=== PATIENT | male | born 1945 | race Caucasian/White ===

== ENCOUNTER 2017-08-29 09:38 | Emergency (ER) | payer MEDICARE ==
[~2017-08-29] VITALS: Ht 175.3 cm; Wt 74.8 kg
[~2017-08-29 09:38] MED LIST: FLOMAX0.4 MG PO; GABAPENTIN300 MG PO; HUMULIN R100 UNIT/2 SQ; LANTUS100 UNITS/ SQ; LASIX40 MG PO; OMEPRAZOLE40 MG PO; SPIRONOLACTONE25 MG PO; TRAZODONE HCL50 MG PO; Z.0.DIGOXIN250 MCG; Z.0.GABAPENTIN600 MG; Z.0.OMEPRAZOLE20 M1; Z.0.TAMSULOSIN HCL0.; Z.0.TRAZODONE HCL100; Z.2.METFORMIN HCL500; [UNRECOGNIZED DRUG - OTHER]
[2017-08-29] MEDS ORDERED: IBUPROFEN 400 MG TAB PO STA (11:34)
[2017-08-29 12:02] LABS: BASOPHILS % 0.2 % (0.0-1.0); EOSINOPHILS % 0.1 % (0.0-6.0); HEMATOCRIT 35.7 % (38.2-49.6); HEMOGLOBIN 11.1 g/dL (14.0-18.0); LYMPHOCYTES % 8.3 % (18.0-39.1); MEAN CORPUSCULAR HEMOGLOBIN 26.9 pg (28-32); MEAN CORPUSCULAR HGB CONC 31.1 g/dL (31-35); MEAN CORPUSCULAR VOLUME 86.4 fL (81-99); MONOCYTES # (AUTO) 0.9 (0.2-0.8); MONOCYTES % 7.8 % (4.4-11.3); NEUTROPHILS # (AUTO) 10.1 (2.1-6.9); NEUTROPHILS % 83.2 % (38.7-80.0); PLATELET COUNT 222 x10e3/uL (140-360); RED BLOOD COUNT 4.13 x10e6/uL (4.3-5.7); RED CELL DISTRIBUTION WIDTH 18.3 % (11.7-14.4)
[2017-08-29 12:18] LABS: ALBUMIN 3.6 g/dL (3.5-5.0); ALBUMIN/GLOBULIN RATIO 0.9 (0.8-2.0); ANION GAP 13.9 mmol/L (8-16); CALCIUM 9.1 mg/dL (8.4-10.2); CREATININE, SERUM 1.87 mg/dL (0.72-1.25); POTASSIUM 3.9 mmol/L (3.5-5.1)
[2017-08-29 12:26] LABS: CREATINE KINASE MB 0.9 ng/mL (0.00-5.00); TROPONIN I 0.066 ng/mL (0-0.300)
[2017-08-29 12:29] LABS: B-TYPE NATRIURETIC PEPTIDE2 925.6 pg/mL (0-100)
--- NOTE | 2017-08-29 12:30 | Diagnostic Imaging Report ---
PROCEDURE:CHEST 2 VIEWS TECHNIQUE:Portable AP chest INDICATION:Shortness of breath COMPARISON:[facility], , CHEST 2 VIEWS, 12/21/2016, 14:15. FINDINGS: Lungs are clear and symmetrically inflated. No pleural effusions. Normal heart size and mediastinal contour. 2-lead AICD/pacemaker over the left hemithorax. Skeleton is intact. Unchanged seventh and eighth rib osseous bridging. CONCLUSION: No acute abnormality or change from December 2016. Dictated by: Jordin Ramirez M.D. on 08/29/2017 at 12:38 Electronically approved by: Jordin Ramirez M.D. on 08/29/2017 at 12:38
[2017-08-29] MEDS ORDERED: ALBUTEROL SULF 0.083% NEB SOLN 3 ML NEB NEB STA (13:05)
[2017-08-29] MEDS ORDERED: IBUPROFEN 400 MG TAB PO ONE (14:45)
[2017-08-29] MEDS ORDERED: IBUPROFEN 600 MG TAB ONE (14:50)
[2017-08-29] MEDS ORDERED: IBUPROFEN 600 MG TAB PO NR (15:00)
== END 2017-08-29 15:37 | disposition home or self-care (01) ==
LOC: ER 09:38
DX: R50.9 Fever, unspecified (principal); R05 Cough; J09.X2 Influenza due to identified novel influenza A virus with other respiratory manifestations; I10 Essential (primary) hypertension; E11.9 Type 2 diabetes mellitus without complications; I25.10 Atherosclerotic heart disease of native coronary artery without angina pectoris; I50.9 Heart failure, unspecified; J44.9 Chronic obstructive pulmonary disease, unspecified; Z95.810 Presence of automatic (implantable) cardiac defibrillator
CPT/HCPCS: 36415; 71020; 80053; 82550; 82553; 83605; 83880; 84484; 85025; 87040; 87400; 93005; 99284

== ENCOUNTER 2018-07-17 12:45 | Observation (INO) | payer MEDICARE ==
[~2018-07-17] VITALS: Ht 175.3 cm; Wt 69.9 kg
--- OUTSIDE RECORDS SUMMARY | 2018-07-17 12:49 | XMS REPORT | Continuity of Care Document ---
Author Author Priya [facility] Interface Address Unknown Phone Unavailable Problems Problem Status Onset Date Classification Date Reported Comments Source Discharge Diagnosis: Acute alcohol intoxication 04/22/2016 04/25/2016 [facility] Discharge Diagnosis: Avulsion of skin of forearm 04/22/2016 04/25/2016 [facility] Discharge Diagnosis: Laceration of scalp 04/22/2016 04/25/2016 [facility] Discharge Diagnosis: Facial abrasion 04/22/2016 04/25/2016 [facility] INTOXICATION-FALL Active 04/21/2016 [facility] CHEST PAIN, CHF EXACERBATION Active 05/25/2015 [facility] ABNORMAL LABS Active 05/25/2015 [facility] SHORT OF BREATH Active 11/12/2011 [facility] LEG PAIN Active 08/31/2011 [facility] KNEE PAIN, CELLULITIS Active 08/31/2011 [facility] Acid reflux Active Problem 04/25/2016 [facility] AF - Atrial fibrillation Active Problem 04/25/2016 [facility] Arthritis Active Problem 04/25/2016 [facility] Cardiac pacemaker Active Problem 04/25/2016 [facility] CHF - Congestive heart failure Active Problem 04/25/2016 [facility] Diabetes Resolved Problem 04/25/2016 [facility] DM - Diabetes mellitus Active Problem 04/25/2016 [facility] Enlarged prostate Active Problem 04/25/2016 [facility] FH: Hypercholesterolemia Active Problem 04/25/2016 [facility] Gout Resolved Problem 04/25/2016 [facility] HTN (<span [id number]</span>) Resolved Problem 04/25/2016 [facility] HTN - Hypertension Active Problem 04/25/2016 [facility] Peripheral neuropathy Active Problem 04/25/2016 [facility] Acid reflux Active Problem 11/17/2011 [facility] AF - Atrial fibrillation Active Problem 11/17/2011 [facility] Arthritis Active Problem 11/17/2011 [facility] Cardiac pacemaker Active Problem 11/17/2011 [facility] CHF - Congestive heart failure Active Problem 11/17/2011 [facility] DM - Diabetes mellitus Active Problem 11/17/2011 [facility] Enlarged prostate Active Problem 11/17/2011 [facility] FH: Hypercholesterolemia Active Problem 11/17/2011 [facility] HTN - Hypertension Active Problem 11/17/2011 [facility] Peripheral neuropathy Active Problem 11/17/2011 [facility] SHORTNESS OF BREATH Active [facility] CELLULITIS NOS Active [facility] Medications Medication Details Route Status Patient Instructions Ordering Provider Order Date Source clopidogrel 75 mg, 1 tab, Route: PO, Drug form: TAB, Daily, Dosing Weight 72.727, kg, Start date: 05/27/15 9:00:00, Duration: 30 day, Stop date: 06/25/15 9:00:00Notes: (Same As: Plavix) No Longer Active 05/27/2015 [facility] Spironolactone 25 mg, 1 tab, Route: PO, Drug form: TAB, Daily, Dosing Weight 72.727, kg, Start date: 05/27/15 9:00:00, Duration: 30 day, Stop date: 06/25/15 9:00:00Notes: (Same As: Aldactone) No Longer Active 05/27/2015 [facility] Omeprazole 20 mg, Route: PO, Drug form: DRC, Daily, Dosing Weight 72.727, kg, Start date: 05/27/15 9:00:00, Duration: 30 day, Stop date: 06/25/15 9:00:00 No Longer Active 05/27/2015 [facility] Allopurinol 100 mg, 1 tab, Route: PO, Drug form: TAB, Daily, Dosing Weight 72.727, kg, Start date: 05/27/15 9:00:00, Duration: 30 day, Stop date: 06/25/15 9:00:00Notes: (Same as: Zyloprim) No Longer Active 05/27/2015 [facility] Lantus Route: SUB-Q, Bedtime, Dosing Weight 72.727, kg, Start date: 05/26/15 21:00:00, Duration: 30 day, Stop date: 06/24/15 21:00:00 Inactive 05/27/2015 [facility] Levemir FlexPen 40 unit, 0.4 mL, Route: SUB-Q, Drug form: INJ, Bedtime, Start date: 05/26/15 21:00:00, Duration: 30 day, Stop date: 06/24/15 21:00:00Notes: Same as Levemir Do not hold insulin without contacting prescriber "single patient use only" Inactive 05/27/2015 [facility] Trazodone Hydrochloride 100 MG Oral Tablet 100 mg, 1 tab, Route: PO, Drug form: TAB, Bedtime, Dosing Weight 72.727, kg, Start date: 05/26/15 21:00:00, Duration: 30 day, Stop date: 06/24/15 21:00:00 Inactive 05/27/2015 [facility] gabapentin 600 MG Oral Tablet 600 mg, 1 tab, Route: PO, Drug form: TAB, BID, Dosing Weight 72.727, kg, Start date: 05/26/15 17:00:00, Duration: 30 day, Stop date: 06/25/15 9:00:00 Inactive 05/26/2015 [facility] Furosemide 40 MG Oral Tablet 40 mg, 1 tab, Route: PO, Drug form: TAB, BID, Dosing Weight 72.727, kg, Start date: 05/26/15 17:00:00, Duration: 30 day, Stop date: 06/25/15 9:00:00Notes: (Same as: Lasix) May cause GI upset. Give with food or milk. Inactive 05/26/2015 [facility] Protonix 40 mg, 1 tab, Route: PO, Drug form: ECTAB, Before Dinner, Start date: 05/26/15 16:30:00, Duration: 30 day, Stop date: 06/24/15 16:30:00Notes: Tablet should not be chewed or crushed. (Same as: Protonix) Inactive 05/26/2015 [facility] {21 (Methylprednisolone 4 MG Oral Tablet [Medrol]) } Pack [Medrol Dosepak] See Instructions, PO, Take by mouth as directed on label., X 6 day, # 1 Pack, 0 Refill(s)Special Instructions: Take by mouth as directed on label. Active 05/26/2015 [facility] Aspirin 81 MG Enteric Coated Tablet 81 mg=1 tab, PO, Daily, # 100 tab, 0 Refill(s) Active 05/26/2015 [facility] Solu-Medrol 40 mg, 1 mL, Route: IVP, Drug form: INJ, ONCE, Dosing Weight 72.727, kg, Priority: NOW, Start date: 05/26/15 14:11:00, Stop date: 05/26/15 14:11:00Notes: (Same as:Solu-MEDROL, A-Methapred) Inactive 05/26/2015 [facility] Aspirin 325 MG Oral Tablet 325 mg, 1 tab, Route: PO, Drug form: TAB, Daily, Dosing Weight 72.727, kg, Start date: 05/26/15 14:00:00, Duration: 30 day, Stop date: 06/24/15 14:00:00Notes: Take with food. Inactive 05/26/2015 [facility] Captopril 12.5 mg, 1 tab, Route: PO, Drug form: TAB, TID, Dosing Weight 72.727, kg, Start date: 05/26/15 13:00:00, Duration: 30 day, Stop date: 06/25/15 9:00:00Notes: Give on empty stomach. 1 hour before meal. (Same As: Capoten) Inactive 05/26/2015 [facility] gabapentin 600 MG Oral Tablet 600 mg, 2 cap, Route: PO, Drug form: CAP, BID, Dosing Weight 72.727, kg, Start date: 05/26/15 9:00:00, Duration: 30 day, Stop date: 06/24/15 17:00:00Notes: (Same as: Neurontin) Inactive 05/26/2015 [facility] gabapentin 600 MG Oral Tablet 600 mg, 2 cap, Route: PO, Drug form: CAP, Bedtime, Dosing Weight 72.727, kg, Start date: 05/26/15 1:40:00, Duration: 30 day, Stop date: 06/24/15 21:00:00Notes: (Same as: Neurontin) Inactive 05/26/2015 [facility] Trazodone Hydrochloride 100 MG Oral Tablet 100 mg, 1 tab, Route: PO, Drug form: TAB, Bedtime, Dosing Weight 72.727, kg, Start date: 05/26/15 1:40:00, Duration: 30 day, Stop date: 06/24/15 21:00:00Notes: (Same As: Desyrel) Inactive 05/26/2015 [facility] Insulin, Aspart, Human 4 unit, 0.04 mL, Route: SUB-Q, Drug form: SOLN, TID-Before Meals, Dosing Weight 72.727, kg, PRN Blood Glucose Results, Start date: 05/25/15 22:41:00, Duration: 30 day, Stop date: 06/24/15 22:40:00Notes: Roll in palms of hands gently; Do not shake vigorously. (Same as: NovoLOG) "single patient use only" Stable for 28 days at room temperature. Expires in days from Date No Longer Active 05/26/2015 [facility] Glucagon 1 mg, Route: IM, Drug form: PDR/INJ, PRN, Dosing Weight 72.727, kg, PRN Blood Glucose Results, Start date: 05/25/15 22:41:00, Duration: 30 day, Stop date: 06/24/15 22:40:00 No Longer Active 05/26/2015 [facility] Dextrose 50% Syringe 12.5 gm, 25 mL, Route: IVP, Drug Form: INJ, Dosing Weight 72.727, kg, PRN, PRN Blood Glucose Results, Start date: 05/25/15 22:41:00, Duration: 30 day, Stop date: 06/24/15 22:40:00 No Longer Active 05/26/2015 [facility] Lantus 40 units, SUB-Q, Bedtime, 0 Refill(s) Active 05/26/2015 [facility] spironolactone 25 mg oral tablet 25 mg=1 tab, PO, Daily, # 90 tab, 1 Refill(s) Active 05/26/2015 [facility] allopurinol 100 mg oral tablet 100 mg=1 tab, PO, Daily, # 90 tab, 1 Refill(s) Active 05/26/2015 [facility] Furosemide 40 MG Oral Tablet 40 mg=1 tab, PO, BID, # 30 tab, 0 Refill(s) Active 05/26/2015 [facility] clopidogrel 75 mg oral tablet 75 mg=1 tab, PO, Daily, # 30 tab, 0 Refill(s) Active 05/26/2015 [facility] Saline Flush 0.9% 10 ml, Route: IVP, Drug Form: INJ, Dosing Weight 72.727, kg, Q12H, Start date: 05/25/15 21:00:00, Duration: 30 day, Stop date: 06/24/15 9:00:00Notes: (Same as: BD Posiflush) No Longer Active 05/26/2015 [facility] nitroglycerin 0.4 mg sublingual tablet 0.4 mg, 1 tab, Route: SL, Drug form: TAB, Q5Min, PRN Chest Pain, Start date: 05/25/15 20:48:00, Duration: 30 day, Stop date: 06/24/15 20:47:00Notes: (Same as:Nitroquick, Nitrostat) "Do Not Crush" Sublingual tablet No Longer Active 05/26/2015 [facility] atropine 0.5 mg, 5 mL, Route: IVP, Drug form: INJ, PRN, PRN Bradycardia, Start date: 05/25/15 20:48:00, Duration: 30 day, Stop date: 06/24/15 20:47:00 No Longer Active 05/26/2015 [facility] Saline Flush 0.9% 10 ml, Route: IVP, Drug Form: INJ, Dosing Weight 72.727, kg, PRN, PRN Line Flush, Start date: 05/25/15 18:56:00, Duration: 30 day, Stop date: 06/24/15 18:55:00Notes: (Same as: BD Posiflush) No Longer Active 05/25/2015 [facility] Nitroglycerin 0.4 mg, 1 tab, Route: SL, Drug form: TAB, Q5Min, Dosing Weight 72.727, kg, PRN Chest Pain, Start date: 05/25/15 18:56:00, Duration: 3 doses or times, Stop date: Limited # of timesNotes: (Same as:Nitroqu ick, Nitrostat) "Do Not Crush" Sublingual tablet Inactive 05/25/2015 [facility] Lasix 20 mg, 2 mL, Route: IVP, Drug form: INJ, ONCE, Dosing Weight 72.727, kg, Priority: STAT, Start date: 05/25/15 17:16:00, Stop date: 05/25/15 17:16:00Notes: (Same as: Lasix) Inactive 05/25/2015 [facility] Aspirin 325 mg, 1 tab, Route: PO, Drug form: TAB, ONCE, Dosing Weight 72.727, kg, Priority: STAT, Start date: 05/25/15 15:40:00, Stop date: 05/25/15 15:40:00Notes: Take with food. Inactive 05/25/2015 [facility] pneumococcal 23-valent vaccine 0.5 ml, Route: IM, Daily, Start date: 11/16/11 9:00:00, Duration: 1 doses or times, Stop date: 11/16/11 9:00:00 IM No Longer Active [facility] 11/16/2011 [facility] Ceftin 500 mg oral tablet 500 mg, 1 tab, PO, BID, 20 tab, Substitution Allowed PO Active [facility] 11/15/2011 [facility] Lasix 40 mg oral tablet 40 mg, 1 tab, PO, Daily, 30 tab, Substitution Allowed, TAB PO Active [facility] 11/15/2011 [facility] Lomotil oral tablet 1 tab, Route: PO, Drug Form: TAB, Q6H, PRN Loose Stools, Start date: 11/14/11 16:26:00, Duration: 30 day, Stop date: 12/14/11 16:25:00 PO No Longer Active [facility] 11/14/2011 [facility] captopril 12.5 mg, 1 tab, Route: PO, Drug form: TAB, Q12H, Start date: 11/14/11 9:00:00, Duration: 30 day, Stop date: 12/13/11 21:00:00 PO No Longer Active [facility] 11/14/2011 [facility] Klor-Con 10 20 mEq, 1 tab, Route: PO, Drug form: ERTAB, Daily, Start date: 11/14/11 9:00:00, Duration: 30 day, Stop date: 12/13/11 9:00:00 PO No Longer Active [facility] 11/14/2011 [facility] tamsulosin 0.4 mg, 1 cap, Route: PO, Drug form: CAP, Daily, Start date: 11/14/11 9:00:00, Duration: 30 day, Stop date: 12/13/11 9:00:00 PO No Longer Active [facility] 11/14/2011 [facility] lisinopril 5 mg, 1 tab, Route: PO, Drug form: TAB, Daily, Start date: 11/14/11 9:00:00, Duration: 30 day, Stop date: 12/13/11 9:00:00 PO No Longer Active [facility] 11/14/2011 [facility] captopril Route: PO, Daily, Start date: 11/14/11 9:00:00, Duration: 30 day, Stop date: 12/13/11 9:00:00 PO No Longer Active [facility] 11/14/2011 [facility] Lasix 40 mg, 4 mL, Route: IVP, Drug form: INJ, Daily, Start date: 11/14/11 9:00:00, Duration: 30 day, Stop date: 12/13/11 9:00:00 IVP No Longer Active [facility] 11/14/2011 [facility] Nexium 40 mg, Route: PO, Daily, Start date: 11/14/11 9:00:00, Duration: 30 day, Stop date: 12/13/11 9:00:00 PO No Longer Active [facility] 11/14/2011 [facility] digoxin 125 mcg (0.125 mg) oral tablet 0.125 mg, 1 tab, Route: PO, Drug form: TAB, Daily, Start date: 11/14/11 6:00:00, Duration: 30 day, Stop date: 12/13/11 6:00:00 PO No Longer Active [facility] 11/14/2011 [facility] Cipro 400 mg, 200 mL, Route: IVPB, Drug form: INJ, Q12H, Start date: 11/13/11 21:00:00, Duration: 30 day, Stop date: 12/13/11 9:00:00 IVPB No Longer Active [facility] 11/14/2011 [facility] trazodone 100 mg oral tablet 100 mg, 2 tab, Route: PO, Drug form: TAB, Bedtime, Start date: 11/13/11 21:00:00, Duration: 30 day, Stop date: 12/12/11 21:00:00 PO No Longer Active [facility] 11/14/2011 [facility] Coreg 3.125 mg, 1 tab, Route: PO, Drug form: TAB, Q12H, Start date: 11/13/11 21:00:00, Duration: 30 day, Stop date: 12/13/11 9:00:00 PO No Longer Active [facility] 11/14/2011 [facility] cefepime 1 gm, Route: IVPB, Q12H, Start date: 11/13/11 20:00:00, Duration: 30 day, Stop date: 12/13/11 8:00:00 IVPB No Longer Active [facility] 11/14/2011 [facility] metFORmin 500 mg oral tablet 500 mg, 1 tab, Route: PO, Drug form: TAB, BID, Start date: 11/13/11 17:00:00, Duration: 30 day, Stop date: 12/13/11 9:00:00 PO No Longer Active [facility] 11/13/2011 [facility] gabapentin 300 mg oral capsule 600 mg, 2 cap, Route: PO, Drug form: CAP, BID, Start date: 11/13/11 17:00:00, Duration: 30 day, Stop date: 12/13/11 9:00:00 PO No Longer Active [facility] 11/13/2011 [facility] nitroglycerin 0.4 mg sublingual tablet 0.4 mg, 1 tab, Route: SL, Drug form: TAB, Q5Min, PRN Chest Pain, Start date: 11/13/11 15:15:00, Duration: 30 day, Stop date: 12/13/11 16:14:00 SL No Longer Active [facility] 11/13/2011 [facility] atropine 0.5 mg, 5 mL, Route: IVP, Drug form: INJ, PRN, PRN Bradycardia, Start date: 11/13/11 15:15:00, Duration: 30 day, Stop date: 12/13/11 16:14:00 IVP No Longer Active [facility] 11/13/2011 [facility] Protonix 40 mg, 1 tab, Route: PO, Drug form: ECTAB, Before Dinner, Start date: 11/13/11 13:30:00, Duration: 30 day, Stop date: 12/12/11 16:30:00 PO No Longer Active [facility] 11/13/2011 [facility] aspirin 81 mg tablet, chewable 81 mg, 1 tab, Route: PO, Drug form: CHEWTAB, Every Other Day, Start date: 11/13/11 13:30:00, Duration: 30 day, Stop date: 12/13/11 9:00:00 PO No Longer Active [facility] 11/13/2011 [facility] Lovenox 40 mg, 0.4 mL, Route: SUB-Q, Drug form: INJ, [id number], Start date: 11/13/11 13:00:00, Duration: 30 day, Stop date: 12/12/11 13:00:00 SUB-Q No Longer Active [facility] 11/13/2011 [facility] insulin aspart 3 unit, 0.03 mL, Route: SUB-Q, Drug form: SOLN, TID-Before Meals, PRN Blood Glucose Results, Start date: 11/13/11 12:55:00, Duration: 30 day, Stop date: 12/13/11 12:54:00 SUB-Q No Longer Active [facility] 11/13/2011 [facility] Dextrose 50% Syringe 25 gm, 50 mL, Route: IVP, Drug Form: INJ, PRN, PRN Blood Glucose Results, Start date: 11/13/11 12:55:00, Duration: 30 day, Stop date: 12/13/11 13:54:00 IVP No Longer Active [facility] 11/13/2011 [facility] glucagon 1 mg, Route: IM, Drug form: PDR/INJ, PRN, PRN Blood Glucose Results, Start date: 11/13/11 12:55:00, Duration: 30 day, Stop date: 12/13/11 13:54:00 IM No Longer Active [facility] 11/13/2011 [facility] nitroglycerin 2% ointment 1 inch, Route: TOP, Drug Form: OINT, Q6H, Start date: 11/13/11 12:00:00, Duration: 30 day, Stop date: 12/13/11 6:00:00 TOP No Longer Active [facility] 11/13/2011 [facility] [place] 10/325 oral tablet 1 tab, Route: PO, Drug Form: TAB, ONCE, PRN Pain, Start date: 11/13/11 11:35:00, Stop date: 12/13/11 11:34:00 PO No Longer Active [facility] 11/13/2011 [facility] furosemide 40 mg, Route: IVP, ONCE, Priority: STAT, Start date: 11/13/11 9:22:00, Stop date: 11/13/11 9:22:00 IVP No Longer Active [facility] 11/13/2011 [facility] ciprofloxacin 400 mg, 200 mL, Route: IVPB, Drug form: INJ, ONCE, Priority: STAT, Start date: 11/13/11 8:10:00, Stop date: 11/13/11 8:10:00 IVPB No Longer Active [facility] 11/13/2011 [facility] cefepime 2 gm, Route: IVPB, ONCE, Priority: STAT, Start date: 11/13/11 8:09:00, Stop date: 11/13/11 8:09:00 IVPB No Longer Active [facility] 11/13/2011 [facility] clindamycin 300 mg oral capsule 300 mg, 1 cap, PO, Q6H, 56 cap, Substitution Allowed, CAP PO Active [facility] 09/02/2011 [facility] Levemir FlexPen 17 unit, 0.17 mL, Route: SUB-Q, Drug form: INJ, BID, Start date: 09/01/11 17:00:00, Duration: 30 day, Stop date: 10/01/11 9:00:00 SUB-Q No Longer Active [facility] 09/01/2011 [facility] Protonix 40 mg, 1 tab, Route: PO, Drug form: ECTAB, Before Dinner, Start date: 09/01/11 16:30:00, Duration: 30 day, Stop date: 09/30/11 16:30:00 PO No Longer Active [facility] 09/01/2011 [facility] captopril 12.5 mg, 1 tab, Route: PO, Drug form: TAB, Daily, Start date: 09/01/11 10:13:00, Duration: 30 day, Stop date: 10/01/11 9:00:00 PO No Longer Active [facility] 09/01/2011 [facility] vancomycin 1 gm, 250 mL, Route: IVPB, Drug form: INJ, [id number], Start date: 09/01/11 10:00:00, Duration: 30 day, Stop date: 09/30/11 22:00:00 IVPB No Longer Active [facility] 09/01/2011 [facility] influenza virus vaccine, inactivated 0.5 ml, Route: IM, Drug Form: INJ, Start date: 09/01/11 9:00:00, Stop date: 09/01/11 9:00:00 IM No Longer Active [facility] 09/01/2011 [facility] Lanoxin 0.125 mg, 1 tab, Route: PO, Drug form: TAB, Daily, Start date: 09/01/11 9:00:00, Duration: 30 day, Stop date: 09/30/11 9:00:00 PO No Longer Active [facility] 09/01/2011 [facility] Flomax 0.4 mg, 1 cap, Route: PO, Drug form: CAP, Daily, Start date: 09/01/11 9:00:00, Duration: 30 day, Stop date: 09/30/11 9:00:00 PO No Longer Active [facility] 09/01/2011 [facility] aspirin 81 mg tablet, chewable 81 mg, 1 tab, Route: CHEW, Drug form: CHEWTAB, Every Other Day, Start date: 09/01/11 9:00:00, Duration: 30 day, Stop date: 09/29/11 9:00:00 CHEW No Longer Active [facility] 09/01/2011 [facility] Nexium 40 mg, Route: PO, Daily, Start date: 09/01/11 9:00:00, Duration: 30 day, Stop date: 09/30/11 9:00:00 PO No Longer Active [facility] 09/01/2011 [facility] Glucophage 500 mg, 1 tab, Route: PO, Drug form: TAB, BID- Meals, Start date: 09/01/11 8:00:00, Duration: 30 day, Stop date: 09/30/11 17:00:00 PO No Longer Active [facility] 09/01/2011 [facility] clindamycin 600 mg, 4 mL, Route: IVPB, [id number], Priority: Routine, Start date: 09/01/11 0:00:00, Duration: 30 day, Stop date: 09/30/11 18:00:00 IVPB No Longer Active [facility] 09/01/2011 [facility] Neurontin 600 mg, 2 cap, Route: PO, Drug form: CAP, BID, Start date: 08/31/11 22:30:00, Duration: 30 day, Stop date: 09/30/11 17:00:00 PO No Longer Active [facility] 09/01/2011 [facility] trazodone 100 mg oral tablet 100 mg, 1 tab, Route: PO, Drug form: TAB, Bedtime, Start date: 08/31/11 22:30:00, Duration: 30 day, Stop date: 09/30/11 21:00:00 PO No Longer Active [facility] 09/01/2011 [facility] ondansetron 4 mg, 2 mL, Route: IVP, Drug form: INJ, Q6H, PRN Nausea & Vomiting, Priority: Routine, Start date: 08/31/11 20:02:00, Duration: 30 day, Stop date: 09/30/11 20:01:00 IVP No Longer Active [facility] 09/01/2011 [facility] morphine Sulfate 4 mg, 2 mL, Route: IVP, Drug form: INJ, Q6H, PRN Pain, Priority: Routine, Start date: 08/31/11 20:02:00, Duration: 30 day, Stop date: 09/30/11 20:01:00 IVP No Longer Active [facility] 09/01/2011 [facility] Dilaudid Route: IV, ONCE, Start date: 08/31/11 18:36:00, Stop date: 08/31/11 18:36:00 IV No Longer Active [facility] 09/01/2011 [facility] morphine Sulfate 4 mg, Route: IVP, ONCE, Start date: 08/31/11 18:23:00, Stop date: 08/31/11 18:23:00 IVP No Longer Active [facility] 09/01/2011 [facility] Lovenox 40 mg, 0.4 mL, Route: SUB-Q, Drug form: INJ, [id number], Start date: 08/31/11 18:00:00, Duration: 30 day, Stop date: 09/29/11 18:00:00 SUB-Q No Longer Active [facility] 09/01/2011 [facility] vancomycin 1 gm, 250 mL, Route: IVPB, Drug form: INJ, Q24H, Start date: 08/31/11 17:00:00, Stop date: 09/29/11 17:00:00 IVPB No Longer Active [facility] 08/31/2011 [facility] metFORmin 500 mg oral tablet 500 mg, 1 tab, PO, BID, 30 tab, Substitution Allowed PO Active 08/31/2011 [facility] captopril unknown, PO, Daily, Substitution Allowed PO Active 08/31/2011 [facility] aspirin 81 mg tablet, chewable 81 mg, 1 tab, PO, Every Other Day, Substitution Allowed PO Active 08/31/2011 [facility] Tylenol 650 mg, 2 tab, Route: PO, Drug form: TAB, Q4H, PRN Fever, Start date: 08/31/11 16:21:00, Duration: 30 day, Stop date: 09/30/11 16:20:00 PO No Longer Active [facility] 08/31/2011 [facility] glucagon 1 mg, Route: IM, Drug form: PDR/INJ, PRN, PRN Blood Glucose Results, Start date: 08/31/11 16:16:00, Duration: 30 day, Stop date: 09/30/11 16:15:00 IM No Longer Active [facility] 08/31/2011 [facility] insulin aspart 3 unit, 0.03 mL, Route: SUB-Q, Drug form: SOLN, Bedtime, PRN Blood Glucose Results, Start date: 08/31/11 16:16:00, Duration: 30 day, Stop date: 09/30/11 16:15:00 SUB-Q No Longer Active [facility] 08/31/2011 [facility] Dextrose 50% Syringe 12.5 gm, 25 mL, Route: IVP, Drug Form: INJ, PRN, PRN Blood Glucose Results, Start date: 08/31/11 16:16:00, Duration: 30 day, Stop date: 09/30/11 16:15:00 IVP No Longer Active [facility] 08/31/2011 [facility] morphine Sulfate 4 mg, 2 mL, Route: IVP, Drug form: INJ, ONCE, Start date: 08/31/11 16:15:00, Stop date: 08/31/11 16:15:00 IVP No Longer Active [facility] 08/31/2011 [facility] clindamycin 600 mg, 4 mL, Route: IVPB, Drug form: INJ, ONCE, Priority: STAT, Start date: 08/31/11 12:07:00, Stop date: 08/31/11 12:07:00 IVPB No Longer Active [facility] 08/31/2011 [facility] ondansetron 4 mg, 2 mL, Route: IVP, Drug form: INJ, ONCE, Priority: STAT, Start date: 08/31/11 12:07:00, Stop date: 08/31/11 12:07:00 IVP No Longer Active [facility] 08/31/2011 [facility] morphine Sulfate 4 mg, 2 mL, Route: IVP, Drug form: INJ, ONCE, Priority: STAT, Start date: 08/31/11 12:07:00, Stop date: 08/31/11 12:07:00 IVP No Longer Active [facility] 08/31/2011 [facility] Allergies, Adverse Reactions, Alerts Substance Category Reaction Severity Reaction type Status Date Reported Comments Source Immunizations Immunization Date Given Site Status Last Updated Comments Source influenza virus vaccine, inactivated 09/01/2011 Not Given [facility] Results Order Name Results Value Reference Range Date Interpretation Comments Source Spine cervical wo contrast CT Spine cervical wo contrast CT Patient Name: ELENO ROBERT : 1945; Age: 70 years y/o Male MR: [id number] Study: Spine cervical wo contrast CT 04/22/2016 1:14 AM CDT Clinical Indication: Neck pain, Trauma; Comparison: None Technique: Multi-detector CT imaging of the cervical spine is performed. Coronal and sagittal reconstructions were obtained. FINDINGS: ALIGNMENT AND GENERAL ASSESSMENT: No cervical spine fracture or subluxation. Bilateral vertebral, bilateral carotid artery calcification and calcification along the great vessels. DISK SPACES AND SOFT TISSUES: C2-C3: No focal herniated nucleus pulposus, neural foraminal narrowing or spinal canal stenosis. C3-C4: Bilateral facet hypertrophy causes severe left C3-C4 neural foraminal narrowing. No right C3-C4 neural foraminal narrowing. No spinal canal stenosis. C4-C5: Bilateral facet hypertrophy. No focal herniated nucleus pulposus, neural foraminal narrowing or spinal canal stenosis. C5-C6: Bilateral facet hypertrophy. No focal herniated nucleus pulposus, neural foraminal narrowing or spinal canal stenosis. C6-C7: No focal herniated nucleus pulposus, neural foraminal narrowing or spinal canal stenosis. C7-T1: No focal herniated nucleus pulposus, neural foraminal narrowing or spinal canal stenosis. VISUALIZED LUNG APICES: unremarkable CT myelogram or MRI of the cervical spine may be performed, if there is further concern. IMPRESSION: 1. No cervical spine fracture or subluxation. 2. Multilevel facet hypertrophy. 3. Severe left C3-C4 neural foraminal narrowing. SL: JACEK 04/22/2016 - - Read by: Luis Lowry MD Dictated Date/time: 04/22/16 01:34 Electronically Signed by: Luis Lowry MD 04/22/16 01:41 FINAL REPORT [facility] Brain wo contrast CT Brain wo contrast CT Patient Name: ELENO ROBERT : 1945; Age: 70 years y/o Male MR: [id number] Study: Brain wo contrast CT 04/21/2016 11:48 PM CDT Clinical Indication: Altered mental status; Comparison: None TECHNIQUE: CT images were obtained from the foramen magnum to the vertex without the use of intravenous contrast on a multidetector CT. Coronal and sagittal reconstructions were obtained. FINDINGS: BRAIN PARENCHYMA: Bilateral vertebral and bilateral carotid artery calcification. Patchy low density in the right basal ganglia and right parietal white matter most consistent with small vessel changes. No evidence for subarachnoid, intraparenchymal or intraventricular hemorrhage. No significant extra-axial fluid collection, mass effect or shift. No evidence for an acute infarction. VENTRICLES: Ventricles and sulci are within normal limits for the patient's age. ORBITS, MASTOIDS AND PARANASAL SINUSES: There is right orbital preseptal soft tissue swelling. SKULL: There are no osseous abnormalities. If there is further concern for intracranial pathology or acute stroke, MRI of the brain may be performed for complete assessment. IMPRESSION: 1. Intracranial vascular calcification as above. 2. Small vessel changes. 3. Right orbital preseptal soft tissue swelling. 4. Otherwise unremarkable head CT without contrast. SL: CSODERSKAITY-DEIRDRE 04/21/2016 - - Read by: Luis Lowry MD Dictated Date/time: 04/22/16 00:16 Electronically Signed by: Luis Lowry MD 04/22/16 00:20 FINAL REPORT [facility] CARDIAC ENZYMES CK MB 0.8 ng/mL 0.5 - 3.6 05/26/2015 [facility] CARDIAC ENZYM[facility] CK MB Index 1.0 0.0 - 2.5 05/26/2015 [facility] CARDI[facility] ENZYM[facility] Troponin-I null 0.00 - 0.40 05/26/2015 [facility] CARDIAC ENZYM[facility] Total CK 77 unit/L 12 - 05/26/2015 [facility] Troponin-I null 0.00 - 0.40 05/26/2015 [facility] CARDIAC ENZYMES Total CK 79 unit/L - 05/26/2015 [facility] CARDIAC ENZYM[facility] CK MB Index 1.4 0.0 - 2.5 05/26/2015 [facility] CARDIAC ENZYM[facility] CK MB 1.1 ng/mL 0.5 - 3.6 05/26/2015 [facility] CARDIAC ENZYM[facility] Troponin-I null 0.00 - 0.40 05/25/2015 [facility] CARDIAC ENZYMES CK MB 1.0 ng/mL 0.5 - 3.6 05/25/2015 [facility] CARDIAC ENZYMES BNP 782 pg/mL <=100 pg/mL 05/25/2015 [facility] CHEM PANEL eGFR 35 mL/min/1.73m2 05/25/2015 Result Comment: The eGFR is calculated using the CKD-EPI formula. In most young, healthy individuals the eGFR will be >90 mL/min/1.73m2. The eGFR declines with age. An eGFR of 60-89 may be normal in some populations, particularly the elderly, for whom the CKD-EPI formula has not been extensively validated. Use of the eGFR is not recommended in the following populations: Individuals with unstable creatinine concentrations, including patients and those with serious co-morbid conditions. Patients with extremes in muscle mass or diet. The data above are obtained from the National Kidney Disease Education Program (NKDEP) which additionally recommends that when the eGFR is used in patients with extremes of body mass index for purposes of drug dosing, the eGFR should be multiplied by the estimated BMI. [facility] CHEM PANEL BUN 30 mg/dL 7 - 22 05/25/2015 [facility] CHEM PANEL Total Protein 8.1 g/dL 6.4 - 8.4 05/25/2015 [facility] CHEM PANEL Calcium Lvl 9.2 mg/dL 8.5 - 10.5 05/25/2015 [facility] CHEM PANEL CO2 28 meq/L 24 - 32 05/25/2015 [facility] CHEM PANEL Creatinine Lvl 1.9 mg/dL 0.5 - 1.4 05/25/2015 [facility] CHEM PANEL Glucose Lvl 99 mg/dL 70 - 99 05/25/2015 [facility] CHEM PANEL Bili Total 0.8 mg/dL 0.2 - 1.3 05/25/2015 [facility] CHEM PANEL AST 11 unit/L 0 - 37 05/25/2015 [facility] CHEM PANEL Alk Phos 95 unit/L 39 - 136 05/25/2015 [facility] CHEM PANEL Albumin Lvl 4.0 g/dL 3.5 - 5.0 05/25/2015 [facility] CHEM PANEL ALT 19 unit/L 0 - 65 05/25/2015 [facility] CHEM PANEL Sodium Lvl 135 meq/L 135 - 145 05/25/2015 [facility] CHEM PANEL Chloride Lvl 101 meq/L 95 - 109 05/25/2015 [facility] CHEM PANEL Potassium Lvl 3.8 meq/L 3.5 - 5.1 05/25/2015 [facility] CHEM PANEL A/G Ratio 1.0 0.7 - 1.6 05/25/2015 [facility] CHEM PANEL Globulin 4.1 g/dL 2.0 - 4.0 05/25/2015 [facility] CHEM PANEL AGAP 9.8 meq/L 10.0 - 20.0 05/25/2015 [facility] CHEM PANEL B/C Ratio 16 6 - 25 05/25/2015 [facility] HEMATOLOGY INR 0.90 0.85 - 1.17 05/25/2015 [facility] HEMATOLOGY PTT 27.4 s 22.9 - 35.8 05/25/2015 [facility] HEMATOLOGY PT 12.4 s 12.0 - 14.7 05/25/2015 [facility] HEMATOLOGY MCH 26.0 pg 27.0 - 31.0 05/25/2015 [facility] HEMATOLOGY RDW 15.9 % 11.5 - 14.5 05/25/2015 [facility] MCHC 31.4 g/dL 32.0 - 36.0 05/25/2015 [facility] HEMATOLOGY WBC 8.4 K/CMM 3.7 - 10.4 05/25/2015 [facility] HEMATOLOGY RBC 4.14 M/CMM 4.70 - 6.10 05/25/2015 [facility] HEMATOLOGY MCV 82.9 fL 80.0 - 94.0 05/25/2015 [facility] HEMATOLOGY Hgb 10.8 g/dL 14.0 - 18.0 05/25/2015 [facility] HEMATOLOGY Hct 34.3 % 42.0 - 54.0 05/25/2015 [facility] HEMATOLOGY Platelet 213 K/CMM 133 - 450 05/25/2015 [facility] HEMATOLOGY MPV 10.3 fL 7.4 - 10.4 05/25/2015 [facility] HEMATOLOGY Lymphocytes # 1.6 K/CMM 1.0 - 5.5 05/25/2015 [facility] HEMATOLOGY Segs-Bands # 5.9 K/CMM 1.5 - 8.1 05/25/2015 [facility] HEMATOLOGY Basophils # 0.1 K/CMM 0.0 - 0.2 05/25/2015 [facility] HEMATOLOGY Basophils 1.0 % 0.0 - 1.0 05/25/2015 [facility] HEMATOLOGY Monocytes # 0.6 K/CMM 0.0 - 0.8 05/25/2015 [facility] Eosinophils # 0.1 K/CMM 0.0 - 0.5 05/25/2015 [facility] HEMATOLOGY Segs 70.1 % 45.0 - 75.0 05/25/2015 [facility] HEMATOLOGY Monocytes 7.6 % 2.0 - 12.0 05/25/2015 [facility] HEMATOLOGY Eosinophils 1.8 % 0.0 - 4.0 05/25/2015 [facility] Lymphocytes 19.5 % 20.0 - 40.0 05/25/2015 [facility] Chest/Abdomen/Pelvis wo IV contrast CT Chest/Abdomen/Pelvis wo IV contrast CT EXAM: CT CHEST WITHOUT CONTRAST. EXAM: CT ABDOMEN PELVIS WITHOUT CONTRAST. DATE: May 25, 2015 05:33:55 PM INDICATION: Generalized abdominal pain. COMPARISON: None. TECHNIQUE: Multiple CT images of the chest, abdomen and pelvis were obtained with reconstructions in the coronal and sagittal planes. No Intravenous contrast was administered FINDINGS: Evaluation is limited due to lack on intravenous contrast. Limited views of the neck soft tissues are within normal limits.. 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 Heart is mildly enlarged.. There is no aortic aneurysm. Artery calcifications are seen. No pericardial effusion is seen. . 1.1 cm right paratracheal lymph node is seen (series 2, image 25). Of centimeters mediastinal lymph nodes are also identified. The trachea and main bronchi are patent. . Biapical paraseptal emphysema is seen. Bilateral upper lobe centrilobular emphysema is also noted. Lingula is linear atelectasis versus scarring is seen. No lung mass or consolidation is identified. No pleural effusion or pneumothorax is seen. Evaluation of the abdomen is limited due to breathing motion artifact. Small hypodensities in the liver probably represent cysts. There is a 1.9 cm left adrenal hypodense nodule measuring fat density. The gall bladder, spleen, right adrenal gland, kidneys and pancreas are grossly within normal limits. Prostate is mildly enlarged. Urinary bladder wall thickening is seen. The small and large bowel are normal in caliber. The appendix is normal.. No free air or free fluid is identified. Moderate calcifications of the abdominal aorta are seen. Bilateral renal hilar vascular calcifications are identified. Small fat containing bilateral inguinal hernias are seen without inflammation. No osseous destructive lesion is identified.. Right posterior 7-10 healed rib fractures are seen. Bilateral gynecomastia is seen, right greater than left. IMPRESSION: 1.No acute abnormality in the chest, abdomen and pelvis. 2. Mild cardiomegaly. 3. Mildly prominent mediastinal lymph nodes are nonspecific. 4. Emphysema. 5. Probable left adrenal adenoma. 6. Mild prostatomegaly. 7. Urinary bladder wall hypertrophy. 8. Chronic right healed rib fractures. SL: 14 05/25/2015 - - Read by: Marcelle Khan MD Dictated Date/time: 05/25/15 18:15 Electronically Signed by: Marcelle Khan MD 05/25/15 18:23 FINAL REPORT [facility] 2 views DX Chest 2 views DX PA and LATERAL CHEST (2 views) HISTORY: Chest pain There are no prior studies available for comparison. Prior studies of 11/13/2011 and 02/26/2011 are not available for comparison or review. The reports from those studies were reviewed. FINDINGS: 1. There is a fracture of the posterior-lateral aspect of the right seventh rib of indeterminate age. This was not described on the prior studies. Please correlate with clinical information and clinical examination. 2. There is hazy opacity in the right lateral mid lung in the region of this fracture. Is not clear whether this represents a pulmonary contusion, postinflammatory change, or small infiltrate. 3. Small (6 mm) nodular density projected of the left midlung between the left fifth and sixth ribs anteriorly. This could represent a nipple shadow. 4. Repeat study with nipple markers or chest CT would be helpful for further evaluation of the above findings. 5. The lungs are otherwise clear per there are no other focal abnormalities or pleural effusions. There is no pneumothorax. 6. The heart is normal in size. There is no evidence of failure. 7. Moderate atherosclerotic calcifications about the thoracic aorta. 8. Left subclavian multiple lead transvenous pacemaker/AICD. Coding: Chest 2 views CPT Code: 01151 SL: 13 Rowdy Gardner M.D. 05/25/2015 - - Read by: Rowdy Gardner MD Dictated Date/time: 05/25/15 16:07 Electronically Signed by: Rowdy Gardner MD 05/25/15 16:13 FINAL REPORT [facility] BEDSIDE GLUCOSE TESTING Comment1 Notify RN/ 11/15/2011 NA [facility] BEDSIDE GLUCOSE TESTING Gluc POC Lifscn 201 mg/dL 65 - 110 11/15/2011 [place] 1Interpretive Data: Upper Reportable Limit: 200 mg/dL. [facility] BEDSIDE GLUCOSE TESTING Comment1 Notify BARBARA 11/15/2011 NA [facility] BEDSIDE GLUCOSE TESTING Gluc POC Lifscn 175 mg/dL 65 - 110 11/15/2011 [place] 2Interpretive Data: Upper Reportable Limit: 200 mg/dL. [facility] BEDSIDE GLUCOSE TESTING Gluc POC Lifscn 220 mg/dL 65 - 110 11/15/2011 [place] 3Interpretive Data: Upper Reportable Limit: 200 mg/dL. [facility] BEDSIDE GLUCOSE TESTING Comment1 Notify BARBARA 11/15/2011 NA [facility] CHEMISTRY Creatinine Lvl 1.3 mg/dL 0.5 - 1.4 11/14/2011 Normal [facility] CHEMISTRY Calcium Lvl 8.8 mg/dL 8.5 - 10.5 11/14/2011 Normal [facility] CHEMISTRY Sodium Lvl 145 meq/L 135 - 145 11/14/2011 Normal [facility] CHEMISTRY Potassium Lvl 3.9 meq/L 3.5 - 5.1 11/14/2011 Normal [facility] CHEMISTRY Chloride Lvl 105 meq/L 95 - 109 11/14/2011 Normal [facility] CHEMISTRY CO2 31 meq/L 24 - 32 11/14/2011 Normal [facility] CHEMISTRY Glucose Lvl 143 mg/dL 11/14/2011 NA 4Interpretive Data: Reference Ranges : 0 - 7 days : 41 - 90 mg/dL7 days - 150 yrs : 70 - 99 mg/dL (fasting), based on the clinical recommendations of the [place] [employer]. [facility] CHEMISTRY BUN 13 mg/dL 7 - 22 11/14/2011 Normal [facility] CHEMISTRY AGAP 12.9 meq/L 10.0 - 20.0 11/14/2011 Normal [facility] HEMATOLOGY WBC 8.1 K/CMM 3.7 - 10.4 11/14/2011 Normal [facility] HEMATOLOGY RBC 3.33 M/CMM 4.70 - 6.10 11/14/2011 LOW [facility] HEMATOLOGY MCV 88.1 fL 80.0 - 94.0 11/14/2011 Normal [facility] HEMATOLOGY Hct 29.3 % 42.0 - 54.0 11/14/2011 LOW [facility] HEMATOLOGY Hgb 9.4 g/dL 14.0 - 18.0 11/14/2011 LOW [facility] HEMATOLOGY MCH 28.2 pg 27.0 - 31.0 11/14/2011 Normal [facility] HEMATOLOGY MCHC 32.0 g/dL 32.0 - 36.0 11/14/2011 Normal [facility] HEMATOLOGY MPV 10.1 fL 7.4 - 10.4 11/14/2011 Normal [facility] HEMATOLOGY Platelet 242 K/CMM 133 - 450 11/14/2011 Normal [facility] HEMATOLOGY RDW 15.4 % 11.5 - 14.5 11/14/2011 HI [facility] HEMATOLOGY Basophils # 0.1 K/CMM 0.0 - 0.2 11/14/2011 Normal [facility] HEMATOLOGY Eosinophils # 0.2 K/CMM 0.0 - 0.5 11/14/2011 Normal [facility] HEMATOLOGY Monocytes # 0.8 K/CMM 0.0 - 0.8 11/14/2011 Normal [facility] HEMATOLOGY Lymphocytes # 1.9 K/CMM 1.0 - 5.5 11/14/2011 Normal [facility] HEMATOLOGY Segs-Bands # 5.1 K/CMM 1.5 - 8.1 11/14/2011 Normal [facility] HEMATOLOGY Eosinophils 2.8 % 0.0 - 4.0 11/14/2011 Normal [facility] HEMATOLOGY Basophils 0.6 % 0.0 - 1.0 11/14/2011 Normal [facility] HEMATOLOGY Segs 63.6 % 45.0 - 75.0 11/14/2011 Normal [facility] HEMATOLOGY Lymphocytes 23.3 % 20.0 - 40.0 11/14/2011 Normal [facility] HEMATOLOGY Monocytes 9.7 % 2.0 - 12.0 11/14/2011 Normal [facility] URINALYSIS UA Nitrite Negative (11/13/2011 08:35:00) Negative 11/13/2011 Normal [facility] URINALYSIS UA Leuk Est Negative (11/13/2011 08:35:00) Negative 11/13/2011 Normal [facility] URINALYSIS UA Urobilinogen 0.2 EU/dL 0.1 - 1.0 11/13/2011 Normal [facility] URINALYSIS UA Bili Negative *NA* (11/13/2011 08:35:00) Negative 11/13/2011 NA [facility] URINALYSIS UA Blood Trace *ABN* (11/13/2011 08:35:00) Negative 11/13/2011 ABN [facility] URINALYSIS UA Ketones Negative *NA* (11/13/2011 08:35:00) Negative 11/13/2011 NA [facility] URINALYSIS UA Protein 100 mg/dL *ABN* (11/13/2011 08:35:00) Negative 11/13/2011 ABN [facility] URINALYSIS UA pH 7.0 5.0 - 8.0 11/13/2011 Normal [facility] URINALYSIS UA Glucose 500 mg/dL *ABN* (11/13/2011 08:35:00) Negative 11/13/2011 ABN [facility] URINALYSIS UA Turbidity Clear (11/13/2011 08:35:00) Clear 11/13/2011 Normal [facility] URINALYSIS UA Spec Grav 1.025 <=1.030 11/13/2011 Normal [facility] URINALYSIS UA Color Yellow *NA* (11/13/2011 08:35:00) Yellow 11/13/2011 NA [facility] URINALYSIS UA RBC None Seen (11/13/2011 08:35:00) 0 - 2 11/13/2011 Normal [facility] URINALYSIS UA Bacteria None Seen (11/13/2011 08:35:00) None Seen 11/13/2011 Normal [facility] URINALYSIS Micro? Performed (11/13/2011 08:35:00) 11/13/2011 Normal [facility] URINALYSIS UA Sq Epi None Seen (11/13/2011 08:35:00) Few 11/13/2011 Normal [facility] URINALYSIS UA WBC None Seen (11/13/2011 08:35:00) None Seen 11/13/2011 Normal [facility] Microbiology Culture: Blood 11/13/2011 [facility] Microbiology Culture: Blood 11/13/2011 [facility] CHEMISTRY AGAP 14.0 meq/L 10.0 - 20.0 11/13/2011 Normal [facility] CHEMISTRY B/C Ratio 12 6 - 25 11/13/2011 Normal [facility] CHEMISTRY Globulin 3.7 g/dL 2.0 - 4.0 11/13/2011 Normal [facility] CHEMISTRY A/G Ratio 0.9 0.7 - 1.6 11/13/2011 Normal [facility] CHEMISTRY AST 7 U/L 0 - 37 11/13/2011 Normal [facility] CHEMISTRY Bili Total 0.3 mg/dL 0.2 - 1.3 11/13/2011 Normal [facility] CHEMISTRY Alk Phos 89 U/L 39 - 136 11/13/2011 Normal [facility] CHEMISTRY Albumin Lvl 3.3 g/dL 3.5 - 5.0 11/13/2011 LOW [facility] CHEMISTRY ALT 21 U/L 0 - 65 11/13/2011 Normal [facility] CHEMISTRY Total Protein 7.0 g/dL 6.4 - 8.4 11/13/2011 Normal [facility] CHEMISTRY Calcium Lvl 8.8 mg/dL 8.5 - 10.5 11/13/2011 Normal [facility] CHEMISTRY Potassium Lvl 4.0 meq/L 3.5 - 5.1 11/13/2011 Normal [facility] CHEMISTRY Chloride Lvl 107 meq/L 95 - 109 11/13/2011 Normal [facility] CHEMISTRY BUN 14 mg/dL 7 - 22 11/13/2011 Normal [facility] CHEMISTRY CO2 28 meq/L 24 - 32 11/13/2011 Normal [facility] CHEMISTRY Glucose Lvl 192 mg/dL 11/13/2011 NA 5Interpretive Data: Reference Ranges : 0 - 7 days : 41 - 90 mg/dL7 days - 150 yrs : 70 - 99 mg/dL (fasting), based on the clinical recommendations of the [place] [employer]. [facility] CHEMISTRY Creatinine Lvl 1.2 mg/dL 0.5 - 1.4 11/13/2011 Normal [facility] CHEMISTRY Sodium Lvl 145 meq/L 135 - 145 11/13/2011 Normal [facility] CHEMISTRY CK MB 1.2 ng/mL 0.5 - 3.6 11/13/2011 Normal [facility] CHEMISTRY Total CK 69 U/L 12 - 191 11/13/2011 Normal [facility] CHEMISTRY Troponin-I null 0.00 - 0.40 11/13/2011 Normal [facility] CHEMISTRY BNP 1419 pg/mL <=100 11/13/2011 [place] 6Interpretive Data: Elevated results are in line with increasing severity of congestive heart failure. Minor elevations between 100 and 300 may be seen with Myocardial Ischemia, Sodium retaining drugs, and compensated/treated heart failure. [facility] CHEMISTRY Digoxin Lvl 0.8 ng/mL 0.8 - 2.0 11/13/2011 Normal [facility] CHEMISTRY CK MB Index 1.7 0.0 - 2.5 11/13/2011 Normal [facility] HEMATOLOGY MPV 9.9 fL 7.4 - 10.4 11/13/2011 Normal [facility] HEMATOLOGY Platelet 284 K/CMM 133 - 450 11/13/2011 Normal [facility] HEMATOLOGY RDW 15.5 % 11.5 - 14.5 11/13/2011 [facility] HEMATOLOGY MCHC 32.8 g/dL 32.0 - 36.0 11/13/2011 Normal [facility] HEMATOLOGY MCH 28.8 pg 27.0 - 31.0 11/13/2011 Normal [facility] HEMATOLOGY Hgb 10.7 g/dL 14.0 - 18.0 11/13/2011 [facility] HEMATOLOGY RBC 3.72 M/CMM 4.70 - 6.10 11/13/2011 [facility] HEMATOLOGY WBC 13.5 K/CMM 3.7 - 10.4 11/13/2011 [facility] HEMATOLOGY MCV 87.8 fL 80.0 - 94.0 11/13/2011 Normal [facility] HEMATOLOGY Hct 32.7 % 42.0 - 54.0 11/13/2011 [facility] HEMATOLOGY Basophils # 0.1 K/CMM 0.0 - 0.2 11/13/2011 Normal [facility] HEMATOLOGY Eosinophils # 0.2 K/CMM 0.0 - 0.5 11/13/2011 Normal [facility] HEMATOLOGY Monocytes # 0.7 K/CMM 0.0 - 0.8 11/13/2011 Normal [facility] HEMATOLOGY Lymphocytes # 1.5 K/CMM 1.0 - 5.5 11/13/2011 [facility] HEMATOLOGY Segs-Bands # 11.0 K/CMM 1.5 - 8.1 11/13/2011 [facility] HEMATOLOGY Basophils 0.4 % 0.0 - 1.0 11/13/2011 Normal [facility] HEMATOLOGY Monocytes 5.6 % 2.0 - 12.0 11/13/2011 [facility] HEMATOLOGY Lymphocytes 11.1 % 20.0 - 40.0 11/13/2011 [facility] HEMATOLOGY Eosinophils 1.4 % 0.0 - 4.0 11/13/2011 Normal [facility] HEMATOLOGY Segs 81.5 % 45.0 - 75.0 11/13/2011 [facility] BEDSIDE GLUCOSE TESTING Gluc POC Lifscn 193 mg/dL 65 - 110 09/03/2011 [place] 4Interpretive Data: Upper Reportable Limit: 200 mg/dL. [facility] BEDSIDE GLUCOSE TESTING Comment1 Assess patient 09/03/2011 [facility] BEDSIDE GLUCOSE TESTING Comment2 Notify RN/MD 09/03/2011 [facility] BEDSIDE GLUCOSE TESTING Gluc POC Lifscn 166 mg/dL 65 - 110 09/03/2011 [place] 5Interpretive Data: Upper Reportable Limit: 200 mg/dL. [facility] BEDSIDE GLUCOSE TESTING Comment1 Notify NA/ 09/03/2011 NA [facility] BEDSIDE GLUCOSE TESTING Gluc POC Lifscn 166 mg/dL 65 - 110 09/03/2011 [place] 6Interpretive Data: Upper Reportable Limit: 200 mg/dL. [facility] BEDSIDE GLUCOSE TESTING Comment1 Notify AN/ 09/02/2011 NA [facility] CHEMISTRY Calcium Lvl 8.8 mg/dL 8.5 - 10.5 09/02/2011 Normal [facility] CHEMISTRY Chloride Lvl 105 meq/L 95 - 109 09/02/2011 Normal [facility] CHEMISTRY Creatinine Lvl 1.3 mg/dL 0.5 - 1.4 09/02/2011 Normal [facility] CHEMISTRY CO2 25 meq/L 24 - 32 09/02/2011 Normal [facility] CHEMISTRY Potassium Lvl 3.6 meq/L 3.5 - 5.1 09/02/2011 Normal [facility] CHEMISTRY Sodium Lvl 141 meq/L 135 - 145 09/02/2011 Normal [facility] CHEMISTRY BUN 15 mg/dL 7 - 22 09/02/2011 Normal [facility] CHEMISTRY Glucose Lvl 163 mg/dL 09/02/2011 NA 7Interpretive Data: Reference Ranges : 0 - 7 days : 41 - 90 mg/dL7 days - 150 yrs : 70 - 99 mg/dL (fasting), based on the clinical recommendations of the [place] [employer]. [facility] CHEMISTRY AGAP 14.6 meq/L 10.0 - 20.0 09/02/2011 Normal [facility] HEMATOLOGY Basophils # 0.1 K/CMM 0.0 - 0.2 09/02/2011 Normal [facility] HEMATOLOGY Eosinophils # 0.1 K/CMM 0.0 - 0.5 09/02/2011 Normal [facility] HEMATOLOGY Monocytes # 0.9 K/CMM 0.0 - 0.8 09/02/2011 HI [facility] HEMATOLOGY Lymphocytes # 2.0 K/CMM 1.0 - 5.5 09/02/2011 Normal [facility] HEMATOLOGY Segs-Bands # 8.7 K/CMM 1.5 - 8.1 09/02/2011 HI [facility] HEMATOLOGY Basophils 0.8 % 0.0 - 1.0 09/02/2011 Normal [facility] HEMATOLOGY Segs 73.1 % 45.0 - 75.0 09/02/2011 Normal [facility] HEMATOLOGY Lymphocytes 17.0 % 20.0 - 40.0 09/02/2011 LOW [facility] HEMATOLOGY Eosinophils 1.2 % 0.0 - 4.0 09/02/2011 Normal [facility] HEMATOLOGY Monocytes 7.9 % 2.0 - 12.0 09/02/2011 Normal [facility] HEMATOLOGY Platelet 178 K/CMM 133 - 450 09/02/2011 Normal [facility] HEMATOLOGY MCV 91.9 fL 80.0 - 94.0 09/02/2011 Normal [facility] HEMATOLOGY MCH 31.8 pg 27.0 - 31.0 09/02/2011 [place] [facility] HEMATOLOGY MCHC 34.6 g/dL 32.0 - 36.0 09/02/2011 Normal [facility] HEMATOLOGY Hct 32.1 % 42.0 - 54.0 09/02/2011 LOW [facility] HEMATOLOGY MPV 10.2 fL 7.4 - 10.4 09/02/2011 Normal [facility] HEMATOLOGY RDW 13.4 % 11.5 - 14.5 09/02/2011 Normal [facility] HEMATOLOGY Hgb 11.1 g/dL 14.0 - 18.0 09/02/2011 LOW [facility] HEMATOLOGY RBC 3.49 M/CMM 4.70 - 6.10 09/02/2011 LOW [facility] HEMATOLOGY WBC 11.9 K/CMM 3.7 - 10.4 09/02/2011 [facility] CHEMISTRY Uric Acid 6.3 mg/dL 3.8 - 8.0 09/01/2011 Normal [facility] HEMATOLOGY Sed Rate 63 mm/h 0 - 15 09/01/2011 [facility] IMMUNOLOGY CRP, High Sensitivity 107.0 mg/L 09/01/2011 NA 10Interpretive Data: Low Risk: <1.0 mg/LAverage Risk: 1.0 - 3.0 mg/LHigh Risk: >3.0 mg/LInflammation: >10.0 mg/L [facility] CHEMISTRY Sodium Lvl 138 meq/L 135 - 145 09/01/2011 Normal [facility] CHEMISTRY Potassium Lvl 4.1 meq/L 3.5 - 5.1 09/01/2011 Normal [facility] CHEMISTRY CO2 24 meq/L 24 - 32 09/01/2011 Normal [facility] CHEMISTRY Chloride Lvl 102 meq/L 95 - 109 09/01/2011 Normal [facility] CHEMISTRY Calcium Lvl 9.2 mg/dL 8.5 - 10.5 09/01/2011 Normal [facility] CHEMISTRY Glucose Lvl 194 mg/dL 09/01/2011 NA 8Interpretive Data: Reference Ranges : 0 - 7 days : 41 - 90 mg/dL7 days - 150 yrs : 70 - 99 mg/dL (fasting), based on the clinical recommendations of the [employer]. [facility] CHEMISTRY Creatinine Lvl 1.2 mg/dL 0.5 - 1.4 09/01/2011 Normal [facility] CHEMISTRY BUN 11 mg/dL 7 - 22 09/01/2011 Normal [facility] CHEMISTRY AGAP 16.1 meq/L 10.0 - 20.0 09/01/2011 Normal [facility] HEMATOLOGY MPV 10.4 fL 7.4 - 10.4 09/01/2011 Normal [facility] HEMATOLOGY Hct 36.2 % 42.0 - 54.0 09/01/2011 LOW [facility] HEMATOLOGY RBC 3.90 M/CMM 4.70 - 6.10 09/01/2011 LOW [facility] HEMATOLOGY Hgb 12.4 g/dL 14.0 - 18.0 09/01/2011 LOW [facility] HEMATOLOGY WBC 11.2 K/CMM 3.7 - 10.4 09/01/2011 HI [facility] HEMATOLOGY Platelet 187 K/CMM 133 - 450 09/01/2011 Normal [facility] HEMATOLOGY MCHC 34.3 g/dL 32.0 - 36.0 09/01/2011 Normal [facility] HEMATOLOGY RDW 13.6 % 11.5 - 14.5 09/01/2011 Normal [facility] HEMATOLOGY MCH 31.9 pg 27.0 - 31.0 09/01/2011 [facility] HEMATOLOGY MCV 92.8 fL 80.0 - 94.0 09/01/2011 Normal [facility] HEMATOLOGY Monocytes # 0.9 K/CMM 0.0 - 0.8 09/01/2011 [facility] HEMATOLOGY Lymphocytes # 2.1 K/CMM 1.0 - 5.5 09/01/2011 Normal [facility] HEMATOLOGY Segs-Bands # 8.0 K/CMM 1.5 - 8.1 09/01/2011 Normal [facility] HEMATOLOGY Eosinophils 1.1 % 0.0 - 4.0 09/01/2011 Normal [facility] HEMATOLOGY Basophils # 0.0 K/CMM 0.0 - 0.2 09/01/2011 Normal [facility] HEMATOLOGY Eosinophils # 0.1 K/CMM 0.0 - 0.5 09/01/2011 Normal [facility] HEMATOLOGY Monocytes 8.4 % 2.0 - 12.0 09/01/2011 Normal [facility] HEMATOLOGY Lymphocytes 18.6 % 20.0 - 40.0 09/01/2011 LOW [facility] HEMATOLOGY Basophils 0.3 % 0.0 - 1.0 09/01/2011 Normal [facility] HEMATOLOGY Segs 71.6 % 45.0 - 75.0 09/01/2011 Normal [facility] Microbiology Culture: Blood 08/31/2011 [facility] Microbiology Culture: Blood 08/31/2011 [facility] BODY FLUIDS Crystal BF Negative (08/31/2011 14:34:00) Negative 08/31/2011 Normal [facility] BODY FLUIDS Crystal BF Type Synovial (08/31/2011 14:34:00) 08/31/2011 Normal [facility] BODY FLUIDS Supernat BF Colorless (08/31/2011 14:34:00) Colorless 08/31/2011 Normal [facility] BODY FLUIDS Color BF Yellow (08/31/2011 14:34:00) Colorless 08/31/2011 Normal [facility] BODY FLUIDS Clarity BF Moderate Cloudy *ABN* (08/31/2011 14:34:00) Clear 08/31/2011 ABN [facility] FLUIDS RBC BF 800 /mm3 08/31/2011 NA 1Interpretive Data: No established reference ranges. [facility] [place] [address] /mm3 08/31/2011 NA 2Interpretive Data: No established reference ranges. [facility] BODY FLUIDS Segs BF 93 % 08/31/2011 NA 3Interpretive Data: No established reference ranges. [facility] BODY FLUIDS Lymph BF 2 % 08/31/2011 NA [facility] FLUIDS Macrophage BF 5 % 08/31/2011 NA [facility] FLUIDS CellCnt BF Type Synovial (08/31/2011 14:34:00) 08/31/2011 Normal [facility] Microbiology Culture: Aspirate/Body Fluid/Tissue 08/31/2011 [facility] CHEMISTRY AGAP 14.5 meq/L 10.0 - 20.0 08/31/2011 Normal [facility] CHEMISTRY B/C Ratio 11 6 - 25 08/31/2011 Normal [facility] CHEMISTRY A/G Ratio 0.8 0.7 - 1.6 08/31/2011 Normal [facility] CHEMISTRY Globulin 4.0 g/dL 2.0 - 4.0 08/31/2011 Normal [facility] CHEMISTRY Bili Total 0.4 mg/dL 0.2 - 1.3 08/31/2011 Normal [facility] CHEMISTRY AST 9 U/L 0 - 37 08/31/2011 Normal [facility] CHEMISTRY ALT 16 U/L 0 - 65 08/31/2011 Normal [facility] CHEMISTRY Total Protein 7.3 g/dL 6.4 - 8.4 08/31/2011 Normal [facility] CHEMISTRY Albumin Lvl 3.3 g/dL 3.5 - 5.0 08/31/2011 LOW [facility] CHEMISTRY Calcium Lvl 9.3 mg/dL 8.5 - 10.5 08/31/2011 Normal [facility] CHEMISTRY CO2 24 meq/L 24 - 32 08/31/2011 Normal [facility] CHEMISTRY Potassium Lvl 4.5 meq/L 3.5 - 5.1 08/31/2011 Normal [facility] CHEMISTRY Chloride Lvl 105 meq/L 95 - 109 08/31/2011 Normal [facility] CHEMISTRY Alk Phos 79 U/L 39 - 136 08/31/2011 Normal [facility] CHEMISTRY Sodium Lvl 139 meq/L 135 - 145 08/31/2011 Normal [facility] CHEMISTRY BUN 15 mg/dL 7 - 22 08/31/2011 Normal [facility] CHEMISTRY Creatinine Lvl 1.4 mg/dL 0.5 - 1.4 08/31/2011 Normal [facility] CHEMISTRY Glucose Lvl 261 mg/dL 08/31/2011 NA 9Interpretive Data: Reference Ranges : 0 - 7 days : 41 - 90 mg/dL7 days - 150 yrs : 70 - 99 mg/dL (fasting), based on the clinical recommendations of the [employer]. [facility] HEMATOLOGY Sed Rate 48 mm/h 0 - 15 08/31/2011 [facility] HEMATOLOGY WBC 13.4 K/CMM 3.7 - 10.4 08/31/2011 [facility] HEMATOLOGY Hgb 12.4 g/dL 14.0 - 18.0 08/31/2011 LOW [facility] HEMATOLOGY RBC 3.87 M/CMM 4.70 - 6.10 08/31/2011 LOW [facility] HEMATOLOGY Hct 35.7 % 42.0 - 54.0 08/31/2011 LOW [facility] HEMATOLOGY Platelet 191 K/CMM 133 - 450 08/31/2011 Normal [facility] HEMATOLOGY RDW 13.8 % 11.5 - 14.5 08/31/2011 Normal [facility] HEMATOLOGY MPV 10.3 fL 7.4 - 10.4 08/31/2011 Normal [facility] HEMATOLOGY MCV 92.1 fL 80.0 - 94.0 08/31/2011 Normal [facility] HEMATOLOGY MCHC 34.7 g/dL 32.0 - 36.0 08/31/2011 Normal [facility] HEMATOLOGY MCH 32.0 pg 27.0 - 31.0 08/31/2011 HI [facility] HEMATOLOGY Monocytes # 0.7 K/CMM 0.0 - 0.8 08/31/2011 Normal [facility] HEMATOLOGY Eosinophils # 0.1 K/CMM 0.0 - 0.5 08/31/2011 Normal [facility] HEMATOLOGY Lymphocytes # 1.2 K/CMM 1.0 - 5.5 08/31/2011 Normal [facility] HEMATOLOGY Polychrom Slight (08/31/2011 12:45:00) None Seen 08/31/2011 Normal [facility] HEMATOLOGY Large Plt Slight *ABN* (08/31/2011 12:45:00) None Seen 08/31/2011 ABN [facility] HEMATOLOGY Basophils # 0.0 K/CMM 0.0 - 0.2 08/31/2011 Normal [facility] HEMATOLOGY Hypochrom Slight (08/31/2011 12:45:00) None Seen 08/31/2011 Normal [facility] HEMATOLOGY Eosinophils 0.6 % 0.0 - 4.0 08/31/2011 Normal [facility] HEMATOLOGY Basophils 0.2 % 0.0 - 1.0 08/31/2011 Normal [facility] HEMATOLOGY Segs-Bands # 11.3 K/CMM 1.5 - 8.1 08/31/2011 HI [facility] HEMATOLOGY Lymphocytes 9.3 % 20.0 - 40.0 08/31/2011 LOW [facility] HEMATOLOGY Monocytes 5.0 % 2.0 - 12.0 08/31/2011 Normal [facility] HEMATOLOGY Segs 84.9 % 45.0 - 75.0 08/31/2011 [facility] Vital Signs Vital Sign Value Date Comments Source Heart Rate 80 04/22/2016 [facility] Respitory Rate 19 04/22/2016 [facility] Systolic (mm Hg) 135 04/22/2016 [facility] Diastolic (mm Hg) 74 04/22/2016 [facility] Temperature Oral (F) 98 F 04/22/2016 [facility] Respitory Rate 18 04/22/2016 [facility] Heart Rate 82 04/22/2016 [facility] Systolic (mm Hg) 133 04/22/2016 [facility] Diastolic (mm Hg) 75 04/22/2016 [facility] Respitory Rate 18 04/22/2016 [facility] Heart Rate 86 04/22/2016 [facility] Systolic (mm Hg) 130 04/22/2016 [facility] Diastolic (mm Hg) 70 04/22/2016 [facility] Temperature Oral (F) 98 F 04/22/2016 [facility] Temperature Oral (F) 97.7 F 04/22/2016 [facility] Height 180.34 cm 04/22/2016 [facility] Weight 79.545 04/22/2016 [facility] BMI Calculated 24.46 04/22/2016 [facility] Temperature Oral (F) 98.1 F 05/26/2015 [facility] Systolic (mm Hg) 118 05/26/2015 [facility] Diastolic (mm Hg) 65 05/26/2015 [facility] Respitory Rate 20 05/26/2015 [facility] Heart Rate 80 05/26/2015 [facility] Respitory Rate 18 05/26/2015 [facility] Heart Rate 76 05/26/2015 [facility] Systolic (mm Hg) 134 05/26/2015 [facility] Diastolic (mm Hg) 73 05/26/2015 [facility] Temperature Oral (F) 97.8 F 05/26/2015 [facility] Temperature Oral (F) 98.2 F 05/26/2015 [facility] Respitory Rate 18 05/26/2015 [facility] Heart Rate 70 05/26/2015 [facility] Systolic (mm Hg) 124 05/26/2015 [facility] Diastolic (mm Hg) 76 05/26/2015 [facility] Weight 72.727 05/25/2015 [facility] Height 172.72 cm 05/25/2015 [facility] BMI Calculated 24.38 05/25/2015 [facility] Temperature Oral (F) 97.7 F 11/15/2011 [facility] Heart Rate 80 11/15/2011 [facility] Respitory Rate 18 11/15/2011 [facility] Diastolic (mm Hg) 83 11/15/2011 [facility] Systolic (mm Hg) 128 11/15/2011 [facility] Systolic (mm Hg) 128 11/15/2011 [facility] Diastolic (mm Hg) 70 11/15/2011 [facility] Heart Rate 71 11/15/2011 [facility] Respitory Rate 18 11/15/2011 [facility] Temperature Oral (F) 98.1 F 11/15/2011 [facility] Respitory Rate 18 11/15/2011 [facility] Heart Rate 73 11/15/2011 [facility] Temperature Oral (F) 97.8 F 11/15/2011 [facility] Systolic (mm Hg) 119 11/15/2011 [facility] Diastolic (mm Hg) 71 11/15/2011 [facility] Height 175.26 cm 11/13/2011 [facility] Weight 72.727 11/13/2011 [facility] Temperature Oral (F) 98.1 F 09/03/2011 [facility] Respitory Rate 16 09/03/2011 [facility] Heart Rate 70 09/03/2011 [facility] Systolic (mm Hg) 108 09/03/2011 [facility] Diastolic (mm Hg) 61 09/03/2011 [facility] Heart Rate 79 09/03/2011 [facility] Temperature Oral (F) 98.0 F 09/03/2011 [facility] Respitory Rate 17 09/03/2011 [facility] Diastolic (mm Hg) 60 09/03/2011 [facility] Systolic (mm Hg) 159 09/03/2011 [facility] Diastolic (mm Hg) 81 09/03/2011 [facility] Systolic (mm Hg) 147 09/03/2011 [facility] Respitory Rate 16 09/03/2011 [facility] Heart Rate 75 09/03/2011 [facility] Temperature Oral (F) 98.2 F 09/03/2011 [facility] Weight 70.710 09/01/2011 [facility] Height 175.26 cm 09/01/2011 [facility] Weight 72.727 08/31/2011 [facility] Height 175.26 cm 08/31/2011 [facility] Encounters Location Location Details Encounter Type Encounter Number Reason For Visit Attending Provider ADM Date DC Date Status Source [facility] Inpatient [id number] [facility] 09/01/2011 09/03/2011 Active [facility] Inpatient [id number] SHORT OF BREATH CECI BRANDI 11/13/2011 11/15/2011 Active [facility] OBS Observation Patient [id number] Donn Dharmesh 05/25/2015 05/26/2015 [facility] Emergency [id number] Lliian Damon 04/22/2016 04/22/2016 [facility] Procedures Procedure Code Date Perfomer Comments Source Amputation<sup>1</sup> [id number] toe [facility] Cardiac pacemaker procedure<sup>2</sup> [id number] 5 years ago [facility] Stent placement [id number] [facility]
--- OUTSIDE RECORDS SUMMARY | 2018-07-17 12:49 | XMS REPORT | Summary of Care ---
Author Author [facility] Organization [facility] Address Unknown Phone Unavailable Encounter [employer]([place]) [id number] Date(s): 05/25/15 - 05/26/15 [facility] [address] [place] [address]- Discharge Disposition: Home Attending Physician: Donn Barroso DO Admitting Physician: Donn Barroso DO Vital Signs 1 2 3 Most recent to oldest [Reference Range]: 172.72 cm (05/25/15 3:32 PM) Height 1 2 3 Most recent to oldest [Reference Range]: 98.1 DegF (05/26/15 12:08 PM) 97.8 DegF (05/26/15 8:00 AM) 98.2 DegF (05/26/15 4:00 AM) Temperature Oral [96.4-99.1 DegF] 1 2 3 Most recent to oldest [Reference Range]: 118/65 mmHg (05/26/15 12:08 PM) 134/73 mmHg (05/26/15 8:00 AM) 124/76 mmHg (05/26/15 4:00 AM) Blood Pressure [90-140/60-90 mmHg] 1 2 3 Most recent to oldest [Reference Range]: 20 BRMIN (05/26/15 12:08 PM) 18 BRMIN (05/26/15 8:00 AM) 18 BRMIN (05/26/15 4:00 AM) Respiratory Rate [14-20 BRMIN] 1 2 3 Most recent to oldest [Reference Range]: 80 bpm (05/26/15 12:08 PM) 76 bpm (05/26/15 8:00 AM) 70 bpm (05/26/15 4:00 AM) Peripheral Pulse Rate [60-100 bpm] 1 2 3 Most recent to oldest [Reference Range]: 72.727 kg (05/25/15 3:32 PM) Weight 1 2 3 Most recent to oldest [Reference Range]: 24.38 m2 (05/25/15 3:32 PM) Body Mass Index Problem List Condition Effective Dates Status Health Status Informant Acid Active reflux(Confirmed) Acid Resolved reflux(Confirmed) AF - Atrial Active fibrillation(Confirm ed) Arthritis(Confirmed) Active Cardiac Active pacemaker(Confirmed) CHF - Congestive Active heart failure(Confirmed) Diabetes(Confirmed) Resolved DM - Diabetes Active mellitus(Confirmed) Enlarged Active prostate(Confirmed) FH: Active Hypercholesterolemia (Confirmed) Gout(Confirmed) Resolved HTN Resolved (hypertension)(Confi rmed) HTN - Active Hypertension(Confirm ed) Peripheral Active neuropathy(Confirmed ) Allergies, Adverse Reactions, Alerts Substance Reaction Severity Status NKDA Active Medications allopurinol 100 mg, 1 tab, Route: PO, Drug form: TAB, Daily, Dosing Weight 72.727, kg, Start date: 05/27/15 9:00:00, Duration: 30 day, Stop date: 06/25/15 9:00:00 Notes: (Same as: Zyloprim) Start Date: 05/27/15 Stop Date: 05/26/15 Status: Canceled allopurinol 100 mg oral tablet 100 mg=1 tab, PO, Daily, # 90 tab, 1 Refill(s) Start Date: 05/25/15 Status: Ordered aspirin 325 mg, 1 tab, Route: PO, Drug form: TAB, ONCE, Dosing Weight 72.727, kg, Priori ty: STAT, Start date: 05/25/15 15:40:00, Stop date: 05/25/15 15:40:00 Notes: Take with food. Start Date: 05/25/15 Stop Date: 05/25/15 Status: Completed aspirin 325 mg tablet 325 mg, 1 tab, Route: PO, Drug form: TAB, Daily, Dosing Weight 72.727, kg, Start date: 05/26/15 14:00:00, Duration: 30 day, Stop date: 06/24/15 14:00:00 Notes: Take with food. Start Date: 05/26/15 Stop Date: 05/26/15 Status: Discontinued aspirin 81 mg tablet, enteric coated 81 mg=1 tab, PO, Daily, # 100 tab, 0 Refill(s) Start Date: 05/26/15 Status: Ordered atropine 0.5 mg, 5 mL, Route: IVP, Drug form: INJ, PRN, PRN Bradycardia, Start date: 05/11 01/22 20:48:00, Duration: 30 day, Stop date: 06/24/15 20:47:00 Start Date: 05/25/15 Stop Date: 05/26/15 Status: Discontinued captopril 12.5 mg, 1 tab, Route: PO, Drug form: TAB, TID, Dosing Weight 72.727, kg, Start date: 05/26/15 13:00:00, Duration: 30 day, Stop date: 06/25/15 9:00:00 Notes: Give on empty stomach. 1 hour before meal. (Same As: Capoten) Start Date: 05/26/15 Stop Date: 05/26/15 Status: Discontinued clopidogrel 75 mg, 1 tab, Route: PO, Drug form: TAB, Daily, Dosing Weight 72.727, kg, Start date: 05/27/15 9:00:00, Duration: 30 day, Stop date: 06/25/15 9:00:00 Notes: (Same As: Plavix) Start Date: 05/27/15 Stop Date: 05/26/15 Status: Canceled clopidogrel 75 mg oral tablet 75 mg=1 tab, PO, Daily, # 30 tab, 0 Refill(s) Start Date: 05/25/15 Status: Ordered Dextrose 50% Syringe 12.5 gm, 25 mL, Route: IVP, Drug Form: INJ, Dosing Weight 72.727, kg, PRN, PRN B lood Glucose Results, Start date: 05/25/15 22:41:00, Duration: 30 day, Stop date : 06/24/15 22:40:00 Start Date: 05/25/15 Stop Date: 05/26/15 Status: Discontinued Dextrose 50% Syringe 25 gm, 50 mL, Route: IVP, Drug Form: INJ, Dosing Weight 72.727, kg, PRN, PRN Blo od Glucose Results, Start date: 05/25/15 22:41:00, Duration: 30 day, Stop date: 06/24/15 22:40:00 Start Date: 05/25/15 Stop Date: 05/26/15 Status: Discontinued furosemide 40 mg oral tablet 40 mg, 1 tab, Route: PO, Drug form: TAB, BID, Dosing Weight 72.727, kg, Start da te: 05/26/15 17:00:00, Duration: 30 day, Stop date: 06/25/15 9:00:00 Notes: (Same as: Lasix) May cause GI upset. Give with food or milk. Start Date: 05/26/15 Stop Date: 05/26/15 Status: Canceled furosemide 40 mg oral tablet 40 mg=1 tab, PO, BID, # 30 tab, 0 Refill(s) Start Date: 05/25/15 Status: Ordered gabapentin 600 mg oral tablet 600 mg, 1 tab, Route: PO, Drug form: TAB, BID, Dosing Weight 72.727, kg, Start d ate: 05/26/15 17:00:00, Duration: 30 day, Stop date: 06/25/15 9:00:00 Start Date: 05/26/15 Stop Date: 05/26/15 Status: Deleted gabapentin 600 mg oral tablet 600 mg, 2 cap, Route: PO, Drug form: CAP, Bedtime, Dosing Weight 72.727, kg, Sta rt date: 05/26/15 1:40:00, Duration: 30 day, Stop date: 06/24/15 21:00:00 Notes: (Same as: Neurontin) Start Date: 05/26/15 Stop Date: 05/26/15 Status: Discontinued gabapentin 600 mg oral tablet 600 mg, 2 cap, Route: PO, Drug form: CAP, BID, Dosing Weight 72.727, kg, Start d ate: 05/26/15 9:00:00, Duration: 30 day, Stop date: 06/24/15 17:00:00 Notes: (Same as: Neurontin) Start Date: 05/26/15 Stop Date: 05/26/15 Status: Discontinued glucagon 1 mg, Route: IM, Drug form: PDR/INJ, PRN, Dosing Weight 72.727, kg, PRN Blood Gl ucose Results, Start date: 05/25/15 22:41:00, Duration: 30 day, Stop date: 06/24 22:40:00 Start Date: 05/25/15 Stop Date: 05/26/15 Status: Discontinued insulin aspart 4 unit, 0.04 mL, Route: SUB-Q, Drug form: SOLN, TID-Before Meals, Dosing Weight 72.727, kg, PRN Blood Glucose Results, Start date: 05/25/15 22:41:00, Duration: 30 day, Stop date: 06/24/15 22:40:00 Notes: Roll in palms of hands gently; Do not shake vigorously. (Same as: NovoLO G)"single patient use only" Stable for 28 days at room temperature.Expires in _ ____ days from Date Start Date: 05/25/15 Stop Date: 05/26/15 Status: Discontinued insulin aspart 5 unit, 0.05 mL, Route: SUB-Q, Drug form: SOLN, TID-Before Meals, Dosing Weight 72.727, kg, PRN Blood Glucose Results, Start date: 05/25/15 22:41:00, Duration: 30 day, Stop date: 06/24/15 22:40:00 Notes: Roll in palms of hands gently; Do not shake vigorously. (Same as: NovoLO G)"single patient use only" Stable for 28 days at room temperature.Expires in _ ____ days from Date Start Date: 05/25/15 Stop Date: 05/26/15 Status: Discontinued insulin aspart 1 unit, 0.01 mL, Route: SUB-Q, Drug form: SOLN, TID-Before Meals, Dosing Weight 72.727, kg, PRN Blood Glucose Results, Start date: 05/25/15 22:41:00, Duration: 30 day, Stop date: 06/24/15 22:40:00 Notes: Roll in palms of hands gently; Do not shake vigorously. (Same as: NovoLO G)"single patient use only" Stable for 28 days at room temperature.Expires in _ ____ days from Date Start Date: 05/25/15 Stop Date: 05/26/15 Status: Discontinued insulin aspart 2 unit, 0.02 mL, Route: SUB-Q, Drug form: SOLN, TID-Before Meals, Dosing Weight 72.727, kg, PRN Blood Glucose Results, Start date: 05/25/15 22:41:00, Duration: 30 day, Stop date: 06/24/15 22:40:00 Notes: Roll in palms of hands gently; Do not shake vigorously. (Same as: NovoLO G)"single patient use only" Stable for 28 days at room temperature.Expires in _ ____ days from Date Start Date: 05/25/15 Stop Date: 05/26/15 Status: Discontinued insulin aspart 3 unit, 0.03 mL, Route: SUB-Q, Drug form: SOLN, TID-Before Meals, Dosing Weight 72.727, kg, PRN Blood Glucose Results, Start date: 05/25/15 22:41:00, Duration: 30 day, Stop date: 06/24/15 22:40:00 Notes: Roll in palms of hands gently; Do not shake vigorously. (Same as: NovoLO G)"single patient use only" Stable for 28 days at room temperature.Expires in _ ____ days from Date Start Date: 05/25/15 Stop Date: 05/26/15 Status: Discontinued insulin aspart 1 unit, 0.01 mL, Route: SUB-Q, Drug form: SOLN, Bedtime, Dosing Weight 72.727, k g, PRN Blood Glucose Results, Start date: 05/25/15 22:41:00, Duration: 30 day, S top date: 06/24/15 22:40:00 Notes: Roll in palms of hands gently; Do not shake vigorously. (Same as: NovoLO G)"single patient use only" Stable for 28 days at room temperature.Expires in _ ____ days from Date Start Date: 05/25/15 Stop Date: 05/26/15 Status: Discontinued insulin aspart 2 unit, 0.02 mL, Route: SUB-Q, Drug form: SOLN, Bedtime, Dosing Weight 72.727, k g, PRN Blood Glucose Results, Start date: 05/25/15 22:41:00, Duration: 30 day, S top date: 06/24/15 22:40:00 Notes: Roll in palms of hands gently; Do not shake vigorously. (Same as: NovoLO G)"single patient use only" Stable for 28 days at room temperature.Expires in _ ____ days from Date Start Date: 05/25/15 Stop Date: 05/26/15 Status: Discontinued insulin aspart 3 unit, 0.03 mL, Route: SUB-Q, Drug form: SOLN, Bedtime, Dosing Weight 72.727, k g, PRN Blood Glucose Results, Start date: 05/25/15 22:41:00, Duration: 30 day, S top date: 06/24/15 22:40:00 Notes: Roll in palms of hands gently; Do not shake vigorously. (Same as: NovoLO G)"single patient use only" Stable for 28 days at room temperature.Expires in _ ____ days from Date Start Date: 05/25/15 Stop Date: 05/26/15 Status: Discontinued insulin aspart 4 unit, 0.04 mL, Route: SUB-Q, Drug form: SOLN, Bedtime, Dosing Weight 72.727, k g, PRN Blood Glucose Results, Start date: 05/25/15 22:41:00, Duration: 30 day, S top date: 06/24/15 22:40:00 Notes: Roll in palms of hands gently; Do not shake vigorously. (Same as: NovoLO G)"single patient use only" Stable for 28 days at room temperature.Expires in _ ____ days from Date Start Date: 05/25/15 Stop Date: 05/26/15 Status: Discontinued Lantus 40 units, SUB-Q, Bedtime, 0 Refill(s) Start Date: 05/25/15 Status: Ordered Lantus Route: SUB-Q, Bedtime, Dosing Weight 72.727, kg, Start date: 05/26/15 21:00:00, Duration: 30 day, Stop date: 06/24/15 21:00:00 Start Date: 05/26/15 Stop Date: 05/26/15 Status: Deleted Lasix 20 mg, 2 mL, Route: IVP, Drug form: INJ, ONCE, Dosing Weight 72.727, kg, Priorit y: STAT, Start date: 05/25/15 17:16:00, Stop date: 05/25/15 17:16:00 Notes: (Same as: Lasix) Start Date: 05/25/15 Stop Date: 05/25/15 Status: Completed Levemir FlexPen 40 unit, 0.4 mL, Route: SUB-Q, Drug form: INJ, Bedtime, Start date: 05/26/15 21: 00:00, Duration: 30 day, Stop date: 06/24/15 21:00:00 Notes: Same as LevemirDo not hold insulin without contacting prescriber "single patient use only" Start Date: 05/26/15 Stop Date: 05/26/15 Status: Canceled Medrol Dosepak 4 mg oral tablet See Instructions, PO, Take by mouth as directed on label., X 6 day, # 1 Pack, 0 Refill(s) Special Instructions: Take by mouth as directed on label. Start Date: 05/26/15 Stop Date: 06/01/15 Status: Ordered nitroglycerin 0.4 mg sublingual tablet 0.4 mg, 1 tab, Route: SL, Drug form: TAB, Q5Min, PRN Chest Pain, Start date: 20:48:00, Duration: 30 day, Stop date: 06/24/15 20:47:00 Notes: (Same as:NitroquickColeentat)"Do Not Crush" Sublingual tablet Start Date: 05/25/15 Stop Date: 05/26/15 Status: Discontinued nitroglycerin SL Tab 0.4 mg, 1 tab, Route: SL, Drug form: TAB, Q5Min, Dosing Weight 72.727, kg, PRN C hest Pain, Start date: 05/25/15 18:56:00, Duration: 3 doses or times, Stop date: Limited # of times Notes: (Same as:Nitroquick, Nitrostat)"Do Not Crush" Sublingual tablet Start Date: 05/25/15 Stop Date: 05/25/15 Status: Deleted omeprazole 20 mg, Route: PO, Drug form: DRC, Daily, Dosing Weight 72.727, kg, Start date: 0 05/27/15 9:00:00, Duration: 30 day, Stop date: 06/25/15 9:00:00 Start Date: 05/27/15 Stop Date: 05/26/15 Status: Deleted Protonix 40 mg, 1 tab, Route: PO, Drug form: ECTAB, Before Dinner, Start date: 05/26/15 1 6:30:00, Duration: 30 day, Stop date: 06/24/15 16:30:00 Notes: Tablet should not be chewed or crushed.(Same as: Protonix) Start Date: 05/26/15 Stop Date: 05/26/15 Status: Discontinued Saline Flush 0.9% 10 ml, Route: IVP, Drug Form: INJ, Dosing Weight 72.727, kg, Q12H, Start date: 0 05/25/15 21:00:00, Duration: 30 day, Stop date: 06/24/15 9:00:00 Notes: (Same as: BD Posiflush) Start Date: 05/25/15 Stop Date: 05/26/15 Status: Discontinued Saline Flush 0.9% 10 ml, Route: IVP, Drug Form: INJ, Dosing Weight 72.727, kg, PRN, PRN Line Flush , Start date: 05/25/15 18:56:00, Duration: 30 day, Stop date: 06/24/15 18:55:00 Notes: (Same as: BD Posiflush) Start Date: 05/25/15 Stop Date: 05/26/15 Status: Discontinued Solu-MEDROL 40 mg, 1 mL, Route: IVP, Drug form: INJ, ONCE, Dosing Weight 72.727, kg, Priorit y: NOW, Start date: 05/26/15 14:11:00, Stop date: 05/26/15 14:11:00 Notes: (Same as:Solu-MEDROL, A-Methapred) Start Date: 05/26/15 Stop Date: 05/26/15 Status: Completed spironolactone 25 mg, 1 tab, Route: PO, Drug form: TAB, Daily, Dosing Weight 72.727, kg, Start date: 05/27/15 9:00:00, Duration: 30 day, Stop date: 06/25/15 9:00:00 Notes: (Same As: Aldactone) Start Date: 05/27/15 Stop Date: 05/26/15 Status: Canceled spironolactone 25 mg oral tablet 25 mg=1 tab, PO, Daily, # 90 tab, 1 Refill(s) Start Date: 05/25/15 Stop Date: 08/23/15 Status: Ordered trazodone 100 mg oral tablet 100 mg, 1 tab, Route: PO, Drug form: TAB, Bedtime, Dosing Weight 72.727, kg, Sta rt date: 05/26/15 21:00:00, Duration: 30 day, Stop date: 06/24/15 21:00:00 Start Date: 05/26/15 Stop Date: 05/26/15 Status: Deleted trazodone 100 mg oral tablet 100 mg, 1 tab, Route: PO, Drug form: TAB, Bedtime, Dosing Weight 72.727, kg, Sta rt date: 05/26/15 1:40:00, Duration: 30 day, Stop date: 06/24/15 21:00:00 Notes: (Same As: Desyrel) Start Date: 05/26/15 Stop Date: 05/26/15 Status: Discontinued Results ELECTROLYTES 1 2 3 Most recent to oldest [Reference Range]: 135 mEq/L (05/25/15 3:51 PM) Sodium Lvl [135-145 mEq/L] 3.8 mEq/L (05/25/15 3:51 PM) Potassium Lvl [3.5-5.1 mEq/L] 101 mEq/L (05/25/15 3:51 PM) Chloride Lvl [95-109 mEq/L] 28 mEq/L (05/25/15 3:51 PM) CO2 [24-32 mEq/L] 9.8 mEq/L *LOW* (05/25/15 3:51 PM) AGAP [10.0-20.0 mEq/L] CHEM PANEL 1 2 3 Most recent to oldest [Reference Range]: 1.9 mg/dL *HI* (05/25/15 3:51 PM) Creatinine Lvl [0.5-1.4 mg/dL] 35 mL/min/1.73m2 1 *NA* (05/25/15 3:51 PM) eGFR 30 mg/dL *HI* (05/25/15 3:51 PM) BUN [7-22 mg/dL] 16 (05/25/15 3:51 PM) B/C Ratio [6-25] 99 mg/dL (05/25/15 3:51 PM) Glucose Lvl [70-99 mg/dL] 8.1 g/dL (05/25/15 3:51 PM) Total Protein [6.4-8.4 g/dL] 4.0 g/dL (05/25/15 3:51 PM) Albumin Lvl [3.5-5.0 g/dL] 4.1 g/dL *HI* (05/25/15 3:51 PM) Globulin [2.0-4.0 g/dL] 1.0 (05/25/15 3:51 PM) A/G Ratio [0.7-1.6] 9.2 mg/dL (05/25/15 3:51 PM) Calcium Lvl [8.5-10.5 mg/dL] 19 unit/L (05/25/15 3:51 PM) ALT [0-65 unit/L] 11 unit/L (05/25/15 3:51 PM) AST [0-37 unit/L] 95 unit/L (05/25/15 3:51 PM) Alk Phos [39-136 unit/L] 0.8 mg/dL (05/25/15 3:51 PM) Bili Total [0.2-1.3 mg/dL] 1Result Comment: The eGFR is calculated using the [...] from the National Kid[employer] Disease Education Program ( NKDEP) which additionally recommends that when the eGFR is used in patients with extremes of body mass index for purposes of drug dosing, the eGFR should be mul tiplied by the estimated BMI. CARDIAC ENZYMES 1 2 3 Most recent to oldest [Reference Range]: 77 unit/L (05/26/15 5:33 AM) 79 unit/L (05/25/15 10:53 PM) Total CK [12-191 unit/L] 0.8 ng/mL (05/26/15 5:33 AM) 1.1 ng/mL (05/25/15 10:53 PM) 1.0 ng/mL (05/25/15 3:51 PM) CK MB [0.5-3.6 ng/mL] 1.0 (05/26/15 5:33 AM) 1.4 (05/25/15 10:53 PM) CK MB Index [0.0-2.5] <0.02 ng/mL (05/26/15 5:33 AM) <0.02 ng/mL (05/25/15 10:53 PM) <0.02 ng/mL (05/25/15 3:51 PM) Troponin-I [0.00-0.40 ng/mL] 782 pg/mL *HI* (05/25/15 3:51 PM) BNP [<=100 pg/mL] HEMATOLOGY 1 2 3 Most recent to oldest [Reference Range]: 8.4 K/CMM (05/25/15 3:51 PM) WBC [3.7-10.4 K/CMM] 4.14 M/CMM *LOW* (05/25/15 3:51 PM) RBC [4.70-6.10 M/CMM] 10.8 g/dL *LOW* (05/25/15 3:51 PM) Hgb [14.0-18.0 g/dL] 34.3 % *LOW* (05/25/15 3:51 PM) Hct [42.0-54.0 %] 82.9 fL (05/25/15 3:51 PM) MCV [80.0-94.0 fL] 26.0 pg *LOW* (05/25/15 3:51 PM) MCH [27.0-31.0 pg] 31.4 g/dL *LOW* (05/25/15 3:51 PM) MCHC [32.0-36.0 g/dL] 15.9 % *HI* (05/25/15 3:51 PM) RDW [11.5-14.5 %] 213 K/CMM (05/25/15 3:51 PM) Platelet [133-450 K/CMM] 10.3 fL (05/25/15 3:51 PM) MPV [7.4-10.4 fL] 70.1 % (05/25/15 3:51 PM) Segs [45.0-75.0 %] 19.5 % *LOW* (05/25/15 3:51 PM) Lymphocytes [20.0-40.0 %] 7.6 % (05/25/15 3:51 PM) Monocytes [2.0-12.0 %] 1.8 % (05/25/15 3:51 PM) Eosinophils [0.0-4.0 %] 1.0 % (05/25/15 3:51 PM) Basophils [0.0-1.0 %] 5.9 K/CMM (05/25/15 3:51 PM) Segs-Bands # [1.5-8.1 K/CMM] 1.6 K/CMM (05/25/15 3:51 PM) Lymphocytes # [1.0-5.5 K/CMM] 0.6 K/CMM (05/25/15 3:51 PM) Monocytes # [0.0-0.8 K/CMM] 0.1 K/CMM (05/25/15 3:51 PM) Eosinophils # [0.0-0.5 K/CMM] 0.1 K/CMM (05/25/15 3:51 PM) Basophils # [0.0-0.2 K/CMM] 12.4 seconds (05/25/15 3:51 PM) PT [12.0-14.7 seconds] 0.90 (05/25/15 3:51 PM) INR [0.85-1.17] 27.4 seconds (05/25/15 3:51 PM) PTT [22.9-35.8 seconds] Immunizations No data available for this section Procedures Procedure Date Related Diagnosis Body Site Amputation1 Cardiac pacemaker procedure2 Stent placement 1toe 25 years ago Social History Social History Type Response Alcohol Past1 Smoking Status Current some day smoker; Exposure to Tobacco Smoke None; Cigarette Smoking Last 365 Days No; Reg Smoking Cessation Counseling No 1Off for 2 weeks Assessment and Plan No data available for this section
--- OUTSIDE RECORDS SUMMARY | 2018-07-17 12:49 | XMS REPORT | Summary of Care ---
Author Author [facility] Organization [facility] Address Unknown Phone Unavailable Encounter MAYRA Guardado([place]) [id number] Date(s): 04/21/16 - 04/22/16 [facility] [address] [place] [address]- Discharge Diagnosis: Acute alcohol intoxication Discharge Diagnosis: Avulsion of skin of forearm Discharge Diagnosis: Laceration of scalp Discharge Diagnosis: Facial abrasion Discharge Disposition: Home or Self Care Attending Physician: Lilian Damon MD Vital Signs 1 2 3 Most recent to oldest [Reference Range]: 180.34 cm (04/21/16 11:41 PM) Height 98 DegF (04/22/16 5:40 AM) 98 DegF (04/22/16 3:54 AM) 97.7 DegF (04/21/16 11:41 PM) Temperature Oral [96.4-99.1 DegF] 135/74 mmHg (04/22/16 5:40 AM) 133/75 mmHg (04/22/16 4:50 AM) 130/70 mmHg (04/22/16 3:54 AM) Blood Pressure [90-140/60-90 mmHg] 19 BRMIN (04/22/16 5:40 AM) 18 BRMIN (04/22/16 4:50 AM) 18 BRMIN (04/22/16 3:54 AM) Respiratory Rate [14-20 BRMIN] 80 bpm (04/22/16 5:40 AM) 82 bpm (04/22/16 4:50 AM) 86 bpm (04/22/16 3:54 AM) Peripheral Pulse Rate [60-100 bpm] 79.545 kg (04/21/16 11:41 PM) Weight 24.46 m2 (04/21/16 11:41 PM) Body Mass Index Problem List Condition [...] Substance Reaction Severity Status NKDA Active Medications No data available for this section Results No data available for this section Immunizations No data available for this section [...]
--- OUTSIDE RECORDS SUMMARY | 2018-07-17 12:49 | XMS REPORT | CCD ---
Author Author Auto Generated Organization [facility] Address Unknown Phone Unavailable Care Team Providers Care Poiser Name Role Phone Geovanny Paz CP Allergies, Adverse Reactions, Alerts Substance Reaction Status NKDA Active Problem List Condition Effective Dates Status Acid reflux Active AF - Atrial fibrillation Active Arthritis Active Cardiac pacemaker Active DM - Diabetes mellitus Active FH: Hypercholesterolemia Active HTN - Hypertension Active Peripheral neuropathy Active Medications Medication Instructions Start Date End Date Status Levemir FlexPen 17 unit, 0.17 mL, Route: SUB-Q, 09/01/2011 09/03/2011 Discontinued Drug form: INJ, BID, Start date: 09/01/11 17:00:00, Duration: 30 day, Stop date: 10/01/11 9:00:00 Protonix 40 mg, 1 tab, Route: PO, Drug form: 09/01/2011 09/03/2011 Discontinued ECTAB, Before Dinner, Start date: 09/01/11 16:30:00, Duration: 30 day, Stop date: 09/30/11 16:30:00 metFORmin 500 mg 500 mg, 1 tab, PO, BID, 30 tab, 08/31/2011 Ordered oral tablet Substitution Allowed morphine Sulfate 4 mg, Route: IVP, ONCE, Start date: 08/31/2011 08/31/2011 Discontinued 08/31/11 18:23:00, Stop date: 08/31/11 18:23:00 ondansetron 4 mg, 2 mL, Route: IVP, Drug form: 08/31/2011 09/03/2011 Discontinued INJ, Q6H, PRN Nausea & Vomiting, Priority: Routine, Start date: 08/31/11 20:02:00, Duration: 30 day, Stop date: 09/30/11 20:01:00 morphine Sulfate 4 mg, 2 mL, Route: IVP, Drug form: 08/31/2011 09/03/2011 Discontinued INJ, Q6H, PRN Pain, Priority: Routine, Start date: 08/31/11 20:02:00, Duration: 30 day, Stop date: 09/30/11 20:01:00 clindamycin 600 mg, 4 mL, Route: IVPB, [id number], 09/01/2011 09/03/2011 Discontinued Priority: Routine, Start date: 09/01/11 0:00:00, Duration: 30 day, Stop date: 09/30/11 18:00:00 glucagon 1 mg, Route: IM, Drug form: 08/31/2011 09/03/2011 Discontinued PDR/INJ, PRN, PRN Blood Glucose Results, Start date: 08/31/11 16:16:00, Duration: 30 day, Stop date: 09/30/11 16:15:00 insulin aspart 3 unit, 0.03 mL, Route: SUB-Q, Drug 08/31/2011 09/03/2011 Discontinued form: SOLN, Bedtime, PRN Blood Glucose Results, Start date: 08/31/11 16:16:00, Duration: 30 day, Stop date: 09/30/11 16:15:00 insulin aspart 4 unit, 0.04 mL, Route: SUB-Q, Drug 08/31/2011 09/03/2011 Discontinued form: SOLN, Bedtime, PRN Blood Glucose Results, Start date: 08/31/11 16:16:00, Duration: 30 day, Stop date: 09/30/11 16:15:00 insulin aspart 2 unit, 0.02 mL, Route: SUB-Q, Drug 08/31/2011 09/03/2011 Discontinued form: SOLN, Bedtime, PRN Blood Glucose Results, Start date: 08/31/11 16:16:00, Duration: 30 day, Stop date: 09/30/11 16:15:00 insulin aspart 1 unit, 0.01 mL, Route: SUB-Q, Drug 08/31/2011 09/03/2011 Discontinued form: SOLN, Bedtime, PRN Blood Glucose Results, Start date: 08/31/11 16:16:00, Duration: 30 day, Stop date: 09/30/11 16:15:00 insulin aspart 12 unit, 0.12 mL, Route: SUB-Q, 08/31/2011 09/03/2011 Discontinued Drug form: SOLN, TID-Before Meals, PRN Blood Glucose Results, Start date: 08/31/11 16:16:00, Duration: 30 day, Stop date: 09/30/11 16:15:00 insulin aspart 15 unit, 0.15 mL, Route: SUB-Q, 08/31/2011 09/03/2011 Discontinued Drug form: SOLN, TID-Before Meals, PRN Blood Glucose Results, Start date: 08/31/11 16:16:00, Duration: 30 day, Stop date: 09/30/11 16:15:00 insulin aspart 9 unit, 0.09 mL, Route: SUB-Q, Drug 08/31/2011 09/03/2011 Discontinued form: SOLN, TID-Before Meals, PRN Blood Glucose Results, Start date: 08/31/11 16:16:00, Duration: 30 day, Stop date: 09/30/11 16:15:00 insulin aspart 6 unit, 0.06 mL, Route: SUB-Q, Drug 08/31/2011 09/03/2011 Discontinued form: SOLN, TID-Before Meals, PRN Blood Glucose Results, Start date: 08/31/11 16:16:00, Duration: 30 day, Stop date: 09/30/11 16:15:00 insulin aspart 3 unit, 0.03 mL, Route: SUB-Q, Drug 08/31/2011 09/03/2011 Discontinued form: SOLN, TID-Before Meals, PRN Blood Glucose Results, Start date: 08/31/11 16:16:00, Duration: 30 day, Stop date: 09/30/11 16:15:00 Dextrose 50% Syringe 12.5 gm, 25 mL, Route: IVP, Drug 08/31/2011 09/03/2011 Discontinued Form: INJ, PRN, PRN Blood Glucose Results, Start date: 08/31/11 16:16:00, Duration: 30 day, Stop date: 09/30/11 16:15:00 Dextrose 50% Syringe 25 gm, 50 mL, Route: IVP, Drug 08/31/2011 09/03/2011 Discontinued Form: INJ, PRN, PRN Blood Glucose Results, Start date: 08/31/11 16:16:00, Duration: 30 day, Stop date: 09/30/11 16:15:00 Dilaudid Route: IV, ONCE, Start date: 08/31/2011 08/31/2011 Completed 08/31/11 18:36:00, Stop date: 08/31/11 18:36:00 influenza virus 0.5 ml, Route: IM, Drug Form: INJ, 09/01/2011 09/01/2011 Completed vaccine, inactivated Start date: 09/01/11 9:00:00, Stop date: 09/01/11 9:00:00 Lanoxin 0.125 mg, 1 tab, Route: PO, Drug 09/01/2011 09/03/2011 Discontinued form: TAB, Daily, Start date: 09/01/11 9:00:00, Duration: 30 day, Stop date: 09/30/11 9:00:00 Neurontin 600 mg, 2 cap, Route: PO, Drug 08/31/2011 09/03/2011 Discontinued form: CAP, BID, Start date: 08/31/11 22:30:00, Duration: 30 day, Stop date: 09/30/11 17:00:00 trazodone 100 mg 100 mg, 1 tab, Route: PO, Drug 08/31/2011 09/03/2011 Discontinued oral tablet form: TAB, Bedtime, Start date: 08/31/11 22:30:00, Duration: 30 day, Stop date: 09/30/11 21:00:00 Flomax 0.4 mg, 1 cap, Route: PO, Drug 09/01/2011 09/03/2011 Discontinued form: CAP, Daily, Start date: 09/01/11 9:00:00, Duration: 30 day, Stop date: 09/30/11 9:00:00 aspirin 81 mg 81 mg, 1 tab, Route: CHEW, Drug 09/01/2011 09/03/2011 Discontinued tablet, chewable form: CHEWTAB, Every Other Day, Start date: 09/01/11 9:00:00, Duration: 30 day, Stop date: 09/29/11 9:00:00 morphine Sulfate 4 mg, 2 mL, Route: IVP, Drug form: 08/31/2011 08/31/2011 Completed INJ, ONCE, Start date: 08/31/11 16:15:00, Stop date: 08/31/11 16:15:00 vancomycin 1 gm, 250 mL, Route: IVPB, Drug 09/01/2011 09/03/2011 Discontinued form: INJ, [id number], Start date: 09/01/11 10:00:00, Duration: 30 day, Stop date: 09/30/11 22:00:00 Glucophage 500 mg, 1 tab, Route: PO, Drug 09/01/2011 09/03/2011 Discontinued form: TAB, BID-Meals, Start date: 09/01/11 8:00:00, Duration: 30 day, Stop date: 09/30/11 17:00:00 clindamycin 300 mg 300 mg, 1 cap, PO, Q6H, 56 cap, 09/02/2011 09/16/2011 Ordered oral capsule Substitution Allowed, CAP clindamycin 600 mg, 4 mL, Route: IVPB, Drug 08/31/2011 08/31/2011 Completed form: INJ, ONCE, Priority: STAT, Start date: 08/31/11 12:07:00, Stop date: 08/31/11 12:07:00 ondansetron 4 mg, 2 mL, Route: IVP, Drug form: 08/31/2011 08/31/2011 Completed INJ, ONCE, Priority: STAT, Start date: 08/31/11 12:07:00, Stop date: 08/31/11 12:07:00 morphine Sulfate 4 mg, 2 mL, Route: IVP, Drug form: 08/31/2011 08/31/2011 Completed INJ, ONCE, Priority: STAT, Start date: 08/31/11 12:07:00, Stop date: 08/31/11 12:07:00 captopril unknown, PO, Daily, Substitution 08/31/2011 Ordered Allowed aspirin 81 mg 81 mg, 1 tab, PO, Every Other Day, 08/31/2011 Ordered tablet, chewable Substitution Allowed Tylenol 650 mg, 2 tab, Route: PO, Drug 08/31/2011 09/03/2011 Discontinued form: TAB, Q4H, PRN Fever, Start date: 08/31/11 16:21:00, Duration: 30 day, Stop date: 09/30/11 16:20:00 vancomycin 1 gm, 250 mL, Route: IVPB, Drug 08/31/2011 09/01/2011 Discontinued form: INJ, Q24H, Start date: 08/31/11 17:00:00, Stop date: 09/29/11 17:00:00 Lovenox 40 mg, 0.4 mL, Route: SUB-Q, Drug 08/31/2011 09/03/2011 Discontinued form: INJ, [id number], Start date: 08/31/11 18:00:00, Duration: 30 day, Stop date: 09/29/11 18:00:00 Nexium 40 mg, Route: PO, Daily, Start 09/01/2011 08/31/2011 Deleted date: 09/01/11 9:00:00, Duration: 30 day, Stop date: 09/30/11 9:00:00 influenza virus 0.5 ml, Route: IM, Drug Form: INJ, 09/01/2011 09/01/2011 Completed vaccine, inactivated Daily, Start date: 09/01/11 9:00:00, Duration: 1 doses or times, Stop date: 09/01/11 9:00:00 captopril 12.5 mg, 1 tab, Route: PO, Drug 09/01/2011 09/03/2011 Discontinued form: TAB, Daily, Start date: 09/01/11 10:13:00, Duration: 30 day, Stop date: 10/01/11 9:00:00 Immunizations Vaccine Date Status influenza virus vaccine, inactivated 09/01/2011 Not Done Vital Signs Most recent to oldest [Reference Range]: 1 2 3 Height 175.26 cm (08/31/2011 20:08:00) 175.26 cm (08/31/2011 11:53:00) Current Weight 70.710 kg (08/31/2011 20:30:00) Temperature Oral [96.4-99.1 DegF] 98.1 DegF (09/03/2011 12:00:00) 98.0 DegF (09/03/2011 08:00:00) 98.2 DegF (09/03/2011 04:00:00) Systolic Blood Pressure [90-140 mmHg] 108 mmHg (09/03/2011 12:00:00) 159 mmHg *HI* (09/03/2011 08:00:00) 147 mmHg *HI* (09/03/2011 04:00:00) Diastolic Blood Pressure [60-90 mmHg] 61 mmHg (09/03/2011 12:00:00) 60 mmHg (09/03/2011 08:00:00) 81 mmHg (09/03/2011 04:00:00) Respiratory Rate [14-20 BRMIN] 16 BRMIN (09/03/2011 12:00:00) 17 BRMIN (09/03/2011 08:00:00) 16 BRMIN (09/03/2011 04:00:00) Peripheral Pulse Rate [60-100 bpm] 70 bpm (09/03/2011 12:00:00) 79 bpm (09/03/2011 08:00:00) 75 bpm (09/03/2011 04:00:00) Weight 70.710 kg (08/31/2011 20:08:00) 72.727 kg (08/31/2011 11:53:00) Results BODY FLUIDS Most recent to oldest [Reference Range]: 1 2 3 Color BF [Colorless] Yellow (08/31/2011 14:34:00) Clarity BF [Clear] Moderate Cloudy *ABN* (08/31/2011 14:34:00) Supernat BF [Colorless] Colorless (08/31/2011 14:34:00) RBC BF 800 /mm3 1 *NA* (08/31/2011 14:34:00) [place] [address] /mm3 2 *NA* (08/31/2011 14:34:00) Segs BF 93 % 3 *NA* (08/31/2011 14:34:00) Lymph BF 2 % *NA* (08/31/2011 14:34:00) Macrophage BF 5 % *NA* (08/31/2011 14:34:00) Crystal BF [Negative] Negative (08/31/2011 14:34:00) Crystal BF Type Synovial (08/31/2011 14:34:00) CellCnt BF Type Synovial (08/31/2011 14:34:00) 1Interpretive Data: No established reference ranges. 2Interpretive Data: No established reference ranges. 3Interpretive Data: No established reference ranges. BEDSIDE GLUCOSE TESTING Most recent to oldest [Reference Range]: 1 2 3 Gluc POC Lifscn [65-110 mg/dL] 193 mg/dL 4 *HI* (09/03/2011 11:35:00) 166 mg/dL 5 *HI* (09/03/2011 07:31:00) 166 mg/dL 6 *HI* (09/02/2011 20:59:00) Comment1 Assess patient *NA* (09/03/2011 11:35:00) Notify RN/MD *NA* (09/02/2011 20:59:00) Notify RN/MD *NA* (09/02/2011 17:11:00) Comment2 Notify RN/MD *NA* (09/03/2011 11:35:00) 4Interpretive Data: Upper Reportable Limit: 200 mg/dL. 5Interpretive Data: Upper Reportable Limit: 200 mg/dL. 6Interpretive Data: Upper Reportable Limit: 200 mg/dL. CHEMISTRY Most recent to oldest [Reference Range]: 1 2 3 Sodium Lvl [135-145 mEq/L] 141 mEq/L (09/02/2011 05:39:00) 138 mEq/L (09/01/2011 04:44:00) 139 mEq/L (08/31/2011 12:45:00) Potassium Lvl [3.5-5.1 mEq/L] 3.6 mEq/L (09/02/2011 05:39:00) 4.1 mEq/L (09/01/2011 04:44:00) 4.5 mEq/L (08/31/2011 12:45:00) Chloride Lvl [95-109 mEq/L] 105 mEq/L (09/02/2011 05:39:00) 102 mEq/L (09/01/2011 04:44:00) 105 mEq/L (08/31/2011 12:45:00) CO2 [24-32 mEq/L] 25 mEq/L (09/02/2011 05:39:00) 24 mEq/L (09/01/2011 04:44:00) 24 mEq/L (08/31/2011 12:45:00) AGAP [10.0-20.0 mEq/L] 14.6 mEq/L (09/02/2011 05:39:00) 16.1 mEq/L (09/01/2011 04:44:00) 14.5 mEq/L (08/31/2011 12:45:00) Creatinine Lvl [0.5-1.4 mg/dL] 1.3 mg/dL (09/02/2011 05:39:00) 1.2 mg/dL (09/01/2011 04:44:00) 1.4 mg/dL (08/31/2011 12:45:00) BUN [7-22 mg/dL] 15 mg/dL (09/02/2011 05:39:00) 11 mg/dL (09/01/2011 04:44:00) 15 mg/dL (08/31/2011 12:45:00) B/C Ratio [6-25] 11 (08/31/2011 12:45:00) Glucose Lvl 163 mg/dL 7 *NA* (09/02/2011 05:39:00) 194 mg/dL 8 *NA* (09/01/2011 04:44:00) 261 mg/dL 9 *NA* (08/31/2011 12:45:00) Uric Acid [3.8-8.0 mg/dL] 6.3 mg/dL (09/01/2011 10:34:00) Total Protein [6.4-8.4 g/dL] 7.3 g/dL (08/31/2011 12:45:00) Albumin Lvl [3.5-5.0 g/dL] 3.3 g/dL *LOW* (08/31/2011 12:45:00) Globulin [2.0-4.0 g/dL] 4.0 g/dL (08/31/2011 12:45:00) A/G Ratio [0.7-1.6] 0.8 (08/31/2011 12:45:00) Calcium Lvl [8.5-10.5 mg/dL] 8.8 mg/dL (09/02/2011 05:39:00) 9.2 mg/dL (09/01/2011 04:44:00) 9.3 mg/dL (08/31/2011 12:45:00) ALT [0-65 U/L] 16 U/L (08/31/2011 12:45:00) AST [0-37 U/L] 9 U/L (08/31/2011 12:45:00) Alk Phos [39-136 U/L] 79 U/L (08/31/2011 12:45:00) Bili Total [0.2-1.3 mg/dL] 0.4 mg/dL (08/31/2011 12:45:00) 7Interpretive Data: Reference Ranges : 0 - 7 days : 41 - 90 mg/dL7 days - 150 yrs : 70 - 99 mg/dL (fasting), based on the clinical recommendations of the [employer] [employer]. 8Interpretive Data: Reference Ranges : 0 - 7 days : 41 - 90 mg/dL7 days - 150 yrs : 70 - 99 mg/dL (fasting), based on the clinical recommendations of the [place] [employer]. 9Interpretive Data: Reference Ranges : 0 - 7 days : 41 - 90 mg/dL7 days - 150 yrs : 70 - 99 mg/dL (fasting), based on the clinical recommendations of the [place] [employer]. HEMATOLOGY Most recent to oldest [Reference Range]: 1 2 3 WBC [3.7-10.4 K/CMM] 11.9 K/CMM *HI* (09/02/2011 05:39:00) 11.2 K/CMM *HI* (09/01/2011 04:44:00) 13.4 K/CMM *HI* (08/31/2011 12:45:00) RBC [4.70-6.10 M/CMM] 3.49 M/CMM *LOW* (09/02/2011 05:39:00) 3.90 M/CMM *LOW* (09/01/2011 04:44:00) 3.87 M/CMM *LOW* (08/31/2011 12:45:00) Hgb [14.0-18.0 g/dL] 11.1 g/dL *LOW* (09/02/2011 05:39:00) 12.4 g/dL *LOW* (09/01/2011 04:44:00) 12.4 g/dL *LOW* (08/31/2011 12:45:00) Hct [42.0-54.0 %] 32.1 % *LOW* (09/02/2011 05:39:00) 36.2 % *LOW* (09/01/2011 04:44:00) 35.7 % *LOW* (08/31/2011 12:45:00) MCV [80.0-94.0 fL] 91.9 fL (09/02/2011 05:39:00) 92.8 fL (09/01/2011 04:44:00) 92.1 fL (08/31/2011 12:45:00) MCH [27.0-31.0 pg] 31.8 pg *HI* (09/02/2011 05:39:00) 31.9 pg *HI* (09/01/2011 04:44:00) 32.0 pg *HI* (08/31/2011 12:45:00) MCHC [32.0-36.0 g/dL] 34.6 g/dL (09/02/2011 05:39:00) 34.3 g/dL (09/01/2011 04:44:00) 34.7 g/dL (08/31/2011 12:45:00) RDW [11.5-14.5 %] 13.4 % (09/02/2011 05:39:00) 13.6 % (09/01/2011 04:44:00) 13.8 % (08/31/2011 12:45:00) Platelet [133-450 K/CMM] 178 K/CMM (09/02/2011 05:39:00) 187 K/CMM (09/01/2011 04:44:00) 191 K/CMM (08/31/2011 12:45:00) MPV [7.4-10.4 fL] 10.2 fL (09/02/2011 05:39:00) 10.4 fL (09/01/2011 04:44:00) 10.3 fL (08/31/2011 12:45:00) Segs [45.0-75.0 %] 73.1 % (09/02/2011 05:39:00) 71.6 % (09/01/2011 04:44:00) 84.9 % *HI* (08/31/2011 12:45:00) Lymphocytes [20.0-40.0 %] 17.0 % *LOW* (09/02/2011 05:39:00) 18.6 % *LOW* (09/01/2011 04:44:00) 9.3 % *LOW* (08/31/2011 12:45:00) Monocytes [2.0-12.0 %] 7.9 % (09/02/2011 05:39:00) 8.4 % (09/01/2011 04:44:00) 5.0 % (08/31/2011 12:45:00) Eosinophils [0.0-4.0 %] 1.2 % (09/02/2011 05:39:00) 1.1 % (09/01/2011 04:44:00) 0.6 % (08/31/2011 12:45:00) Basophils [0.0-1.0 %] 0.8 % (09/02/2011 05:39:00) 0.3 % (09/01/2011 04:44:00) 0.2 % (08/31/2011 12:45:00) Segs-Bands # [1.5-8.1 K/CMM] 8.7 K/CMM *HI* (09/02/2011 05:39:00) 8.0 K/CMM (09/01/2011 04:44:00) 11.3 K/CMM *HI* (08/31/2011 12:45:00) Lymphocytes # [1.0-5.5 K/CMM] 2.0 K/CMM (09/02/2011 05:39:00) 2.1 K/CMM (09/01/2011 04:44:00) 1.2 K/CMM (08/31/2011 12:45:00) Monocytes # [0.0-0.8 K/CMM] 0.9 K/CMM *HI* (09/02/2011 05:39:00) 0.9 K/CMM *HI* (09/01/2011 04:44:00) 0.7 K/CMM (08/31/2011 12:45:00) Eosinophils # [0.0-0.5 K/CMM] 0.1 K/CMM (09/02/2011 05:39:00) 0.1 K/CMM (09/01/2011 04:44:00) 0.1 K/CMM (08/31/2011 12:45:00) Basophils # [0.0-0.2 K/CMM] 0.1 K/CMM (09/02/2011 05:39:00) 0.0 K/CMM (09/01/2011 04:44:00) 0.0 K/CMM (08/31/2011 12:45:00) Polychrom [None Seen] Slight (08/31/2011 12:45:00) Hypochrom [None Seen] Slight (08/31/2011 12:45:00) Large Plt [None Seen] Slight *ABN* (08/31/2011 12:45:00) Sed Rate [0-15 mm/hr] 63 mm/hr *HI* (09/01/2011 10:34:00) 48 mm/hr *HI* (08/31/2011 12:45:00) IMMUNOLOGY Most recent to oldest [Reference Range]: 1 2 3 CRP, High Sensitivity 107.0 mg/L 10 *NA* (09/01/2011 10:34:00) 10Interpretive Data: Low Risk: <1.0 mg/LAverage Risk: 1.0 - 3.0 mg/LHigh Risk: >3.0 mg/LInflammation: >10.0 mg/L Microbiology Reports PROCEDURE:Culture: Blood STATUS: In Progress BODY SITE: Left Hand COLLECTED DATE/TIME: 08/31/2011 16:47:00 SOURCE: Blood FREE TEXT SOURCE: PRELIMINARY REPORTS Preliminary Report No Growth At 1 Day Preliminary Report No Growth At 3 Days Preliminary Report No Growth At 2 Days Preliminary Report No Growth; Holding Preliminary Report No Growth At 4 Days PROCEDURE:Culture: Blood STATUS: In Progress BODY SITE: Left Hand COLLECTED DATE/TIME: 08/31/2011 16:38:00 SOURCE: Blood FREE TEXT SOURCE: PRELIMINARY REPORTS Preliminary Report No Growth At 3 Days Preliminary Report No Growth At 4 Days Preliminary Report No Growth; Holding Preliminary Report No Growth At 2 Days Preliminary Report No Growth At 1 Day PROCEDURE:Culture: Aspirate/Body Fluid/Tissue STATUS: Auth (Verified) BODY SITE: COLLECTED DATE/TIME: 08/31/2011 14:34:00 SOURCE: Synovial Fluid FREE TEXT SOURCE: FINAL REPORTS Final Report No Growth PRELIMINARY REPORTS Preliminary Report No Growth; Holding Preliminary Report 48 Hour Report - No Growth, Holding Preliminary Report 72 Hour Report - No Growth, Holding STAIN REPORTS Stain Report Few WBC's No Organisms Seen
--- OUTSIDE RECORDS SUMMARY | 2018-07-17 12:49 | XMS REPORT | CCD ---
Author Author Auto Generated Organization [facility] Address Unknown Phone Unavailable Care Team Providers Care Mortgage Loan Specialist Name Role Phone Geovanny Paz CP Allergies, Adverse Reactions, Alerts Substance Reaction Status NKDA Active Problem List Condition Effective Dates Status Acid reflux Active AF - Atrial fibrillation Active Arthritis Active Cardiac pacemaker Active CHF - Congestive heart failure Active DM - Diabetes mellitus Active Enlarged prostate Active FH: Hypercholesterolemia Active HTN - Hypertension Active Peripheral neuropathy Active Medications Medication Instructions Start Date End Date Status nitroglycerin 0.4 mg 0.4 mg, 1 tab, Route: SL, Drug 11/13/2011 11/15/2011 Discontinued sublingual tablet form: TAB, Q5Min, PRN Chest Pain, Start date: 11/13/11 15:15:00, Duration: 30 day, Stop date: 12/13/11 16:14:00 atropine 0.5 mg, 5 mL, Route: IVP, Drug 11/13/2011 11/15/2011 Discontinued form: INJ, PRN, PRN Bradycardia, Start date: 11/13/11 15:15:00, Duration: 30 day, Stop date: 12/13/11 16:14:00 Protonix 40 mg, 1 tab, Route: PO, Drug form: 11/13/2011 11/15/2011 Discontinued ECTAB, Before Dinner, Start date: 11/13/11 13:30:00, Duration: 30 day, Stop date: 12/12/11 16:30:00 [place] 10/325 oral 1 tab, Route: PO, Drug Form: TAB, 11/13/2011 11/13/2011 Completed tablet ONCE, PRN Pain, Start date: 11/13/11 11:35:00, Stop date: 12/13/11 11:34:00 influenza virus 0.5 ml, Route: IM, Drug Form: INJ, 09/01/2011 09/01/2011 Completed vaccine, inactivated Start date: 09/01/11 9:00:00, Stop date: 09/01/11 9:00:00 furosemide 40 mg, Route: IVP, ONCE, Priority: 11/13/2011 11/13/2011 Completed STAT, Start date: 11/13/11 9:22:00, Stop date: 11/13/11 9:22:00 nitroglycerin 2% 1 inch, Route: TOP, Drug Form: 11/13/2011 11/15/2011 Discontinued ointment OINT, Q6H, Start date: 11/13/11 12:00:00, Duration: 30 day, Stop date: 12/13/11 6:00:00 Ceftin 500 mg oral 500 mg, 1 tab, PO, BID, 20 tab, 11/15/2011 Ordered tablet Substitution Allowed Lasix 40 mg oral 40 mg, 1 tab, PO, Daily, 30 tab, 11/15/2011 Ordered tablet Substitution Allowed, TAB captopril 12.5 mg, 1 tab, Route: PO, Drug 11/14/2011 11/15/2011 Discontinued form: TAB, Q12H, Start date: 11/14/11 9:00:00, Duration: 30 day, Stop date: 12/13/11 21:00:00 Cipro 400 mg, 200 mL, Route: IVPB, Drug 11/13/2011 11/15/2011 Discontinued form: INJ, Q12H, Start date: 11/13/11 21:00:00, Duration: 30 day, Stop date: 12/13/11 9:00:00 cefepime 1 gm, Route: IVPB, Q12H, Start 11/13/2011 11/15/2011 Discontinued date: 11/13/11 20:00:00, Duration: 30 day, Stop date: 12/13/11 8:00:00 Klor-Con 10 20 mEq, 1 tab, Route: PO, Drug 11/14/2011 11/15/2011 Discontinued form: ERTAB, Daily, Start date: 11/14/11 9:00:00, Duration: 30 day, Stop date: 12/13/11 9:00:00 trazodone 100 mg 100 mg, 2 tab, Route: PO, Drug 11/13/2011 11/15/2011 Discontinued oral tablet form: TAB, Bedtime, Start date: 11/13/11 21:00:00, Duration: 30 day, Stop date: 12/12/11 21:00:00 tamsulosin 0.4 mg, 1 cap, Route: PO, Drug 11/14/2011 11/15/2011 Discontinued form: CAP, Daily, Start date: 11/14/11 9:00:00, Duration: 30 day, Stop date: 12/13/11 9:00:00 lisinopril 5 mg, 1 tab, Route: PO, Drug form: 11/14/2011 11/15/2011 Discontinued TAB, Daily, Start date: 11/14/11 9:00:00, Duration: 30 day, Stop date: 12/13/11 9:00:00 metFORmin 500 mg 500 mg, 1 tab, Route: PO, Drug 11/13/2011 11/15/2011 Discontinued oral tablet form: TAB, BID, Start date: 11/13/11 17:00:00, Duration: 30 day, Stop date: 12/13/11 9:00:00 gabapentin 300 mg 600 mg, 2 cap, Route: PO, Drug 11/13/2011 11/15/2011 Discontinued oral capsule form: CAP, BID, Start date: 11/13/11 17:00:00, Duration: 30 day, Stop date: 12/13/11 9:00:00 pneumococcal 0.5 ml, Route: IM, Daily, Start 11/16/2011 11/15/2011 Canceled 23-valent vaccine date: 11/16/11 9:00:00, Duration: 1 doses or times, Stop date: 11/16/11 9:00:00 ciprofloxacin 400 mg, 200 mL, Route: IVPB, Drug 11/13/2011 11/13/2011 Completed form: INJ, ONCE, Priority: STAT, Start date: 11/13/11 8:10:00, Stop date: 11/13/11 8:10:00 cefepime 2 gm, Route: IVPB, ONCE, Priority: 11/13/2011 11/13/2011 Completed STAT, Start date: 11/13/11 8:09:00, Stop date: 11/13/11 8:09:00 digoxin 125 mcg 0.125 mg, 1 tab, Route: PO, Drug 11/14/2011 11/15/2011 Discontinued (0.125 mg) oral form: TAB, Daily, Start date: tablet 11/14/11 6:00:00, Duration: 30 day, Stop date: 12/13/11 6:00:00 Coreg 3.125 mg, 1 tab, Route: PO, Drug 11/13/2011 11/15/2011 Discontinued form: TAB, Q12H, Start date: 11/13/11 21:00:00, Duration: 30 day, Stop date: 12/13/11 9:00:00 captopril Route: PO, Daily, Start date: 11/14/2011 11/14/2011 Deleted 11/14/11 9:00:00, Duration: 30 day, Stop date: 12/13/11 9:00:00 aspirin 81 mg 81 mg, 1 tab, Route: PO, Drug form: 11/13/2011 11/15/2011 Discontinued tablet, chewable CHEWTAB, Every Other Day, Start date: 11/13/11 13:30:00, Duration: 30 day, Stop date: 12/13/11 9:00:00 Lomotil oral tablet 1 tab, Route: PO, Drug Form: TAB, 11/14/2011 11/15/2011 Discontinued Q6H, PRN Loose Stools, Start date: 11/14/11 16:26:00, Duration: 30 day, Stop date: 12/14/11 16:25:00 Lasix 40 mg, 4 mL, Route: IVP, Drug form: 11/14/2011 11/15/2011 Discontinued INJ, Daily, Start date: 11/14/11 9:00:00, Duration: 30 day, Stop date: 12/13/11 9:00:00 Nexium 40 mg, Route: PO, Daily, Start 11/14/2011 11/13/2011 Deleted date: 11/14/11 9:00:00, Duration: 30 day, Stop date: 12/13/11 9:00:00 Lovenox 40 mg, 0.4 mL, Route: SUB-Q, Drug 11/13/2011 11/15/2011 Discontinued form: INJ, [id number], Start date: 11/13/11 13:00:00, Duration: 30 day, Stop date: 12/12/11 13:00:00 insulin aspart 3 unit, 0.03 mL, Route: SUB-Q, Drug 11/13/2011 11/15/2011 Discontinued form: SOLN, TID-Before Meals, PRN Blood Glucose Results, Start date: 11/13/11 12:55:00, Duration: 30 day, Stop date: 12/13/11 12:54:00 insulin aspart 6 unit, 0.06 mL, Route: SUB-Q, Drug 11/13/2011 11/15/2011 Discontinued form: SOLN, TID-Before Meals, PRN Blood Glucose Results, Start date: 11/13/11 12:55:00, Duration: 30 day, Stop date: 12/13/11 12:54:00 insulin aspart 12 unit, 0.12 mL, Route: SUB-Q, 11/13/2011 11/15/2011 Discontinued Drug form: SOLN, TID-Before Meals, PRN Blood Glucose Results, Start date: 11/13/11 12:55:00, Duration: 30 day, Stop date: 12/13/11 12:54:00 insulin aspart 9 unit, 0.09 mL, Route: SUB-Q, Drug 11/13/2011 11/15/2011 Discontinued form: SOLN, TID-Before Meals, PRN Blood Glucose Results, Start date: 11/13/11 12:55:00, Duration: 30 day, Stop date: 12/13/11 12:54:00 insulin aspart 15 unit, 0.15 mL, Route: SUB-Q, 11/13/2011 11/15/2011 Discontinued Drug form: SOLN, TID-Before Meals, PRN Blood Glucose Results, Start date: 11/13/11 12:55:00, Duration: 30 day, Stop date: 12/13/11 12:54:00 Dextrose 50% Syringe 25 gm, 50 mL, Route: IVP, Drug 11/13/2011 11/15/2011 Discontinued Form: INJ, PRN, PRN Blood Glucose Results, Start date: 11/13/11 12:55:00, Duration: 30 day, Stop date: 12/13/11 13:54:00 glucagon 1 mg, Route: IM, Drug form: 11/13/2011 11/15/2011 Discontinued PDR/INJ, PRN, PRN Blood Glucose Results, Start date: 11/13/11 12:55:00, Duration: 30 day, Stop date: 12/13/11 13:54:00 Dextrose 50% Syringe 12.5 gm, 25 mL, Route: IVP, Drug 11/13/2011 11/15/2011 Discontinued Form: INJ, PRN, PRN Blood Glucose Results, Start date: 11/13/11 12:55:00, Duration: 30 day, Stop date: 12/13/11 13:54:00 insulin aspart 2 unit, 0.02 mL, Route: SUB-Q, Drug 11/13/2011 11/15/2011 Discontinued form: SOLN, Bedtime, PRN Blood Glucose Results, Start date: 11/13/11 12:55:00, Duration: 30 day, Stop date: 12/13/11 12:54:00 insulin aspart 1 unit, 0.01 mL, Route: SUB-Q, Drug 11/13/2011 11/15/2011 Discontinued form: SOLN, Bedtime, PRN Blood Glucose Results, Start date: 11/13/11 12:55:00, Duration: 30 day, Stop date: 12/13/11 12:54:00 insulin aspart 3 unit, 0.03 mL, Route: SUB-Q, Drug 11/13/2011 11/15/2011 Discontinued form: SOLN, Bedtime, PRN Blood Glucose Results, Start date: 11/13/11 12:55:00, Duration: 30 day, Stop date: 12/13/11 12:54:00 insulin aspart 4 unit, 0.04 mL, Route: SUB-Q, Drug 11/13/2011 11/15/2011 Discontinued form: SOLN, Bedtime, PRN Blood Glucose Results, Start date: 11/13/11 12:55:00, Duration: 30 day, Stop date: 12/13/11 12:54:00 Immunizations Vaccine Date Status influenza virus vaccine, inactivated 09/01/2011 Not Done Vital Signs Most recent to oldest [Reference Range]: 1 2 3 Height 175.26 cm (11/13/2011 06:58:00) Current Weight 71.909 kg (11/15/2011 05:32:00) Temperature Oral [96.4-99.1 DegF] 97.7 DegF (11/15/2011 16:00:00) 98.1 DegF (11/15/2011 12:00:00) 97.8 DegF (11/15/2011 08:00:00) Systolic Blood Pressure [90-140 mmHg] 128 mmHg (11/15/2011 16:00:00) 128 mmHg (11/15/2011 12:00:00) 119 mmHg (11/15/2011 08:00:00) Diastolic Blood Pressure [60-90 mmHg] 83 mmHg (11/15/2011 16:00:00) 70 mmHg (11/15/2011 12:00:00) 71 mmHg (11/15/2011 08:00:00) Respiratory Rate [14-20 BRMIN] 18 BRMIN (11/15/2011 16:00:00) 18 BRMIN (11/15/2011 12:00:00) 18 BRMIN (11/15/2011 08:00:00) Peripheral Pulse Rate [60-100 bpm] 80 bpm (11/15/2011 16:00:00) 71 bpm (11/15/2011 12:00:00) 73 bpm (11/15/2011 08:00:00) Weight 72.727 kg (11/13/2011 06:58:00) Results BEDSIDE GLUCOSE TESTING Most recent to oldest [Reference Range]: 1 2 3 Gluc POC Lifscn [65-110 mg/dL] 201 mg/dL 1 *HI* (11/15/2011 11:23:00) 175 mg/dL 2 *HI* (11/15/2011 06:05:00) 220 mg/dL 3 *HI* (11/14/2011 21:17:00) Comment1 Notify RN/MD *NA* (11/15/2011 11:23:00) Notify RN/MD *NA* (11/15/2011 06:05:00) Notify RN/MD *NA* (11/14/2011 21:17:00) 1Interpretive Data: Upper Reportable Limit: 200 mg/dL. 2Interpretive Data: Upper Reportable Limit: 200 mg/dL. 3Interpretive Data: Upper Reportable Limit: 200 mg/dL. URINALYSIS Most recent to oldest [Reference Range]: 1 2 3 UA Turbidity [Clear] Clear (11/13/2011 08:35:00) UA Color [Yellow] Yellow *NA* (11/13/2011 08:35:00) UA pH [5.0-8.0] 7.0 (11/13/2011 08:35:00) UA Spec Grav [<=1.030] 1.025 (11/13/2011 08:35:00) UA Glucose [Negative mg/dL] 500 mg/dL *ABN* (11/13/2011 08:35:00) UA Blood [Negative] Trace *ABN* (11/13/2011 08:35:00) UA Ketones [Negative] Negative *NA* (11/13/2011 08:35:00) UA Protein [Negative mg/dL] 100 mg/dL *ABN* (11/13/2011 08:35:00) UA Urobilinogen [0.1-1.0 EU/dL] 0.2 EU/dL (11/13/2011 08:35:00) UA Bili [Negative] Negative *NA* (11/13/2011 08:35:00) UA Leuk Est [Negative] Negative (11/13/2011 08:35:00) UA Nitrite [Negative] Negative (11/13/2011 08:35:00) UA WBC [None Seen] None Seen (11/13/2011 08:35:00) UA RBC [0-2] None Seen (11/13/2011 08:35:00) UA Bacteria [None Seen] None Seen (11/13/2011 08:35:00) UA Sq Epi [Few] None Seen (11/13/2011 08:35:00) Micro? Performed (11/13/2011 08:35:00) CHEMISTRY Most recent to oldest [Reference Range]: 1 2 3 Sodium Lvl [135-145 mEq/L] 145 mEq/L (11/14/2011 05:17:00) 145 mEq/L (11/13/2011 07:15:00) Potassium Lvl [3.5-5.1 mEq/L] 3.9 mEq/L (11/14/2011 05:17:00) 4.0 mEq/L (11/13/2011 07:15:00) Chloride Lvl [95-109 mEq/L] 105 mEq/L (11/14/2011 05:17:00) 107 mEq/L (11/13/2011 07:15:00) CO2 [24-32 mEq/L] 31 mEq/L (11/14/2011 05:17:00) 28 mEq/L (11/13/2011 07:15:00) AGAP [10.0-20.0 mEq/L] 12.9 mEq/L (11/14/2011 05:17:00) 14.0 mEq/L (11/13/2011 07:15:00) Creatinine Lvl [0.5-1.4 mg/dL] 1.3 mg/dL (11/14/2011 05:17:00) 1.2 mg/dL (11/13/2011 07:15:00) BUN [7-22 mg/dL] 13 mg/dL (11/14/2011 05:17:00) 14 mg/dL (11/13/2011 07:15:00) B/C Ratio [6-25] 12 (11/13/2011 07:15:00) Glucose Lvl 143 mg/dL 4 *NA* (11/14/2011 05:17:00) 192 mg/dL 5 *NA* (11/13/2011 07:15:00) Total Protein [6.4-8.4 g/dL] 7.0 g/dL (11/13/2011 07:15:00) Albumin Lvl [3.5-5.0 g/dL] 3.3 g/dL *LOW* (11/13/2011 07:15:00) Globulin [2.0-4.0 g/dL] 3.7 g/dL (11/13/2011 07:15:00) A/G Ratio [0.7-1.6] 0.9 (11/13/2011 07:15:00) Calcium Lvl [8.5-10.5 mg/dL] 8.8 mg/dL (11/14/2011 05:17:00) 8.8 mg/dL (11/13/2011 07:15:00) ALT [0-65 U/L] 21 U/L (11/13/2011 07:15:00) AST [0-37 U/L] 7 U/L (11/13/2011 07:15:00) Alk Phos [39-136 U/L] 89 U/L (11/13/2011 07:15:00) Bili Total [0.2-1.3 mg/dL] 0.3 mg/dL (11/13/2011 07:15:00) Total CK [12-191 U/L] 69 U/L (11/13/2011 07:15:00) CK MB [0.5-3.6 ng/mL] 1.2 ng/mL (11/13/2011 07:15:00) CK MB Index [0.0-2.5] 1.7 (11/13/2011 07:15:00) Troponin-I [0.00-0.40 ng/mL] <0.02 ng/mL (11/13/2011 07:15:00) BNP [<=100 pg/mL] 1419 pg/mL 6 *HI* (11/13/2011:15:00) Digoxin Lvl [0.8-2.0 ng/mL] 0.8 ng/mL (11/13/2011 07:15:00) 4Interpretive Data: Reference Ranges : 0 - 7 days : 41 - 90 mg/dL7 days - 150 yrs : 70 - 99 mg/dL (fasting), based on the clinical recommendations of the [place] [employer]. 5Interpretive Data: Reference Ranges : 0 - 7 days : 41 - 90 mg/dL7 days - 150 yrs : 70 - 99 mg/dL (fasting), based on the clinical recommendations of the [place] [employer]. 6Interpretive Data: Elevated results are in line with increasing severity of congestive heart failure. Minor elevations between 100 and 300 may be seen with Myocardial Ischemia, Sodium retaining drugs, and compensated/treated heart failure. HEMATOLOGY Most recent to oldest [Reference Range]: 1 2 3 WBC [3.7-10.4 K/CMM] 8.1 K/CMM (11/14/2011 05:17:00) 13.5 K/CMM *HI* (11/13/2011 07:15:00) RBC [4.70-6.10 M/CMM] 3.33 M/CMM *LOW* (11/14/2011 05:17:00) 3.72 M/CMM *LOW* (11/13/2011 07:15:00) Hgb [14.0-18.0 g/dL] 9.4 g/dL *LOW* (11/14/2011 05:17:00) 10.7 g/dL *LOW* (11/13/2011 07:15:00) Hct [42.0-54.0 %] 29.3 % *LOW* (11/14/2011 05:17:00) 32.7 % *LOW* (11/13/2011 07:15:00) MCV [80.0-94.0 fL] 88.1 fL (11/14/2011 05:17:00) 87.8 fL (11/13/2011 07:15:00) MCH [27.0-31.0 pg] 28.2 pg (11/14/2011 05:17:00) 28.8 pg (11/13/2011 07:15:00) MCHC [32.0-36.0 g/dL] 32.0 g/dL (11/14/2011 05:17:00) 32.8 g/dL (11/13/2011 07:15:00) RDW [11.5-14.5 %] 15.4 % *HI* (11/14/2011 05:17:00) 15.5 % *HI* (11/13/2011 07:15:00) Platelet [133-450 K/CMM] 242 K/CMM (11/14/2011 05:17:00) 284 K/CMM (11/13/2011 07:15:00) MPV [7.4-10.4 fL] 10.1 fL (11/14/2011 05:17:00) 9.9 fL (11/13/2011 07:15:00) Segs [45.0-75.0 %] 63.6 % (11/14/2011 05:17:00) 81.5 % *HI* (11/13/2011 07:15:00) Lymphocytes [20.0-40.0 %] 23.3 % (11/14/2011 05:17:00) 11.1 % *LOW* (11/13/2011 07:15:00) Monocytes [2.0-12.0 %] 9.7 % (11/14/2011 05:17:00) 5.6 % (11/13/2011 07:15:00) Eosinophils [0.0-4.0 %] 2.8 % (11/14/2011 05:17:00) 1.4 % (11/13/2011 07:15:00) Basophils [0.0-1.0 %] 0.6 % (11/14/2011 05:17:00) 0.4 % (11/13/2011 07:15:00) Segs-Bands # [1.5-8.1 K/CMM] 5.1 K/CMM (11/14/2011 05:17:00) 11.0 K/CMM *HI* (11/13/2011 07:15:00) Lymphocytes # [1.0-5.5 K/CMM] 1.9 K/CMM (11/14/2011 05:17:00) 1.5 K/CMM (11/13/2011 07:15:00) Monocytes # [0.0-0.8 K/CMM] 0.8 K/CMM (11/14/2011 05:17:00) 0.7 K/CMM (11/13/2011 07:15:00) Eosinophils # [0.0-0.5 K/CMM] 0.2 K/CMM (11/14/2011 05:17:00) 0.2 K/CMM (11/13/2011 07:15:00) Basophils # [0.0-0.2 K/CMM] 0.1 K/CMM (11/14/2011 05:17:00) 0.1 K/CMM (11/13/2011 07:15:00) Microbiology Reports PROCEDURE:Culture: Blood STATUS: In Progress BODY SITE: Arm L COLLECTED DATE/TIME: 11/13/2011 07:55:00 SOURCE: Blood FREE TEXT SOURCE: PRELIMINARY REPORTS Preliminary Report No Growth At 3 Days Preliminary Report No Growth; Holding Preliminary Report No Growth At 2 Days Preliminary Report No Growth At 1 Day PROCEDURE:Culture: Blood STATUS: In Progress BODY SITE: Hand R COLLECTED DATE/TIME: 11/13/2011 07:49:00 SOURCE: Blood FREE TEXT SOURCE: PRELIMINARY REPORTS Preliminary Report No Growth At 2 Days Preliminary Report No Growth At 1 Day Preliminary Report No Growth At 3 Days Preliminary Report No Growth; Holding
--- OUTSIDE RECORDS SUMMARY | 2018-07-17 12:50 | XMS REPORT ---
Author Author [facility] Address Unknown Phone Unavailable Care Team Providers Care Rn Referral Name Role Phone Nicol PASTOR Unavailable Unavailable Problems This patient has no known problems. Allergies, Adverse Reactions, Alerts This patient has no known allergies or adverse reactions. Medications This patient has no known medications. Results Test Description Test Time Test Comments Text Results Atomic Results Result Comments CHEST 2 VIEWS [place] [address] Patient Name: ELENO ROBERT JR MR #: [id number] : 1945 Age/Sex: 72/M Req #: [id number] Adm Physician: Ordered by: JOSIAH VENTURA DRUM STENCILER Report #: [id number] Location: ER Room/Bed: Procedure: [id number] DX/CHEST 2 VIEWS Exam Date: 08/29/17 Exam Time: 1210 REPORT STATUS: Signed PROCEDURE: CHEST 2 VIEWS TECHNIQUE: Portable AP chest INDICATION: Shortness of breath COMPARISON: [facility], DX, CHEST 2 VIEWS, 12/21/2016, 14:15. FINDINGS: Lungs are clear and symmetrically inflated. No pleural effusions. Normal heart size and mediastinal contour. 2- lead AICD/pacemaker over the left hemithorax. Skeleton is intact. Unchanged seventh and eighth rib osseous bridging. CONCLUSION: No acute abnormality or change from December 2016. Dictated by: Toni Ramirez M.D. on 08/29/2017 at 12:38 Electronically approved by: Toni Ramirez M.D. on 08/29/2017 at 12:38 Dictated By: TONI RAMIREZ MD [id number] Transcribed By: CLEMENTE on 08/29/17 1238 COPY TO: JOSIAH VENTURA NP
[2018-07-17] MEDS ORDERED: SODIUM CHLORIDE 0.9% 1000ML 1,000 ML IV STA (13:11)
[2018-07-17 14:11] LABS: BASOPHILS % 0.3 % (0.0-1.0); EOSINOPHILS # (AUTO) 0.1 (0.0-0.4); EOSINOPHILS % 0.9 % (0.0-6.0); HEMATOCRIT 26.3 % (38.2-49.6); HEMOGLOBIN 7.9 g/dL (14.0-18.0); LYMPHOCYTES # (AUTO) 0.8 (1.0-3.2); LYMPHOCYTES % 8.3 % (18.0-39.1); MEAN CORPUSCULAR HEMOGLOBIN 23.8 pg (28-32); MEAN CORPUSCULAR VOLUME 79.2 fL (81-99); MONOCYTES # (AUTO) 0.6 (0.2-0.8); NEUTROPHILS % 84.2 % (38.7-80.0); PLATELET COUNT 294 x10e3/uL (140-360); RED BLOOD COUNT 3.32 x10e6/uL (4.3-5.7); RED CELL DISTRIBUTION WIDTH 17.1 % (11.7-14.4)
[2018-07-17 14:27] LABS: INR 0.87; PROTHROMBIN TIME 12.6 seconds (11.9-14.5)
[2018-07-17 14:28] LABS: PARTIAL THROMBOPLASTIN TIME 30.4 seconds (23.8-35.5)
[2018-07-17] MEDS ORDERED: SODIUM CHLORIDE FLUSH 10 ML SYR INJ PRN (14:30)
[2018-07-17] MEDS ORDERED: ASPIRIN 81 MG CHEW TAB PO ONE (14:30)
[2018-07-17] MEDS ORDERED: SODIUM CHLORIDE 0.9% 250ML 250 ML IV ONE (14:30)
[2018-07-17 14:38] LABS: CREATINE KINASE MB 1.7 ng/mL (0-5.0)
[2018-07-17 14:39] LABS: ALBUMIN 3.5 g/dL (3.5-5.0); ANION GAP 14.7 mmol/L (8-16); CALCIUM 9.7 mg/dL (8.4-10.2); CREATININE, SERUM 1.85 mg/dL (0.72-1.25); POTASSIUM 3.7 mmol/L (3.5-5.1)
[2018-07-17] MEDS ORDERED: DEXTROSE 50% SYRINGE 50 ML IV PRN (16:00)
[2018-07-17] MEDS ORDERED: FUROSEMIDE INJ 10 MG/ML 2 ML VIAL IV ONE ×2 (16:45)
[2018-07-17] MEDS ORDERED: FUROSEMIDE INJ 10 MG/ML 2 ML VIAL IV PRN (16:45)
[2018-07-17] MEDS ORDERED: ENOXAPARIN SOD INJ 40 MG/0.4 ML SYR SC SCH (17:00)
[2018-07-17 17:22] VITALS: BP 135/78
[2018-07-17] MEDS: INSULIN REGULAR, HUMAN 100 UNIT/1 ML 3ML VIAL SQ SCH ×2 (18:04→21:46)
[2018-07-17 18:16] VITALS: BP 135/78
[2018-07-17] MEDS ORDERED: SODIUM CHLORIDE 0.9% 250ML 250 ML ONE (18:43)
[2018-07-17 20:00] VITALS: BP 123/63
[2018-07-17] MEDS ORDERED: TAMSULOSIN HCL 0.4 MG CAP PO SCH (21:00)
[2018-07-17] MEDS ORDERED: INSULIN DETEMIR 100 UNIT/ML PEN SQ SCH (21:00)
[2018-07-17] MEDS: GABAPENTIN 300 MG CAP PO SCH (21:00)
[2018-07-17] MEDS ORDERED: TRAZODONE HCL 50 MG TAB PO SCH (21:00)
[2018-07-17] MEDS ORDERED: INSULIN REGULAR, HUMAN 100 UNIT/1 ML 3ML VIAL SQ SCH (21:00)
[2018-07-17] MEDS: FUROSEMIDE INJ 10 MG/ML 2 ML VIAL IV PRN (22:50)
[2018-07-17 23:12] LABS: CREATINE KINASE MB 1.3 ng/mL (0-5.0)
[2018-07-18] VITALS: BP 100/55
[2018-07-18] MEDS ORDERED: SODIUM CHLORIDE 0.9% 250ML 250 ML ONE (00:03)
[2018-07-18] MEDS: FUROSEMIDE INJ 10 MG/ML 2 ML VIAL IV PRN (03:35)
[2018-07-18 04:00] VITALS: BP 126/62
[2018-07-18 05:46] LABS: BASOPHILS # (AUTO) 0.1 (0.0-0.1); BASOPHILS % 0.5 % (0.0-1.0); EOSINOPHILS # (AUTO) 0.3 (0.0-0.4); EOSINOPHILS % 3.2 % (0.0-6.0); HEMATOCRIT 29.7 % (38.2-49.6); HEMOGLOBIN 9.1 g/dL (14.0-18.0); LYMPHOCYTES # (AUTO) 1.6 (1.0-3.2); LYMPHOCYTES % 16.7 % (18.0-39.1); MEAN CORPUSCULAR HEMOGLOBIN 24.2 pg (28-32); MEAN CORPUSCULAR HGB CONC 30.6 g/dL (31-35); MONOCYTES # (AUTO) 0.8 (0.2-0.8); MONOCYTES % 8.2 % (4.4-11.3); NEUTROPHILS # (AUTO) 6.7 (2.1-6.9); PLATELET COUNT 265 x10e3/uL (140-360); RED BLOOD COUNT 3.76 x10e6/uL (4.3-5.7); RED CELL DISTRIBUTION WIDTH 16.8 % (11.7-14.4)
[2018-07-18 06:30] LABS: ALBUMIN 3.2 g/dL (3.5-5.0); ANION GAP 15.9 mmol/L (8-16); CALCIUM 9.5 mg/dL (8.4-10.2); CREATININE, SERUM 1.72 mg/dL (0.72-1.25); POTASSIUM 3.9 mmol/L (3.5-5.1)
--- NOTE | 2018-07-18 06:46 | Diagnostic Imaging Report ---
EXAMINATION: CHEST SINGLE (PORTABLE) INDICATION: Shortness of breath. ^SOB ^[id number] ^[id number] COMPARISON: None FINDINGS: AP view TUBES and LINES: Left chest wall cardiac device. LUNGS: Lungs are well inflated. Right infrahilar opacity, likely atelectasis. PLEURA: No pleural effusion or pneumothorax. HEART AND MEDIASTINUM: Mild enlargement of the cardiac silhouette. BONES AND SOFT TISSUES: No acute osseous lesion. Soft tissues are unremarkable. UPPER ABDOMEN: No free air under the diaphragm. IMPRESSION: Right infrahilar opacity, likely atelectasis. Developing pneumonia not excluded. Signed by: DR. Manny Mcadams MD on 07/18/2018 6:43 AM
[2018-07-18] MEDS: INSULIN REGULAR, HUMAN 100 UNIT/1 ML 3ML VIAL SQ SCH (07:30)
[2018-07-18] MEDS ORDERED: INSULIN REGULAR, HUMAN 100 UNIT/1 ML 3ML VIAL SQ SCH (07:30)
[2018-07-18 08:02] VITALS: BP 123/65
[2018-07-18] MEDS: GABAPENTIN 300 MG CAP PO SCH ×2 (08:28→09:00)
[2018-07-18] MEDS ORDERED: GABAPENTIN 300 MG CAP PO SCH (09:00)
[2018-07-18] MEDS ORDERED: FUROSEMIDE 40 MG TAB PO SCH (09:00)
[2018-07-18] MEDS ORDERED: SPIRONOLACTONE 25 MG TAB PO SCH (09:00)
[2018-07-18] MEDS ORDERED: PANTOPRAZOLE SOD 40 MG TABEC PO SCH ×2 (09:00)
[2018-07-18 09:32] VITALS: BP 123/65
--- NOTE | 2018-07-18 10:09 | History and Physical ---
SHORTSTAY SUMMARY Mr. Anup Barbour is a 73-year-old male patient who was admitted with complaint of severe shortness of breath and weakness. The patient was seen as an outpatient, and the patient was found to have severe anemia. The patient's blood test was done, and the patient continued to have severe anemia. Hemoglobin was 7.5 and 7.6. The patient was symptomatic with shortness of breath and profound weakness. The patient was admitted for blood transfusion and anemia checkup. 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 Permanent pacemaker placement. The patient has COPD, chronic bronchitis and coronary artery disease. FAMILY HISTORY: Diabetes mellitus. SOCIAL HISTORY: The patient is an ex-smoker. He quit smoking. He used to drink alcohol but quit drinking. ALLERGIES: NO KNOWN DRUG ALLERGIES. MEDICATIONS: See from the list. REVIEW OF SYSTEMS: Shortness of breath on minimal exercise, dizziness, weakness. PHYSICAL EXAMINATION GENERAL: He is an elderly male patient lying in bed, not in acute distress. VITAL SIGNS: Temperature 99, pulse rate 88, respirations 16, blood pressure 110/70. HEENT: Normocephalic, atraumatic. No JVD. Marked pallor. LUNGS: Bilateral equal air entry with rales present. HEART: S1 and S2 regular. A systolic murmur is present. ABDOMEN: Soft. Bowel sounds are present. NEUROLOGIC: Examination is nonfocal. No neurologic deficit. ADMISSION IMPRESSION AND DIAGNOSIS: Severe anemia in patient with severe congestive heart failure, chronic obstructive pulmonary disease, chronic renal failure. PLAN: The patient will be admitted under observation. The patient will get 2 units of packed RBCs and Lasix. The patient needs cardiac monitoring during the blood transfusion and after the blood transfusion for fluid overload. The patient had GI and cardiology consultations also done. DISCHARGE NOTE: The patient had 2 units of packed RBCs overnight. The patient was observed in the hospital, and the patient is stable. The patient wants to go home, so further treatment will be continued as an outpatient with GI and cardiology followup. The patient is not actively bleeding from any site, so the patient will be discharged home. Job#: [id number]
[2018-07-18] MEDS ORDERED: INSULIN DETEMIR 100 UNIT/ML PEN SQ SCH (21:00)
== END 2018-07-18 09:58 | disposition home or self-care (01) ==
LOC: ER 12:45 → ERHOLD 14:59 → INTOOBSV 14:59 → MED/SURG 17:02
PROVIDERS: ADMIT Internal Medicine; ATTEND Internal Medicine
DX: D64.9 Anemia, unspecified (principal); R53.1 Weakness; I13.0 Hypertensive heart and chronic kidney disease with heart failure and stage 1 through stage 4 chronic kidney disease, or unspecified chronic kidney disease; I50.40 Unspecified combined systolic (congestive) and diastolic (congestive) heart failure; J44.9 Chronic obstructive pulmonary disease, unspecified; E11.22 Type 2 diabetes mellitus with diabetic chronic kidney disease; N18.4 Chronic kidney disease, stage 4 (severe); Z95.810 Presence of automatic (implantable) cardiac defibrillator; Z87.891 Personal history of nicotine dependence
CPT/HCPCS: 36415 ×2; 36430; 71045; 80053 ×2; 82550 ×2; 82553 ×2; 82948; 83880; 84484 ×2; 85025 ×2; 85610; 85730; 86850; 86900; 86920; 93005; 99284; G0378 ×2; J1650; J1817; J1940 ×2; J7050 ×2; J7799; P9016 ×2; S0164

== ENCOUNTER → 2018-08-29 | Outpatient (CLI) | payer MEDICARE ==
[~2018-08-29] MED LIST changes: +DIATRIZOATE MEGL/DIATRIZOA SOD 30 ML BTL PO ONE; +SODIUM CHLORIDE 0.9% 500ML 500 ML ONE
[2018-08-29 14:02] LABS: CREATININE, SERUM 1.69 mg/dL (0.72-1.25)
--- NOTE | 2018-08-29 15:25 | Diagnostic Imaging Report ---
EXAMINATION: CT of the abdomen and pelvis without contrast. TECHNIQUE: Spiral CT images of the abdomen and pelvis were performed from the lung bases to the lesser trochanters. No intravenous contrast was given per low GFR. Oral contrast was administered. Coronal and sagittal reformatted images were obtained. COMPARISON: Report from an examination from December 28, 2016 was available for review. No images were available. CLINICAL HISTORY:Abdominal pain, concern for diverticulitis DISCUSSION: ABSENCE OF INTRAVENOUS CONTRAST DECREASES SENSITIVITY FOR DETECTION OF FOCAL LESIONS AND VASCULAR PATHOLOGY. ABDOMEN/PELVIS: LOWER THORAX: 1.8 cm spiculated opacity with architectural distortion immediately adjacent to the left posterior pericardium seen on series 2 image 3. 1.5 cm left lower lobe nodule. 1.2 and 0.8 cm right lower lobe nodules with architectural distortion. Right middle lobe linear opacity likely reflective of fibrosis. Cardiac device leads partially visualized. Cardiomegaly. HEPATOBILIARY:2.2 cm lesion in segment 6, average internal attenuation 0-5 Hounsfield units likely representing a cyst. 1.9 cm low-attenuation lesion in segment 8/7, also average internal attenuation less than 20 Hounsfield units, likely a simple cyst. Additional subcentimeter hypoattenuating foci elsewhere within the liver too small to further characterize but likely to represent additional small cysts. No intrahepatic biliary ductal dilatation. Gallbladder is unremarkable. SPLEEN: No splenomegaly. PANCREAS: No focal masses or ductal dilatation. ADRENALS: Bilateral adrenal fullness without discrete nodule. KIDNEYS/URETERS: Atherosclerotic calcifications throughout the renal kusum. 7 mm calculus right upper pole. Additional punctate bilateral calcifications in the region of the calyces may represent nonobstructing renal calculi or vascular calcifications. No hydronephrosis. No gross renal mass lesion. PELVIC ORGANS/BLADDER: Urinary bladder is well distended and unremarkable. Coarse prostatic calcifications. Multiple pelvic phleboliths. PERITONEUM/RETROPERITONEUM: No ascites. No pneumoperitoneum. LYMPH NODES: No pelvic sidewall, retroperitoneal, or mesenteric lymphadenopathy. VESSELS: Limited evaluation without intravenous contrast. Atherosclerotic calcification of the abdominal aorta without aneurysmal dilatation. GI TRACT: The large bowel shows no evidence of distention or wall thickening. Concentric narrowing at the splenic flexure is likely related to peristalsis. The appendix is normal. Prominence of the gastric rugal folds is related to underdistention. There is no small bowel dilatation to suggest obstruction. BONES AND SOFT TISSUES: No osseous destructive change. Subchondral cystic lesion of the right femoral head. Mild degenerative disc changes and facet arthropathy of the lumbar spine. Probable bone island superior left acetabulum. Fat-containing bilateral inguinal hernias. No additional focal soft tissue abnormalities. IMPRESSION: No acute intra-abdominal or pelvic CT abnormalities. No findings of acute diverticulitis per clinical query. Questionable renal calculi. Atherosclerotic vascular disease. Bilateral lower lobe pulmonary nodules with architectural distortion likely reflective of product or postinflammatory changes. Follow-up CT scan of the chest without contrast in 3 months is suggested to assess for stability. Signed by: Dr. Riaz Hawkins M.D. on 08/29/2018 3:22 PM
== END ==
LOC: CT 13:03
PROVIDERS: ATTEND Internal Medicine
DX: R10.9 Unspecified abdominal pain (principal); K57.92 Diverticulitis of intestine, part unspecified, without perforation or abscess without bleeding
CPT/HCPCS: 36415; 74176; 82565; 84520; J7040; Q9663

== ENCOUNTER 2018-09-17 13:08 | Inpatient (IN) | payer MEDICARE ==
[~2018-09-17] VITALS: Ht 175.3 cm; Wt 86.7 kg
[~2018-09-17 13:08] MED LIST changes: -DIATRIZOATE MEGL/DIATRIZOA SOD 30 ML BTL PO ONE; -SODIUM CHLORIDE 0.9% 500ML 500 ML ONE
--- OUTSIDE RECORDS SUMMARY | 2018-09-17 13:12 | XMS REPORT | Continuity of Care Document ---
Author Author Priya rodolfo [facility] Interface Address Unknown Phone Unavailable Problems Problem Status Onset Date Classification Date Reported Comments Source Discharge Diagnosis: Acute alcohol intoxication 04/22/2016 04/25/2016 [facility] Discharge Diagnosis: Avulsion of skin of forearm 04/22/2016 04/25/2016 [facility] Discharge Diagnosis: Laceration of scalp 04/22/2016 04/25/2016 [facility] Discharge Diagnosis: Facial abrasion 04/22/2016 04/25/2016 [facility] INTOXICATION-FALL Active 04/21/2016 [facility] CHEST PAIN, CHF EXACERBATION Active 05/25/2015 [facility] ABNORMAL LABS Active 05/25/2015 [facility] SHORT OF BREATH Active 11/12/2011 [facility] LEG PAIN Active 08/31/2011 [facility] KNEE PAIN, CELLULITIS Active 08/31/2011 [facility] Acid reflux Active Problem 04/25/2016 [facility] AF - Atrial fibrillation Active Problem 04/25/2016 [facility] Arthritis Active Problem 04/25/2016 [facility] Cardiac pacemaker Active Problem 04/25/2016 [facility] CHF - Congestive heart failure Active Problem 04/25/2016 [facility] Diabetes Resolved Problem 04/25/2016 [facility] DM - Diabetes mellitus Active Problem 04/25/2016 [facility] Enlarged prostate Active Problem 04/25/2016 [facility] FH: Hypercholesterolemia Active Problem 04/25/2016 [facility] Gout Resolved Problem 04/25/2016 [facility] HTN (<span [id number]</span>) Resolved Problem 04/25/2016 [facility] HTN - Hypertension Active Problem 04/25/2016 [facility] Peripheral neuropathy Active Problem 04/25/2016 [facility] Acid reflux Active Problem 11/17/2011 [facility] AF - Atrial fibrillation Active Problem 11/17/2011 [facility] Arthritis Active Problem 11/17/2011 [facility] Cardiac pacemaker Active Problem 11/17/2011 [facility] DM - Diabetes mellitus Active Problem 11/17/2011 [facility] FH: Hypercholesterolemia Active Problem 11/17/2011 [facility] HTN - Hypertension Active Problem 11/17/2011 [facility] Peripheral neuropathy Active Problem 11/17/2011 [facility] CHF - Congestive heart failure Active Problem 11/17/2011 [facility] Enlarged prostate Active Problem 11/17/2011 [facility] SHORTNESS OF BREATH Active [facility] CELLULITIS NOS Active [facility] Medications Medication Details Route Status Patient Instructions Ordering Provider Order Date Source clopidogrel 75 mg, 1 tab, Route: PO, Drug form: TAB, Daily, Dosing Weight 72.727, kg, Start date: 05/27/15 9:00:00, Duration: 30 day, Stop date: 06/25/15 9:00:00Notes: (Same As: Plavix) No Longer Active 05/27/2015 [facility] Spironolactone 25 mg, 1 tab, Route: PO, Drug form: TAB, Daily, Dosing Weight 72.727, kg, Start date: 05/27/15 9:00:00, Duration: 30 day, Stop date: 06/25/15 9:00:00Notes: (Same As: Aldactone) No Longer Active 05/27/2015 [facility] Omeprazole 20 mg, Route: PO, Drug form: DRC, Daily, Dosing Weight 72.727, kg, Start date: 05/27/15 9:00:00, Duration: 30 day, Stop date: 06/25/15 9:00:00 No Longer Active 05/27/2015 [facility] Allopurinol 100 mg, 1 tab, Route: PO, Drug form: TAB, Daily, Dosing Weight 72.727, kg, Start date: 05/27/15 9:00:00, Duration: 30 day, Stop date: 06/25/15 9:00:00Notes: (Same as: Zyloprim) No Longer Active 05/27/2015 [facility] Lantus Route: SUB-Q, Bedtime, Dosing Weight 72.727, kg, Start date: 05/26/15 21:00:00, Duration: 30 day, Stop date: 06/24/15 21:00:00 Inactive 05/27/2015 [facility] Levemir FlexPen 40 unit, 0.4 mL, Route: SUB-Q, Drug form: INJ, Bedtime, Start date: 05/26/15 21:00:00, Duration: 30 day, Stop date: 06/24/15 21:00:00Notes: Same as Levemir Do not hold insulin without contacting prescriber "single patient use only" Inactive 05/27/2015 [facility] Trazodone Hydrochloride 100 MG Oral Tablet 100 mg, 1 tab, Route: PO, Drug form: TAB, Bedtime, Dosing Weight 72.727, kg, Start date: 05/26/15 21:00:00, Duration: 30 day, Stop date: 06/24/15 21:00:00 Inactive 05/27/2015 [facility] gabapentin 600 MG Oral Tablet 600 mg, 1 tab, Route: PO, Drug form: TAB, BID, Dosing Weight 72.727, kg, Start date: 05/26/15 17:00:00, Duration: 30 day, Stop date: 06/25/15 9:00:00 Inactive 05/26/2015 [facility] Furosemide 40 MG Oral Tablet 40 mg, 1 tab, Route: PO, Drug form: TAB, BID, Dosing Weight 72.727, kg, Start date: 05/26/15 17:00:00, Duration: 30 day, Stop date: 06/25/15 9:00:00Notes: (Same as: Lasix) May cause GI upset. Give with food or milk. Inactive 05/26/2015 [facility] Protonix 40 mg, 1 tab, Route: PO, Drug form: ECTAB, Before Dinner, Start date: 05/26/15 16:30:00, Duration: 30 day, Stop date: 06/24/15 16:30:00Notes: Tablet should not be chewed or crushed. (Same as: Protonix) Inactive 05/26/2015 [facility] {21 (Methylprednisolone 4 MG Oral Tablet [Medrol]) } Pack [Medrol Dosepak] See Instructions, PO, Take by mouth as directed on label., X 6 day, # 1 Pack, 0 Refill(s)Special Instructions: Take by mouth as directed on label. Active 05/26/2015 [facility] Aspirin 81 MG Enteric Coated Tablet 81 mg=1 tab, PO, Daily, # 100 tab, 0 Refill(s) Active 05/26/2015 [facility] Solu-Medrol 40 mg, 1 mL, Route: IVP, Drug form: INJ, ONCE, Dosing Weight 72.727, kg, Priority: NOW, Start date: 05/26/15 14:11:00, Stop date: 05/26/15 14:11:00Notes: (Same as:Solu-MEDROL, A-Methapred) Inactive 05/26/2015 [facility] Aspirin 325 MG Oral Tablet 325 mg, 1 tab, Route: PO, Drug form: TAB, Daily, Dosing Weight 72.727, kg, Start date: 05/26/15 14:00:00, Duration: 30 day, Stop date: 06/24/15 14:00:00Notes: Take with food. Inactive 05/26/2015 [facility] Captopril 12.5 mg, 1 tab, Route: PO, Drug form: TAB, TID, Dosing Weight 72.727, kg, Start date: 05/26/15 13:00:00, Duration: 30 day, Stop date: 06/25/15 9:00:00Notes: Give on empty stomach. 1 hour before meal. (Same As: Capoten) Inactive 05/26/2015 [facility] gabapentin 600 MG Oral Tablet 600 mg, 2 cap, Route: PO, Drug form: CAP, BID, Dosing Weight 72.727, kg, Start date: 05/26/15 9:00:00, Duration: 30 day, Stop date: 06/24/15 17:00:00Notes: (Same as: Neurontin) Inactive 05/26/2015 [facility] gabapentin 600 MG Oral Tablet 600 mg, 2 cap, Route: PO, Drug form: CAP, Bedtime, Dosing Weight 72.727, kg, Start date: 05/26/15 1:40:00, Duration: 30 day, Stop date: 06/24/15 21:00:00Notes: (Same as: Neurontin) Inactive 05/26/2015 [facility] Trazodone Hydrochloride 100 MG Oral Tablet 100 mg, 1 tab, Route: PO, Drug form: TAB, Bedtime, Dosing Weight 72.727, kg, Start date: 05/26/15 1:40:00, Duration: 30 day, Stop date: 06/24/15 21:00:00Notes: (Same As: Desyrel) Inactive 05/26/2015 [facility] Insulin, Aspart, Human 4 unit, 0.04 mL, [...] days from Date No Longer Active 05/26/2015 [facility] Glucagon 1 mg, Route: IM, Drug form: PDR/INJ, PRN, Dosing Weight 72.727, kg, PRN Blood Glucose Results, Start date: 05/25/15 22:41:00, Duration: 30 day, Stop date: 06/24/15 22:40:00 No Longer Active 05/26/2015 [facility] Dextrose 50% Syringe 12.5 gm, 25 mL, Route: IVP, Drug Form: INJ, Dosing Weight 72.727, kg, PRN, PRN Blood Glucose Results, Start date: 05/25/15 22:41:00, Duration: 30 day, Stop date: 06/24/15 22:40:00 No Longer Active 05/26/2015 [facility] Lantus 40 units, SUB-Q, Bedtime, 0 Refill(s) Active 05/26/2015 [facility] spironolactone 25 mg oral tablet 25 mg=1 tab, PO, Daily, # 90 tab, 1 Refill(s) Active 05/26/2015 [facility] allopurinol 100 mg oral tablet 100 mg=1 tab, PO, Daily, # 90 tab, 1 Refill(s) Active 05/26/2015 [facility] Furosemide 40 MG Oral Tablet 40 mg=1 tab, PO, BID, # 30 tab, 0 Refill(s) Active 05/26/2015 [facility] clopidogrel 75 mg oral tablet 75 mg=1 tab, PO, Daily, # 30 tab, 0 Refill(s) Active 05/26/2015 [facility] Saline Flush 0.9% 10 ml, Route: IVP, Drug Form: INJ, Dosing Weight 72.727, kg, Q12H, Start date: 05/25/15 21:00:00, Duration: 30 day, Stop date: 06/24/15 9:00:00Notes: (Same as: BD Posiflush) No Longer Active 05/26/2015 [facility] nitroglycerin 0.4 mg sublingual tablet 0.4 mg, 1 tab, Route: SL, Drug form: TAB, Q5Min, PRN Chest Pain, Start date: 05/25/15 20:48:00, Duration: 30 day, Stop date: 06/24/15 20:47:00Notes: (Same as:Nitroquick, Nitrostat) "Do Not Crush" Sublingual tablet No Longer Active 05/26/2015 [facility] atropine 0.5 mg, 5 mL, Route: IVP, Drug form: INJ, PRN, PRN Bradycardia, Start date: 05/25/15 20:48:00, Duration: 30 day, Stop date: 06/24/15 20:47:00 No Longer Active 05/26/2015 [facility] Saline Flush 0.9% 10 ml, Route: IVP, Drug Form: INJ, Dosing Weight 72.727, kg, PRN, PRN Line Flush, Start date: 05/25/15 18:56:00, Duration: 30 day, Stop date: 06/24/15 18:55:00Notes: (Same as: BD Posiflush) No Longer Active 05/25/2015 [facility] Nitroglycerin 0.4 mg, 1 tab, Route: SL, Drug form: TAB, Q5Min, Dosing Weight 72.727, kg, PRN Chest Pain, Start date: 05/25/15 18:56:00, Duration: 3 doses or times, Stop date: Limited # of timesNotes: (Same as:Nitroqu ick, Nitrostat) "Do Not Crush" Sublingual tablet Inactive 05/25/2015 [facility] Lasix 20 mg, 2 mL, Route: IVP, Drug form: INJ, ONCE, Dosing Weight 72.727, kg, Priority: STAT, Start date: 05/25/15 17:16:00, Stop date: 05/25/15 17:16:00Notes: (Same as: Lasix) Inactive 05/25/2015 [facility] Aspirin 325 mg, 1 tab, Route: PO, Drug form: TAB, ONCE, Dosing Weight 72.727, kg, Priority: STAT, Start date: 05/25/15 15:40:00, Stop date: 05/25/15 15:40:00Notes: Take with food. Inactive 05/25/2015 [facility] pneumococcal 23-valent vaccine 0.5 ml, Route: IM, Daily, Start date: 11/16/11 9:00:00, Duration: 1 doses or times, Stop date: 11/16/11 9:00:00 IM No Longer Active SYSTEM 11/16/2011 [facility] Ceftin 500 mg oral tablet 500 mg, 1 tab, PO, BID, 20 tab, Substitution Allowed PO Active Brandi 11/15/2011 [facility] Lasix 40 mg oral tablet 40 mg, 1 tab, PO, Daily, 30 tab, Substitution Allowed, TAB PO Active Brandi 11/15/2011 [facility] Lomotil oral tablet 1 tab, Route: PO, Drug Form: TAB, Q6H, PRN Loose Stools, Start date: 11/14/11 16:26:00, Duration: 30 day, Stop date: 12/14/11 16:25:00 PO No Longer Active [facility] 11/14/2011 [facility] captopril 12.5 mg, 1 tab, Route: PO, Drug form: TAB, Q12H, Start date: 11/14/11 9:00:00, Duration: 30 day, Stop date: 12/13/11 21:00:00 PO No Longer Active [facility] 11/14/2011 [facility] Klor-Con 10 20 mEq, 1 tab, Route: PO, Drug form: ERTAB, Daily, Start date: 11/14/11 9:00:00, Duration: 30 day, Stop date: 12/13/11 9:00:00 PO No Longer Active [facility]i 11/14/2011 [facility] tamsulosin 0.4 mg, 1 cap, Route: PO, Drug form: CAP, Daily, Start date: 11/14/11 9:00:00, Duration: 30 day, Stop date: 12/13/11 9:00:00 PO No Longer Active [facility]i 11/14/2011 [facility] lisinopril 5 mg, 1 tab, Route: PO, Drug form: TAB, Daily, Start date: 11/14/11 9:00:00, Duration: 30 day, Stop date: 12/13/11 9:00:00 PO No Longer Active [facility]i 11/14/2011 [facility] captopril Route: PO, Daily, Start date: 11/14/11 9:00:00, Duration: 30 day, Stop date: 12/13/11 9:00:00 PO No Longer Active [facility]i 11/14/2011 [facility] Lasix 40 mg, 4 mL, Route: IVP, Drug form: INJ, Daily, Start date: 11/14/11 9:00:00, Duration: 30 day, Stop date: 12/13/11 9:00:00 IVP No Longer Active Brandi 11/14/2011 [facility] Nexium 40 mg, Route: PO, Daily, Start date: 11/14/11 9:00:00, Duration: 30 day, Stop date: 12/13/11 9:00:00 PO No Longer Active Brandi 11/14/2011 [facility] digoxin 125 mcg (0.125 mg) oral tablet 0.125 mg, 1 tab, Route: PO, Drug form: TAB, Daily, Start date: 11/14/11 6:00:00, Duration: 30 day, Stop date: 12/13/11 6:00:00 PO No Longer Active Brandi 11/14/2011 [facility] Cipro 400 mg, 200 mL, Route: IVPB, Drug form: INJ, Q12H, Start date: 11/13/11 21:00:00, Duration: 30 day, Stop date: 12/13/11 9:00:00 IVPB No Longer Active Brandi 11/14/2011 [facility] trazodone 100 mg oral tablet 100 mg, 2 tab, Route: PO, Drug form: TAB, Bedtime, Start date: 11/13/11 21:00:00, Duration: 30 day, Stop date: 12/12/11 21:00:00 PO No Longer Active [facility]i 11/14/2011 [facility] Coreg 3.125 mg, 1 tab, Route: PO, Drug form: TAB, Q12H, Start date: 11/13/11 21:00:00, Duration: 30 day, Stop date: 12/13/11 9:00:00 PO No Longer Active [facility] 11/14/2011 [facility] cefepime 1 gm, Route: IVPB, Q12H, Start date: 11/13/11 20:00:00, Duration: 30 day, Stop date: 12/13/11 8:00:00 IVPB No Longer Active [facility] 11/14/2011 [facility] metFORmin 500 mg oral tablet 500 mg, 1 tab, Route: PO, Drug form: TAB, BID, Start date: 11/13/11 17:00:00, Duration: 30 day, Stop date: 12/13/11 9:00:00 PO No Longer Active [facility] 11/13/2011 [facility] gabapentin 300 mg oral capsule 600 mg, 2 cap, Route: PO, Drug form: CAP, BID, Start date: 11/13/11 17:00:00, Duration: 30 day, Stop date: 12/13/11 9:00:00 PO No Longer Active [facility]i 11/13/2011 [facility] nitroglycerin 0.4 mg sublingual tablet 0.4 mg, 1 tab, Route: SL, Drug form: TAB, Q5Min, PRN Chest Pain, Start date: 11/13/11 15:15:00, Duration: 30 day, Stop date: 12/13/11 16:14:00 SL No Longer Active Brandi 11/13/2011 [facility] atropine 0.5 mg, 5 mL, Route: IVP, Drug form: INJ, PRN, PRN Bradycardia, Start date: 11/13/11 15:15:00, Duration: 30 day, Stop date: 12/13/11 16:14:00 IVP No Longer Active [facility]i 11/13/2011 [facility] Protonix 40 mg, 1 tab, Route: PO, Drug form: ECTAB, Before Dinner, Start date: 11/13/11 13:30:00, Duration: 30 day, Stop date: 12/12/11 16:30:00 PO No Longer Active Brandi 11/13/2011 [facility] aspirin 81 mg tablet, chewable 81 mg, 1 tab, Route: PO, Drug form: CHEWTAB, Every Other Day, Start date: 11/13/11 13:30:00, Duration: 30 day, Stop date: 12/13/11 9:00:00 PO No Longer Active [facility] 11/13/2011 [facility] Lovenox 40 mg, 0.4 mL, Route: SUB-Q, Drug form: INJ, [id number], Start date: 11/13/11 13:00:00, Duration: 30 day, Stop date: 12/12/11 13:00:00 SUB-Q No Longer Active [facility]i 11/13/2011 [facility] insulin aspart 3 unit, 0.03 mL, Route: SUB-Q, Drug form: SOLN, TID-Before Meals, PRN Blood Glucose Results, Start date: 11/13/11 12:55:00, Duration: 30 day, Stop date: 12/13/11 12:54:00 SUB-Q No Longer Active [facility]i 11/13/2011 [facility] Dextrose 50% Syringe 25 gm, 50 mL, Route: IVP, Drug Form: INJ, PRN, PRN Blood Glucose Results, Start date: 11/13/11 12:55:00, Duration: 30 day, Stop date: 12/13/11 13:54:00 IVP No Longer Active [facility] 11/13/2011 [facility] glucagon 1 mg, Route: IM, Drug form: PDR/INJ, PRN, PRN Blood Glucose Results, Start date: 11/13/11 12:55:00, Duration: 30 day, Stop date: 12/13/11 13:54:00 IM No Longer Active [facility]i 11/13/2011 [facility] nitroglycerin 2% ointment 1 inch, Route: TOP, Drug Form: OINT, Q6H, Start date: 11/13/11 12:00:00, Duration: 30 day, Stop date: 12/13/11 6:00:00 TOP No Longer Active [facility] 11/13/2011 [facility] [place] 10/325 oral tablet 1 tab, Route: PO, Drug Form: TAB, ONCE, PRN Pain, Start date: 11/13/11 11:35:00, Stop date: 12/13/11 11:34:00 PO No Longer Active [facility] 11/13/2011 [facility] furosemide 40 mg, Route: IVP, ONCE, Priority: STAT, Start date: 11/13/11 9:22:00, Stop date: 11/13/11 9:22:00 IVP No Longer Active [facility] 11/13/2011 [facility] ciprofloxacin 400 mg, 200 mL, Route: IVPB, Drug form: INJ, ONCE, Priority: STAT, Start date: 11/13/11 8:10:00, Stop date: 11/13/11 8:10:00 IVPB No Longer Active [facility] 11/13/2011 [facility] cefepime 2 gm, Route: IVPB, ONCE, Priority: STAT, Start date: 11/13/11 8:09:00, Stop date: 11/13/11 8:09:00 IVPB No Longer Active [facility] 11/13/2011 [facility] clindamycin 300 mg oral capsule 300 mg, 1 cap, PO, Q6H, 56 cap, Substitution Allowed, CAP PO Active Brandi 09/02/2011 [facility] Levemir FlexPen 17 unit, 0.17 mL, Route: SUB-Q, Drug form: INJ, BID, Start date: 09/01/11 17:00:00, Duration: 30 day, Stop date: 10/01/11 9:00:00 SUB-Q No Longer Active Brandi 09/01/2011 [facility] Protonix 40 mg, 1 tab, Route: PO, Drug form: ECTAB, Before Dinner, Start date: 09/01/11 16:30:00, Duration: 30 day, Stop date: 09/30/11 16:30:00 PO No Longer Active Brandi 09/01/2011 [facility] captopril 12.5 mg, 1 tab, Route: PO, Drug form: TAB, Daily, Start date: 09/01/11 10:13:00, Duration: 30 day, Stop date: 10/01/11 9:00:00 PO No Longer Active Brandi 09/01/2011 [facility] vancomycin 1 gm, 250 mL, Route: IVPB, Drug form: INJ, [id number], Start date: 09/01/11 10:00:00, Duration: 30 day, Stop date: 09/30/11 22:00:00 IVPB No Longer Active [facility] 09/01/2011 [facility] influenza virus vaccine, inactivated 0.5 ml, Route: IM, Drug Form: INJ, Start date: 09/01/11 9:00:00, Stop date: 09/01/11 9:00:00 IM No Longer Active [facility] 09/01/2011 [facility] Lanoxin 0.125 mg, 1 tab, Route: PO, Drug form: TAB, Daily, Start date: 09/01/11 9:00:00, Duration: 30 day, Stop date: 09/30/11 9:00:00 PO No Longer Active [facility]i 09/01/2011 [facility] Flomax 0.4 mg, 1 cap, Route: PO, Drug form: CAP, Daily, Start date: 09/01/11 9:00:00, Duration: 30 day, Stop date: 09/30/11 9:00:00 PO No Longer Active Brandi 09/01/2011 [facility] aspirin 81 mg tablet, chewable 81 mg, 1 tab, Route: CHEW, Drug form: CHEWTAB, Every Other Day, Start date: 09/01/11 9:00:00, Duration: 30 day, Stop date: 09/29/11 9:00:00 CHEW No Longer Active [facility]i 09/01/2011 [facility] Nexium 40 mg, Route: PO, Daily, Start date: 09/01/11 9:00:00, Duration: 30 day, Stop date: 09/30/11 9:00:00 PO No Longer Active [facility]i 09/01/2011 [facility] Glucophage 500 mg, 1 tab, Route: PO, Drug form: TAB, BID- Meals, Start date: 09/01/11 8:00:00, Duration: 30 day, Stop date: 09/30/11 17:00:00 PO No Longer Active Brandi 09/01/2011 [facility] clindamycin 600 mg, 4 mL, Route: IVPB, [id number], Priority: Routine, Start date: 09/01/11 0:00:00, Duration: 30 day, Stop date: 09/30/11 18:00:00 IVPB No Longer Active Brandi 09/01/2011 [facility] Neurontin 600 mg, 2 cap, Route: PO, Drug form: CAP, BID, Start date: 08/31/11 22:30:00, Duration: 30 day, Stop date: 09/30/11 17:00:00 PO No Longer Active Brandi 09/01/2011 [facility] trazodone 100 mg oral tablet 100 mg, 1 tab, Route: PO, Drug form: TAB, Bedtime, Start date: 08/31/11 22:30:00, Duration: 30 day, Stop date: 09/30/11 21:00:00 PO No Longer Active Brandi 09/01/2011 [facility] ondansetron 4 mg, 2 mL, Route: IVP, Drug form: INJ, Q6H, PRN Nausea & Vomiting, Priority: Routine, Start date: 08/31/11 20:02:00, Duration: 30 day, Stop date: 09/30/11 20:01:00 IVP No Longer Active [facility] 09/01/2011 [facility] morphine Sulfate 4 mg, 2 mL, Route: IVP, Drug form: INJ, Q6H, PRN Pain, Priority: Routine, Start date: 08/31/11 20:02:00, Duration: 30 day, Stop date: 09/30/11 20:01:00 IVP No Longer Active [facility] 09/01/2011 [facility] Dilaudid Route: IV, ONCE, Start date: 08/31/11 18:36:00, Stop date: 08/31/11 18:36:00 IV No Longer Active [facility] 09/01/2011 [facility] morphine Sulfate 4 mg, Route: IVP, ONCE, Start date: 08/31/11 18:23:00, Stop date: 08/31/11 18:23:00 IVP No Longer Active [facility] 09/01/2011 [facility] Lovenox 40 mg, 0.4 mL, Route: SUB-Q, Drug form: INJ, [id number], Start date: 08/31/11 18:00:00, Duration: 30 day, Stop date: 09/29/11 18:00:00 SUB-Q No Longer Active [facility] 09/01/2011 [facility] vancomycin 1 gm, 250 mL, Route: IVPB, Drug form: INJ, Q24H, Start date: 08/31/11 17:00:00, Stop date: 09/29/11 17:00:00 IVPB No Longer Active [facility] 08/31/2011 [facility] metFORmin 500 mg oral tablet 500 mg, 1 tab, PO, BID, 30 tab, Substitution Allowed PO Active 08/31/2011 [facility] captopril unknown, PO, Daily, Substitution Allowed PO Active 08/31/2011 [facility] aspirin 81 mg tablet, chewable 81 mg, 1 tab, PO, Every Other Day, Substitution Allowed PO Active 08/31/2011 [facility] Tylenol 650 mg, 2 tab, Route: PO, Drug form: TAB, Q4H, PRN Fever, Start date: 08/31/11 16:21:00, Duration: 30 day, Stop date: 09/30/11 16:20:00 PO No Longer Active [facility] 08/31/2011 [facility] glucagon 1 mg, Route: IM, Drug form: PDR/INJ, PRN, PRN Blood Glucose Results, Start date: 08/31/11 16:16:00, Duration: 30 day, Stop date: 09/30/11 16:15:00 IM No Longer Active [facility] 08/31/2011 [facility] insulin aspart 3 unit, 0.03 mL, Route: SUB-Q, Drug form: SOLN, Bedtime, PRN Blood Glucose Results, Start date: 08/31/11 16:16:00, Duration: 30 day, Stop date: 09/30/11 16:15:00 SUB-Q No Longer Active [facility] 08/31/2011 [facility] Dextrose 50% Syringe 12.5 gm, 25 mL, Route: IVP, Drug Form: INJ, PRN, PRN Blood Glucose Results, Start date: 08/31/11 16:16:00, Duration: 30 day, Stop date: 09/30/11 16:15:00 IVP No Longer Active [facility] 08/31/2011 [facility] morphine Sulfate 4 mg, 2 mL, Route: IVP, Drug form: INJ, ONCE, Start date: 08/31/11 16:15:00, Stop date: 08/31/11 16:15:00 IVP No Longer Active [facility] 08/31/2011 [facility] clindamycin 600 mg, 4 mL, Route: IVPB, Drug form: INJ, ONCE, Priority: STAT, Start date: 08/31/11 12:07:00, Stop date: 08/31/11 12:07:00 IVPB No Longer Active [facility] 08/31/2011 [facility] ondansetron 4 mg, 2 mL, Route: IVP, Drug form: INJ, ONCE, Priority: STAT, Start date: 08/31/11 12:07:00, Stop date: 08/31/11 12:07:00 IVP No Longer Active [facility] 08/31/2011 [facility] morphine Sulfate 4 mg, 2 mL, Route: IVP, Drug form: INJ, ONCE, Priority: STAT, Start date: 08/31/11 12:07:00, Stop date: 08/31/11 12:07:00 IVP No Longer Active [facility] 08/31/2011 [facility] Allergies, Adverse Reactions, Alerts Substance Category Reaction Severity Reaction type Status Date Reported Comments Source Immunizations Immunization Date Given Site Status Last Updated Comments Source influenza virus vaccine, inactivated 09/01/2011 Not Given Mel[facility] Results Order Name Results Value Reference Range Date Interpretation Comments Source Spine cervical wo contrast CT Spine cervical wo contrast CT Patient Name: ELENO ROBERT : 1945; Age: 70 years y/o Male MR: [id number] Study: Spine cervical wo contrast CT 04/22/2016 [...] Luis Lowry MD 04/22/16 01:41 FINAL REPORT [facility] Brain wo contrast CT Brain wo contrast CT Patient Name: ELENO ROBERT : 1945; Age: 70 years y/o Male MR: [id number] Study: Brain wo contrast CT 04/21/2016 11:48 [...] ENZYMES Troponin-I null 0.00 - 0.40 05/25/2015 [facility] CARDIAC ENZYMES CK MB 1.0 ng/mL 0.5 - 3.6 05/25/2015 [facility] CARDIAC ENZYMES BNP 782 pg/mL <=100 pg/mL 05/25/2015 [facility] CHEM PANEL eGFR 35 mL/min/1.73m2 05/25/2015 Result [...] should be multiplied by the estimated BMI. [facility] CHEM PANEL BUN 30 mg/dL 7 - 22 05/25/2015 [facility] CHEM PANEL Total Protein 8.1 g/dL 6.4 - 8.4 05/25/2015 [facility] CHEM PANEL Calcium Lvl 9.2 mg/dL 8.5 - 10.5 05/25/2015 [facility] CHEM PANEL CO2 28 meq/L 24 - 32 05/25/2015 [facility] CHEM PANEL Creatinine Lvl 1.9 mg/dL 0.5 - 1.4 05/25/2015 [facility] CHEM PANEL Glucose Lvl 99 mg/dL 70 - 99 05/25/2015 [facility] CHEM PANEL Bili Total 0.8 mg/dL 0.2 - 1.3 05/25/2015 [facility] CHEM PANEL AST 11 unit/L 0 - 37 05/25/2015 [facility] CHEM PANEL Alk Phos 95 unit/L 39 - 136 05/25/2015 [facility] CHEM PANEL Albumin Lvl 4.0 g/dL 3.5 - 5.0 05/25/2015 [facility] CHEM PANEL ALT 19 unit/L 0 - 65 05/25/2015 [facility] CHEM PANEL Sodium Lvl 135 meq/L 135 - 145 05/25/2015 [facility] CHEM PANEL Chloride Lvl 101 meq/L 95 - 109 05/25/2015 [facility] CHEM PANEL Potassium Lvl 3.8 meq/L 3.5 - 5.1 05/25/2015 [facility] CHEM PANEL A/G Ratio 1.0 0.7 - 1.6 05/25/2015 [facility] CHEM PANEL Globulin 4.1 g/dL 2.0 - 4.0 05/25/2015 [facility] CHEM PANEL AGAP 9.8 meq/L 10.0 - 20.0 05/25/2015 [facility] CHEM PANEL B/C Ratio 16 6 - 25 05/25/2015 [facility] HEMATOLOGY INR 0.90 0.85 - 1.17 05/25/2015 [facility] HEMATOLOGY PTT 27.4 s 22.9 - 35.8 05/25/2015 [facility] HEMATOLOGY PT 12.4 s 12.0 - 14.7 05/25/2015 [facility] HEMATOLOGY MCH 26.0 pg 27.0 - 31.0 05/25/2015 [facility] HEMATOLOGY RDW 15.9 % 11.5 - 14.5 05/25/2015 [facility] MCHC 31.4 g/dL 32.0 - 36.0 05/25/2015 [facility] HEMATOLOGY WBC 8.4 K/CMM 3.7 - 10.4 05/25/2015 [facility] HEMATOLOGY RBC 4.14 M/CMM 4.70 - 6.10 05/25/2015 [facility] HEMATOLOGY MCV 82.9 fL 80.0 - 94.0 05/25/2015 [facility] HEMATOLOGY Hgb 10.8 g/dL 14.0 - 18.0 05/25/2015 [facility] HEMATOLOGY Hct 34.3 % 42.0 - 54.0 05/25/2015 [facility] HEMATOLOGY Platelet 213 K/CMM 133 - 450 05/25/2015 [facility] HEMATOLOGY MPV 10.3 fL 7.4 - 10.4 05/25/2015 [facility] HEMATOLOGY Lymphocytes # 1.6 K/CMM 1.0 - 5.5 05/25/2015 [facility] HEMATOLOGY Segs-Bands # 5.9 K/CMM 1.5 - 8.1 05/25/2015 [facility] HEMATOLOGY Basophils # 0.1 K/CMM 0.0 - 0.2 05/25/2015 [facility] HEMATOLOGY Basophils 1.0 % 0.0 - 1.0 05/25/2015 [facility] HEMATOLOGY Monocytes # 0.6 K/CMM 0.0 - 0.8 05/25/2015 [facility] Eosinophils # 0.1 K/CMM 0.0 - 0.5 05/25/2015 [facility] HEMATOLOGY Segs 70.1 % 45.0 - 75.0 05/25/2015 [facility] HEMATOLOGY Monocytes 7.6 % 2.0 - 12.0 05/25/2015 [facility] HEMATOLOGY Eosinophils 1.8 % 0.0 - 4.0 05/25/2015 [facility] Lymphocytes 19.5 % 20.0 - 40.0 05/25/2015 [facility] Chest/Abdomen/Pelvis wo IV contrast CT Chest/Abdomen/Pelvis wo [...] Marcelle Khan MD 05/25/15 18:23 FINAL REPORT [facility] 2 views DX Chest 2 views DX [...] pacemaker/AICD. Coding: Chest 2 views CPT Code: 52325 SL: 13 Rowdy Gardner M.D. 05/25/2015 - - Read by: Rowdy Gardner MD Dictated Date/time: 05/25/15 16:07 Electronically Signed by: Rowdy Gardner MD 05/25/15 16:13 FINAL REPORT [facility] BEDSIDE GLUCOSE TESTING Comment1 Notify RN/ 11/15/2011 NA [facility] BEDSIDE GLUCOSE TESTING Gluc POC Lifscn 201 mg/dL 65 - 110 11/15/2011 [place] 1Interpretive Data: Upper Reportable Limit: 200 mg/dL. [facility] BEDSIDE GLUCOSE TESTING Comment1 Notify BARBARA 11/15/2011 NA [facility] BEDSIDE GLUCOSE TESTING Gluc POC Lifscn 175 mg/dL 65 - 110 11/15/2011 [place] 2Interpretive Data: Upper Reportable Limit: 200 mg/dL. [facility] BEDSIDE GLUCOSE TESTING Gluc POC Lifscn 220 mg/dL 65 - 110 11/15/2011 [place] 3Interpretive Data: Upper Reportable Limit: 200 mg/dL. [facility] BEDSIDE GLUCOSE TESTING Comment1 Notify BARBARA 11/15/2011 NA [facility] CHEMISTRY Creatinine Lvl 1.3 mg/dL 0.5 - 1.4 11/14/2011 Normal [facility] CHEMISTRY Calcium Lvl 8.8 mg/dL 8.5 - 10.5 11/14/2011 Normal [facility] CHEMISTRY Sodium Lvl 145 meq/L 135 - 145 11/14/2011 Normal [facility] CHEMISTRY Potassium Lvl 3.9 meq/L 3.5 - 5.1 11/14/2011 Normal [facility] CHEMISTRY Chloride Lvl 105 meq/L 95 - 109 11/14/2011 Normal [facility] CHEMISTRY CO2 31 meq/L 24 - 32 11/14/2011 Normal [facility] CHEMISTRY Glucose Lvl 143 mg/dL 11/14/2011 NA 4Interpretive Data: Reference Ranges : 0 - 7 days : 41 - 90 mg/dL7 days - 150 yrs : 70 - 99 mg/dL (fasting), based on the clinical recommendations of the [place] [employer]. [facility] CHEMISTRY BUN 13 mg/dL 7 - 22 11/14/2011 Normal [facility] CHEMISTRY AGAP 12.9 meq/L 10.0 - 20.0 11/14/2011 Normal [facility] HEMATOLOGY WBC 8.1 K/CMM 3.7 - 10.4 11/14/2011 Normal [facility] HEMATOLOGY RBC 3.33 M/CMM 4.70 - 6.10 11/14/2011 LOW [facility] HEMATOLOGY MCV 88.1 fL 80.0 - 94.0 11/14/2011 Normal [facility] HEMATOLOGY Hct 29.3 % 42.0 - 54.0 11/14/2011 LOW [facility] HEMATOLOGY Hgb 9.4 g/dL 14.0 - 18.0 11/14/2011 LOW [facility] HEMATOLOGY MCH 28.2 pg 27.0 - 31.0 11/14/2011 Normal [facility] HEMATOLOGY MCHC 32.0 g/dL 32.0 - 36.0 11/14/2011 Normal [facility] HEMATOLOGY MPV 10.1 fL 7.4 - 10.4 11/14/2011 Normal [facility] HEMATOLOGY Platelet 242 K/CMM 133 - 450 11/14/2011 Normal [facility] HEMATOLOGY RDW 15.4 % 11.5 - 14.5 11/14/2011 HI [facility] HEMATOLOGY Basophils # 0.1 K/CMM 0.0 - 0.2 11/14/2011 Normal [facility] HEMATOLOGY Eosinophils # 0.2 K/CMM 0.0 - 0.5 11/14/2011 Normal [facility] HEMATOLOGY Monocytes # 0.8 K/CMM 0.0 - 0.8 11/14/2011 Normal [facility] HEMATOLOGY Lymphocytes # 1.9 K/CMM 1.0 - 5.5 11/14/2011 Normal [facility] HEMATOLOGY Segs-Bands # 5.1 K/CMM 1.5 - 8.1 11/14/2011 Normal [facility] HEMATOLOGY Eosinophils 2.8 % 0.0 - 4.0 11/14/2011 Normal [facility] HEMATOLOGY Basophils 0.6 % 0.0 - 1.0 11/14/2011 Normal [facility] HEMATOLOGY Segs 63.6 % 45.0 - 75.0 11/14/2011 Normal [facility] HEMATOLOGY Lymphocytes 23.3 % 20.0 - 40.0 11/14/2011 Normal [facility] HEMATOLOGY Monocytes 9.7 % 2.0 - 12.0 11/14/2011 Normal [facility] URINALYSIS UA Nitrite Negative (11/13/2011 08:35:00) Negative 11/13/2011 Normal [facility] URINALYSIS UA Leuk Est Negative (11/13/2011 08:35:00) Negative 11/13/2011 Normal [facility] URINALYSIS UA Urobilinogen 0.2 EU/dL 0.1 - 1.0 11/13/2011 Normal [facility] URINALYSIS UA Bili Negative *NA* (11/13/2011 08:35:00) Negative 11/13/2011 NA [facility] URINALYSIS UA Blood Trace *ABN* (11/13/2011 08:35:00) Negative 11/13/2011 ABN [facility] URINALYSIS UA Ketones Negative *NA* (11/13/2011 08:35:00) Negative 11/13/2011 NA [facility] URINALYSIS UA Protein 100 mg/dL *ABN* (11/13/2011 08:35:00) Negative 11/13/2011 ABN [facility] URINALYSIS UA pH 7.0 5.0 - 8.0 11/13/2011 Normal [facility] URINALYSIS UA Glucose 500 mg/dL *ABN* (11/13/2011 08:35:00) Negative 11/13/2011 ABN [facility] URINALYSIS UA Turbidity Clear (11/13/2011 08:35:00) Clear 11/13/2011 Normal [facility] URINALYSIS UA Spec Grav 1.025 <=1.030 11/13/2011 Normal [facility] URINALYSIS UA Color Yellow *NA* (11/13/2011 08:35:00) Yellow 11/13/2011 NA [facility] URINALYSIS UA RBC None Seen (11/13/2011 08:35:00) 0 - 2 11/13/2011 Normal [facility] URINALYSIS UA Bacteria None Seen (11/13/2011 08:35:00) None Seen 11/13/2011 Normal [facility] URINALYSIS Micro? Performed (11/13/2011 08:35:00) 11/13/2011 Normal [facility] URINALYSIS UA Sq Epi None Seen (11/13/2011 08:35:00) Few 11/13/2011 Normal [facility] URINALYSIS UA WBC None Seen (11/13/2011 08:35:00) None Seen 11/13/2011 Normal [facility] Microbiology Culture: Blood 11/13/2011 [facility] Microbiology Culture: Blood 11/13/2011 [facility] CHEMISTRY AGAP 14.0 meq/L 10.0 - 20.0 11/13/2011 Normal [facility] CHEMISTRY B/C Ratio 12 6 - 25 11/13/2011 Normal [facility] CHEMISTRY Globulin 3.7 g/dL 2.0 - 4.0 11/13/2011 Normal [facility] CHEMISTRY A/G Ratio 0.9 0.7 - 1.6 11/13/2011 Normal [facility] CHEMISTRY AST 7 U/L 0 - 37 11/13/2011 Normal [facility] CHEMISTRY Bili Total 0.3 mg/dL 0.2 - 1.3 11/13/2011 Normal [facility] CHEMISTRY Alk Phos 89 U/L 39 - 136 11/13/2011 Normal [facility] CHEMISTRY Albumin Lvl 3.3 g/dL 3.5 - 5.0 11/13/2011 LOW [facility] CHEMISTRY ALT 21 U/L 0 - 65 11/13/2011 Normal [facility] CHEMISTRY Total Protein 7.0 g/dL 6.4 - 8.4 11/13/2011 Normal [facility] CHEMISTRY Calcium Lvl 8.8 mg/dL 8.5 - 10.5 11/13/2011 Normal [facility] CHEMISTRY Potassium Lvl 4.0 meq/L 3.5 - 5.1 11/13/2011 Normal [facility] CHEMISTRY Chloride Lvl 107 meq/L 95 - 109 11/13/2011 Normal [facility] CHEMISTRY BUN 14 mg/dL 7 - 22 11/13/2011 Normal [facility] CHEMISTRY CO2 28 meq/L 24 - 32 11/13/2011 Normal [facility] CHEMISTRY Glucose Lvl 192 mg/dL 11/13/2011 NA 5Interpretive Data: Reference Ranges : 0 - 7 days : 41 - 90 mg/dL7 days - 150 yrs : 70 - 99 mg/dL (fasting), based on the clinical recommendations of the [place] [employer]. [facility] CHEMISTRY Creatinine Lvl 1.2 mg/dL 0.5 - 1.4 11/13/2011 Normal [facility] CHEMISTRY Sodium Lvl 145 meq/L 135 - 145 11/13/2011 Normal [facility] CHEMISTRY CK MB 1.2 ng/mL 0.5 - 3.6 11/13/2011 Normal [facility] CHEMISTRY Total CK 69 U/L 12 - 191 11/13/2011 Normal [facility] CHEMISTRY Troponin-I null 0.00 - 0.40 11/13/2011 Normal [facility] CHEMISTRY BNP 1419 pg/mL <=100 11/13/2011 [place] 6Interpretive Data: Elevated results are in line with increasing severity of congestive heart failure. Minor elevations between 100 and 300 may be seen with Myocardial Ischemia, Sodium retaining drugs, and compensated/treated heart failure. [facility] CHEMISTRY Digoxin Lvl 0.8 ng/mL 0.8 - 2.0 11/13/2011 Normal [facility] CHEMISTRY CK MB Index 1.7 0.0 - 2.5 11/13/2011 Normal [facility] HEMATOLOGY MPV 9.9 fL 7.4 - 10.4 11/13/2011 Normal [facility] HEMATOLOGY Platelet 284 K/CMM 133 - 450 11/13/2011 Normal [facility] HEMATOLOGY RDW 15.5 % 11.5 - 14.5 11/13/2011 [facility] HEMATOLOGY MCHC 32.8 g/dL 32.0 - 36.0 11/13/2011 Normal [facility] HEMATOLOGY MCH 28.8 pg 27.0 - 31.0 11/13/2011 Normal [facility] HEMATOLOGY Hgb 10.7 g/dL 14.0 - 18.0 11/13/2011 [facility] HEMATOLOGY RBC 3.72 M/CMM 4.70 - 6.10 11/13/2011 [facility] HEMATOLOGY WBC 13.5 K/CMM 3.7 - 10.4 11/13/2011 [facility] HEMATOLOGY MCV 87.8 fL 80.0 - 94.0 11/13/2011 Normal [facility] HEMATOLOGY Hct 32.7 % 42.0 - 54.0 11/13/2011 [facility] HEMATOLOGY Basophils # 0.1 K/CMM 0.0 - 0.2 11/13/2011 Normal [facility] HEMATOLOGY Eosinophils # 0.2 K/CMM 0.0 - 0.5 11/13/2011 Normal [facility] HEMATOLOGY Monocytes # 0.7 K/CMM 0.0 - 0.8 11/13/2011 Normal [facility] HEMATOLOGY Lymphocytes # 1.5 K/CMM 1.0 - 5.5 11/13/2011 [facility] HEMATOLOGY Segs-Bands # 11.0 K/CMM 1.5 - 8.1 11/13/2011 [facility] HEMATOLOGY Basophils 0.4 % 0.0 - 1.0 11/13/2011 Normal [facility] HEMATOLOGY Monocytes 5.6 % 2.0 - 12.0 11/13/2011 [facility] HEMATOLOGY Lymphocytes 11.1 % 20.0 - 40.0 11/13/2011 [facility] HEMATOLOGY Eosinophils 1.4 % 0.0 - 4.0 11/13/2011 Normal [facility] HEMATOLOGY Segs 81.5 % 45.0 - 75.0 11/13/2011 [facility] BEDSIDE GLUCOSE TESTING Gluc POC Lifscn 193 mg/dL 65 - 110 09/03/2011 [place] 4Interpretive Data: Upper Reportable Limit: 200 mg/dL. [facility] BEDSIDE GLUCOSE TESTING Comment1 Assess patient 09/03/2011 [facility] BEDSIDE GLUCOSE TESTING Comment2 Notify RN/MD 09/03/2011 [facility] BEDSIDE GLUCOSE TESTING Gluc POC Lifscn 166 mg/dL 65 - 110 09/03/2011 [place] 5Interpretive Data: Upper Reportable Limit: 200 mg/dL. [facility] BEDSIDE GLUCOSE TESTING Comment1 Notify NA/ 09/03/2011 NA [facility] BEDSIDE GLUCOSE TESTING Gluc POC Lifscn 166 mg/dL 65 - 110 09/03/2011 [place] 6Interpretive Data: Upper Reportable Limit: 200 mg/dL. [facility] BEDSIDE GLUCOSE TESTING Comment1 Notify NA/ 09/02/2011 NA [facility] CHEMISTRY Calcium Lvl 8.8 mg/dL 8.5 - 10.5 09/02/2011 Normal [facility] CHEMISTRY Chloride Lvl 105 meq/L 95 - 109 09/02/2011 Normal [facility] CHEMISTRY Creatinine Lvl 1.3 mg/dL 0.5 - 1.4 09/02/2011 Normal [facility] CHEMISTRY CO2 25 meq/L 24 - 32 09/02/2011 Normal [facility] CHEMISTRY Potassium Lvl 3.6 meq/L 3.5 - 5.1 09/02/2011 Normal [facility] CHEMISTRY Sodium Lvl 141 meq/L 135 - 145 09/02/2011 Normal [facility] CHEMISTRY BUN 15 mg/dL 7 - 22 09/02/2011 Normal [facility] CHEMISTRY Glucose Lvl 163 mg/dL 09/02/2011 NA 7Interpretive Data: Reference Ranges : 0 - 7 days : 41 - 90 mg/dL7 days - 150 yrs : 70 - 99 mg/dL (fasting), based on the clinical recommendations of the [place] [employer]. [facility] CHEMISTRY AGAP 14.6 meq/L 10.0 - 20.0 09/02/2011 Normal [facility] HEMATOLOGY Basophils # 0.1 K/CMM 0.0 - 0.2 09/02/2011 Normal [facility] HEMATOLOGY Eosinophils # 0.1 K/CMM 0.0 - 0.5 09/02/2011 Normal [facility] HEMATOLOGY Monocytes # 0.9 K/CMM 0.0 - 0.8 09/02/2011 HI [facility] HEMATOLOGY Lymphocytes # 2.0 K/CMM 1.0 - 5.5 09/02/2011 Normal [facility] HEMATOLOGY Segs-Bands # 8.7 K/CMM 1.5 - 8.1 09/02/2011 HI [facility] HEMATOLOGY Basophils 0.8 % 0.0 - 1.0 09/02/2011 Normal [facility] HEMATOLOGY Segs 73.1 % 45.0 - 75.0 09/02/2011 Normal [facility] HEMATOLOGY Lymphocytes 17.0 % 20.0 - 40.0 09/02/2011 LOW [facility] HEMATOLOGY Eosinophils 1.2 % 0.0 - 4.0 09/02/2011 Normal [facility] HEMATOLOGY Monocytes 7.9 % 2.0 - 12.0 09/02/2011 Normal [facility] HEMATOLOGY Platelet 178 K/CMM 133 - 450 09/02/2011 Normal [facility] HEMATOLOGY MCV 91.9 fL 80.0 - 94.0 09/02/2011 Normal [facility] HEMATOLOGY MCH 31.8 pg 27.0 - 31.0 09/02/2011 HI [facility] HEMATOLOGY MCHC 34.6 g/dL 32.0 - 36.0 09/02/2011 Normal [facility] HEMATOLOGY Hct 32.1 % 42.0 - 54.0 09/02/2011 LOW [facility] HEMATOLOGY MPV 10.2 fL 7.4 - 10.4 09/02/2011 Normal [facility] HEMATOLOGY RDW 13.4 % 11.5 - 14.5 09/02/2011 Normal [facility] HEMATOLOGY Hgb 11.1 g/dL 14.0 - 18.0 09/02/2011 LOW [facility] HEMATOLOGY RBC 3.49 M/CMM 4.70 - 6.10 09/02/2011 LOW [facility] HEMATOLOGY WBC 11.9 K/CMM 3.7 - 10.4 09/02/2011 [facility] CHEMISTRY Uric Acid 6.3 mg/dL 3.8 - 8.0 09/01/2011 Normal [facility] HEMATOLOGY Sed Rate 63 mm/h 0 - 15 09/01/2011 [facility] IMMUNOLOGY CRP, High Sensitivity 107.0 mg/L 09/01/2011 NA 10Interpretive Data: Low Risk: <1.0 mg/LAverage Risk: 1.0 - 3.0 mg/LHigh Risk: >3.0 mg/LInflammation: >10.0 mg/L [facility] CHEMISTRY Sodium Lvl 138 meq/L 135 - 145 09/01/2011 Normal [facility] CHEMISTRY Potassium Lvl 4.1 meq/L 3.5 - 5.1 09/01/2011 Normal [facility] CHEMISTRY CO2 24 meq/L 24 - 32 09/01/2011 Normal [facility] CHEMISTRY Chloride Lvl 102 meq/L 95 - 109 09/01/2011 Normal [facility] CHEMISTRY Calcium Lvl 9.2 mg/dL 8.5 - 10.5 09/01/2011 Normal [facility] CHEMISTRY Glucose Lvl 194 mg/dL 09/01/2011 NA 8Interpretive Data: Reference Ranges : 0 - 7 days : 41 - 90 mg/dL7 days - 150 yrs : 70 - 99 mg/dL (fasting), based on the clinical recommendations of the [place] [employer]. [facility] CHEMISTRY Creatinine Lvl 1.2 mg/dL 0.5 - 1.4 09/01/2011 Normal [facility] CHEMISTRY BUN 11 mg/dL 7 - 22 09/01/2011 Normal [facility] CHEMISTRY AGAP 16.1 meq/L 10.0 - 20.0 09/01/2011 Normal [facility] HEMATOLOGY MPV 10.4 fL 7.4 - 10.4 09/01/2011 Normal [facility] HEMATOLOGY Hct 36.2 % 42.0 - 54.0 09/01/2011 LOW [facility] HEMATOLOGY RBC 3.90 M/CMM 4.70 - 6.10 09/01/2011 LOW [facility] HEMATOLOGY Hgb 12.4 g/dL 14.0 - 18.0 09/01/2011 LOW [facility] HEMATOLOGY WBC 11.2 K/CMM 3.7 - 10.4 09/01/2011 HI [facility] HEMATOLOGY Platelet 187 K/CMM 133 - 450 09/01/2011 Normal [facility] HEMATOLOGY MCHC 34.3 g/dL 32.0 - 36.0 09/01/2011 Normal [facility] HEMATOLOGY RDW 13.6 % 11.5 - 14.5 09/01/2011 Normal [facility] HEMATOLOGY MCH 31.9 pg 27.0 - 31.0 09/01/2011 [facility] HEMATOLOGY MCV 92.8 fL 80.0 - 94.0 09/01/2011 Normal [facility] HEMATOLOGY Monocytes # 0.9 K/CMM 0.0 - 0.8 09/01/2011 [facility] HEMATOLOGY Lymphocytes # 2.1 K/CMM 1.0 - 5.5 09/01/2011 Normal [facility] HEMATOLOGY Segs-Bands # 8.0 K/CMM 1.5 - 8.1 09/01/2011 Normal [facility] HEMATOLOGY Eosinophils 1.1 % 0.0 - 4.0 09/01/2011 Normal [facility] HEMATOLOGY Basophils # 0.0 K/CMM 0.0 - 0.2 09/01/2011 Normal [facility] HEMATOLOGY Eosinophils # 0.1 K/CMM 0.0 - 0.5 09/01/2011 Normal [facility] HEMATOLOGY Monocytes 8.4 % 2.0 - 12.0 09/01/2011 Normal [facility] HEMATOLOGY Lymphocytes 18.6 % 20.0 - 40.0 09/01/2011 LOW [facility] HEMATOLOGY Basophils 0.3 % 0.0 - 1.0 09/01/2011 Normal [facility] HEMATOLOGY Segs 71.6 % 45.0 - 75.0 09/01/2011 Normal [facility] Microbiology Culture: Blood 08/31/2011 [facility] Microbiology Culture: Blood 08/31/2011 [facility] BODY FLUIDS Crystal BF Negative (08/31/2011 14:34:00) Negative 08/31/2011 Normal [facility] BODY FLUIDS Crystal BF Type Synovial (08/31/2011 14:34:00) 08/31/2011 Normal [facility] BODY FLUIDS Supernat BF Colorless (08/31/2011 14:34:00) Colorless 08/31/2011 Normal [facility] BODY FLUIDS Color BF Yellow (08/31/2011 14:34:00) Colorless 08/31/2011 Normal [facility] BODY FLUIDS Clarity BF Moderate Cloudy *ABN* (08/31/2011 14:34:00) Clear 08/31/2011 ABN [facility] FLUIDS RBC BF 800 /mm3 08/31/2011 NA 1Interpretive Data: No established reference ranges. [facility] [place] [address] /mm3 08/31/2011 NA 2Interpretive Data: No established reference ranges. [facility] BODY FLUIDS Segs BF 93 % 08/31/2011 NA 3Interpretive Data: No established reference ranges. [facility] BODY FLUIDS Lymph BF 2 % 08/31/2011 NA [facility] FLUIDS Macrophage BF 5 % 08/31/2011 NA [facility] FLUIDS CellCnt BF Type Synovial (08/31/2011 14:34:00) 08/31/2011 Normal [facility] Microbiology Culture: Aspirate/Body Fluid/Tissue 08/31/2011 [facility] CHEMISTRY AGAP 14.5 meq/L 10.0 - 20.0 08/31/2011 Normal [facility] CHEMISTRY B/C Ratio 11 6 - 25 08/31/2011 Normal [facility] CHEMISTRY A/G Ratio 0.8 0.7 - 1.6 08/31/2011 Normal [facility] CHEMISTRY Globulin 4.0 g/dL 2.0 - 4.0 08/31/2011 Normal [facility] CHEMISTRY Bili Total 0.4 mg/dL 0.2 - 1.3 08/31/2011 Normal [facility] CHEMISTRY AST 9 U/L 0 - 37 08/31/2011 Normal [facility] CHEMISTRY ALT 16 U/L 0 - 65 08/31/2011 Normal [facility] CHEMISTRY Total Protein 7.3 g/dL 6.4 - 8.4 08/31/2011 Normal [facility] CHEMISTRY Albumin Lvl 3.3 g/dL 3.5 - 5.0 08/31/2011 LOW [facility] CHEMISTRY Calcium Lvl 9.3 mg/dL 8.5 - 10.5 08/31/2011 Normal [facility] CHEMISTRY CO2 24 meq/L 24 - 32 08/31/2011 Normal [facility] CHEMISTRY Potassium Lvl 4.5 meq/L 3.5 - 5.1 08/31/2011 Normal [facility] CHEMISTRY Chloride Lvl 105 meq/L 95 - 109 08/31/2011 Normal [facility] CHEMISTRY Alk Phos 79 U/L 39 - 136 08/31/2011 Normal [facility] CHEMISTRY Sodium Lvl 139 meq/L 135 - 145 08/31/2011 Normal [facility] CHEMISTRY BUN 15 mg/dL 7 - 22 08/31/2011 Normal [facility] CHEMISTRY Creatinine Lvl 1.4 mg/dL 0.5 - 1.4 08/31/2011 Normal [facility] CHEMISTRY Glucose Lvl 261 mg/dL 08/31/2011 NA 9Interpretive Data: Reference Ranges : 0 - 7 days : 41 - 90 mg/dL7 days - 150 yrs : 70 - 99 mg/dL (fasting), based on the clinical recommendations of the [place] [employer]. [facility] HEMATOLOGY Sed Rate 48 mm/h 0 - 15 08/31/2011 [facility] HEMATOLOGY WBC 13.4 K/CMM 3.7 - 10.4 08/31/2011 [facility] HEMATOLOGY Hgb 12.4 g/dL 14.0 - 18.0 08/31/2011 LOW [facility] HEMATOLOGY RBC 3.87 M/CMM 4.70 - 6.10 08/31/2011 LOW [facility] HEMATOLOGY Hct 35.7 % 42.0 - 54.0 08/31/2011 LOW [facility] HEMATOLOGY Platelet 191 K/CMM 133 - 450 08/31/2011 Normal [facility] HEMATOLOGY RDW 13.8 % 11.5 - 14.5 08/31/2011 Normal [facility] HEMATOLOGY MPV 10.3 fL 7.4 - 10.4 08/31/2011 Normal [facility] HEMATOLOGY MCV 92.1 fL 80.0 - 94.0 08/31/2011 Normal [facility] HEMATOLOGY MCHC 34.7 g/dL 32.0 - 36.0 08/31/2011 Normal [facility] HEMATOLOGY MCH 32.0 pg 27.0 - 31.0 08/31/2011 HI [facility] HEMATOLOGY Monocytes # 0.7 K/CMM 0.0 - 0.8 08/31/2011 Normal [facility] HEMATOLOGY Eosinophils # 0.1 K/CMM 0.0 - 0.5 08/31/2011 Normal [facility] HEMATOLOGY Lymphocytes # 1.2 K/CMM 1.0 - 5.5 08/31/2011 Normal [facility] HEMATOLOGY Polychrom Slight (08/31/2011 12:45:00) None Seen 08/31/2011 Normal [facility] HEMATOLOGY Large Plt Slight *ABN* (08/31/2011 12:45:00) None Seen 08/31/2011 ABN [facility] HEMATOLOGY Basophils # 0.0 K/CMM 0.0 - 0.2 08/31/2011 Normal [facility] HEMATOLOGY Hypochrom Slight (08/31/2011 12:45:00) None Seen 08/31/2011 Normal [facility] HEMATOLOGY Eosinophils 0.6 % 0.0 - 4.0 08/31/2011 Normal [facility] HEMATOLOGY Basophils 0.2 % 0.0 - 1.0 08/31/2011 Normal [facility] HEMATOLOGY Segs-Bands # 11.3 K/CMM 1.5 - 8.1 08/31/2011 [place] [facility] HEMATOLOGY Lymphocytes 9.3 % 20.0 - 40.0 08/31/2011 LOW [facility] HEMATOLOGY Monocytes 5.0 % 2.0 - 12.0 08/31/2011 Normal [facility] HEMATOLOGY Segs 84.9 % 45.0 - 75.0 08/31/2011 [facility] Vital Signs Vital Sign Value Date Comments Source Heart Rate 80 04/22/2016 [facility] Respitory Rate 19 04/22/2016 [facility] Systolic (mm Hg) 135 04/22/2016 [facility] Diastolic (mm Hg) 74 04/22/2016 [facility] Temperature Oral (F) 98 F 04/22/2016 [facility] Respitory Rate 18 04/22/2016 [facility] Heart Rate 82 04/22/2016 [facility] Systolic (mm Hg) 133 04/22/2016 [facility] Diastolic (mm Hg) 75 04/22/2016 [facility] Respitory Rate 18 04/22/2016 [facility] Heart Rate 86 04/22/2016 [facility] Systolic (mm Hg) 130 04/22/2016 [facility] Diastolic (mm Hg) 70 04/22/2016 [facility] Temperature Oral (F) 98 F 04/22/2016 [facility] Temperature Oral (F) 97.7 F 04/22/2016 [facility] Height 180.34 cm 04/22/2016 [facility] Weight 79.545 04/22/2016 [facility] BMI Calculated 24.46 04/22/2016 [facility] Temperature Oral (F) 98.1 F 05/26/2015 [facility] Systolic (mm Hg) 118 05/26/2015 [facility] Diastolic (mm Hg) 65 05/26/2015 [facility] Respitory Rate 20 05/26/2015 [facility] Heart Rate 80 05/26/2015 [facility] Respitory Rate 18 05/26/2015 [facility] Heart Rate 76 05/26/2015 [facility] Systolic (mm Hg) 134 05/26/2015 [facility] Diastolic (mm Hg) 73 05/26/2015 [facility] Temperature Oral (F) 97.8 F 05/26/2015 [facility] Temperature Oral (F) 98.2 F 05/26/2015 [facility] Respitory Rate 18 05/26/2015 [facility] Heart Rate 70 05/26/2015 [facility] Systolic (mm Hg) 124 05/26/2015 [facility] Diastolic (mm Hg) 76 05/26/2015 [facility] Weight 72.727 05/25/2015 [facility] Height 172.72 cm 05/25/2015 [facility] BMI Calculated 24.38 05/25/2015 [facility] Temperature Oral (F) 97.7 F 11/15/2011 [facility] Heart Rate 80 11/15/2011 [facility] Respitory Rate 18 11/15/2011 [facility] Diastolic (mm Hg) 83 11/15/2011 [facility] Systolic (mm Hg) 128 11/15/2011 [facility] Systolic (mm Hg) 128 11/15/2011 [facility] Diastolic (mm Hg) 70 11/15/2011 [facility] Heart Rate 71 11/15/2011 [facility] Respitory Rate 18 11/15/2011 [facility] Temperature Oral (F) 98.1 F 11/15/2011 [facility] Respitory Rate 18 11/15/2011 [facility] Heart Rate 73 11/15/2011 [facility] Temperature Oral (F) 97.8 F 11/15/2011 [facility] Systolic (mm Hg) 119 11/15/2011 [facility] Diastolic (mm Hg) 71 11/15/2011 [facility] Height 175.26 cm 11/13/2011 [facility] Weight 72.727 11/13/2011 [facility] Temperature Oral (F) 98.1 F 09/03/2011 [facility] Respitory Rate 16 09/03/2011 [facility] Heart Rate 70 09/03/2011 [facility] Systolic (mm Hg) 108 09/03/2011 [facility] Diastolic (mm Hg) 61 09/03/2011 [facility] Heart Rate 79 09/03/2011 [facility] Temperature Oral (F) 98.0 F 09/03/2011 [facility] Respitory Rate 17 09/03/2011 [facility] Diastolic (mm Hg) 60 09/03/2011 [facility] Systolic (mm Hg) 159 09/03/2011 [facility] Diastolic (mm Hg) 81 09/03/2011 [facility] Systolic (mm Hg) 147 09/03/2011 [facility] Respitory Rate 16 09/03/2011 [facility] Heart Rate 75 09/03/2011 [facility] Temperature Oral (F) 98.2 F 09/03/2011 [facility] Weight 70.710 09/01/2011 [facility] Height 175.26 cm 09/01/2011 [facility] Weight 72.727 08/31/2011 [facility] Height 175.26 cm 08/31/2011 [facility] Encounters Location Location Details Encounter Type Encounter Number Reason For Visit Attending Provider ADM Date DC Date Status Source [facility] Inpatient [id number] [facility] BRANID 09/01/2011 09/03/2011 Active [facility] Inpatient [id number] SHORT OF BREATH CECI BRANDI 11/13/2011 11/15/2011 Active [facility] OBS Observation Patient [id number] Donn Dharmesh 05/25/2015 05/26/2015 [facility] Emergency [id number] Lilian Damon 04/22/2016 04/22/2016 [facility] Procedures Procedure Code Date Perfomer Comments Source Amputation<sup>1</sup> [id number] toe [facility] Cardiac pacemaker procedure<sup>2</sup> [id number] 5 years ago [facility] Stent placement [id number] [facility]
[2018-09-17] MEDS ORDERED: ASPIRIN 81 MG CHEW TAB PO STA (13:24)
[2018-09-17 13:54] LABS: BASOPHILS % 0.2 % (0.0-1.0); EOSINOPHILS % 0.1 % (0.0-6.0); HEMATOCRIT 28.1 % (38.2-49.6); HEMOGLOBIN 8.5 g/dL (14.0-18.0); LYMPHOCYTES # (AUTO) 0.3 (1.0-3.2); LYMPHOCYTES % 2.3 % (18.0-39.1); MEAN CORPUSCULAR HEMOGLOBIN 23.7 pg (28-32); MEAN CORPUSCULAR HGB CONC 30.2 g/dL (31-35); MEAN CORPUSCULAR VOLUME 78.5 fL (81-99); MONOCYTES # (AUTO) 0.6 (0.2-0.8); MONOCYTES % 4.7 % (4.4-11.3); NEUTROPHILS # (AUTO) 12.2 (2.1-6.9); NEUTROPHILS % 92.2 % (38.7-80.0); PLATELET COUNT 245 x10e3/uL (140-360); RED BLOOD COUNT 3.58 x10e6/uL (4.3-5.7); RED CELL DISTRIBUTION WIDTH 20.4 % (11.7-14.4)
[2018-09-17 14:08] LABS: CLARITY,URINE HAZY (CLEAR); COLOR,URINE YELLOW (YELLOW); LEUKOCYTE ESTERASE ,URINE NEGATIVE (NEGATIVE); NITRITE,URINE NEGATIVE (NEGATIVE); PROTEIN,URINE DIPSTICK 1+ (NEGATIVE)
[2018-09-17 14:09] LABS: BILIRUBIN,URINE NEGATIVE (NEGATIVE); KETONES,URINE NEGATIVE (NEGATIVE); URINE UROBILINOGEN 0.2 mg/dL (0.2 - 1)
[2018-09-17 14:10] LABS: AMORPHOUS SEDIMENT,URINE FEW (FEW); BACTERIA,URINE FEW /HPF; EPITHELIAL CELLS,URINE FEW /LPF; RBC,URINE 0-5 /HPF (0-5); WBC,URINE (MAN) 0-5 /HPF (0-5)
[2018-09-17 14:12] LABS: INR 0.97; PARTIAL THROMBOPLASTIN TIME 30.8 seconds (23.8-35.5); PROTHROMBIN TIME 13.8 seconds (11.9-14.5)
[2018-09-17 14:22] LABS: ALBUMIN 3.1 g/dL (3.5-5.0); ALBUMIN/GLOBULIN RATIO 0.8 (0.8-2.0); ANION GAP 15.8 mmol/L (8-16); CALCIUM 9.3 mg/dL (8.4-10.2); CREATININE, SERUM 1.65 mg/dL (0.72-1.25); MAGNESIUM 2.1 MG/DL (1.3-2.1); POTASSIUM 3.8 mmol/L (3.5-5.1)
[2018-09-17 14:28] LABS: CREATINE KINASE MB 0.6 ng/mL (0-5.0)
--- NOTE | 2018-09-17 15:49 | Diagnostic Imaging Report ---
EXAMINATION: CHEST SINGLE (NOT PORTABLE) INDICATION: Chest pain on right, cough, shortness of breath. COMPARISON: CT abdomen/pelvis 08/29/18 and chest radiograph 07/18/18. FINDINGS: TUBES and LINES: Left sided AICD device with leads in unchanged position. LUNGS: Lungs are well inflated. There is consolidative opacity in the right lower lung. Right lower lobe lung nodules noted on CT abdomen from 08/29/18 are not well characterized by radiograph. No evidence of pulmonary edema. PLEURA: No pleural effusion or pneumothorax. HEART AND MEDIASTINUM: Mild enlargement of the cardiac silhouette. BONES AND SOFT TISSUES: No acute osseous lesion. Soft tissues are unremarkable. UPPER ABDOMEN: No free air under the diaphragm. IMPRESSION: Consolidation in the right lower lung, likely aspiration or pneumonia. Right lower lobe lung nodules noted on CT abdomen from 08/29/18 are not well characterized by radiograph. A follow-up chest CT in 2 months is suggested to assess for resolution. Mild cardiomegaly and left sided AICD with no evidence of pulmonary edema. Signed by: Dr. Frida Cardoso MD on 09/17/2018 3:45 PM
[2018-09-17] MEDS ORDERED: LIDOCAINE HCL 2% LOCAL INJ 5 ML SDV VIAL INJ ONE (17:41)
[2018-09-17] MEDS ORDERED: ETOMIDATE 2 MG/ML 10 ML INJ IV ONE (17:41)
[2018-09-17] MEDS ORDERED: FUROSEMIDE INJ 10 MG/ML 4 ML VIAL IV ONE (17:45)
[2018-09-17] MEDS ORDERED: DEXTROSE 50% SYRINGE 50 ML IV PRN (18:15)
[2018-09-17] MEDS ORDERED: ASPIRIN 81 MG CHEW TAB PO ONE ×2 (18:30→18:45)
[2018-09-17] MEDS ORDERED: NITROGLYCERIN 0.4 MG SUBL SL PRN (18:45)
[2018-09-17] MEDS ORDERED: SODIUM CHLORIDE FLUSH 10 ML SYR INJ PRN (18:45)
[2018-09-17] MEDS: CEFTRIAXONE SOD 1 GM/NS 50 ML 50 ML IV SCH ×2 (19:00→20:14)
[2018-09-17] MEDS: AZITHROMYCIN 500MG/NS 250 ML 250 ML IV SCH (19:15)
[2018-09-17] MEDS ORDERED: MORPHINE SULFATE INJ 4 MG/ML INJ IV PRN (19:15)
[2018-09-17] MEDS: GABAPENTIN 300 MG CAP PO SCH (19:30)
[2018-09-17 19:37] LABS: CREATINE KINASE MB 1.4 ng/mL (0-5.0)
[2018-09-17] MEDS: FAMOTIDINE 20 MG TAB PO SCH (20:15)
--- NOTE | 2018-09-17 20:28 | Diagnostic Imaging Report ---
EXAM: CT Chest WITHOUT contrast 09/17/2018 6:44 PM INDICATION: Chest pain. CHF. Pneumonia. COMPARISON: None TECHNIQUE: Chest was scanned utilizing a multidetector helical scanner from the lung apex through the level of the adrenal glands without administration of IV contrast. Absence of intravenous contrast decreases sensitivity for detection of lymphadenopathy and vascular pathology. Coronal and sagittal reformations were obtained. Routine protocol was performed. IV CONTRAST: None RADIATION DOSE: Total DLP: 477.57 mGy*cm Estimated effective dose: (DLP x 0.014 x size factor) mSv COMPLICATIONS: None FINDINGS: LINES/ TUBES: None. Dual lead left-sided cardiac pacemaker. LUNGS AND AIRWAYS: Mild bilateral upper lobe emphysematous changes. Mild patchy density in the right upper lobe medially on image 27. Patchy consolidation in the posterior right upper lobe on image 38 series 3. Significant subpleural consolidation in the posterior lateral superior segment of the right lower lobe on image 74. Mild patchy and reticular nodular densities identified in the inferior right middle lobe, lingular and bilateral posterior lower lobes. PLEURA: Trace right pleural effusion. HEART AND MEDIASTINUM: The thyroid gland is normal. Mild enlarged lymph nodes scattered throughout the mediastinum, the largest in the precarinal region measuring 1.9 cm in short axis on image 47 series 2. Extensive atherosclerotic calcifications of the aorta and iliac arteries without aneurysmal dilatation. The heart is mildly enlarged. Multivessel coronary artery calcifications.. There is no pericardial effusion. The pulmonary trunk measures 3.4 cm in diameter, mildly dilated. UPPER ABDOMEN: Limited non-contrast views of the upper abdomen show multiple small hepatic cysts. Bilateral lipid rich adrenal adenoma. Punctate calculi in the upper pole of the left kidney. No hydronephrosis. BONES: No acute osseous abnormality. SOFT TISSUES: Unremarkable. IMPRESSION: Multifocal pneumonia. Recommend follow-up chest PA and lateral views after treatment to document resolution. Mild mediastinal reactive lymphadenopathy. Signed by: Dr. Austin Romero M.D. on 09/17/2018 8:25 PM
--- NOTE | 2018-09-17 20:29 | NUR ---
DR CARSON AT BEDSIDE
[2018-09-17] MEDS: INSULIN REGULAR, HUMAN 100 UNIT/1 ML 3ML VIAL SQ SCH ×2 (21:09→21:31)
--- NOTE | 2018-09-17 21:23 | History and Physical ---
He is a 73-year-old male patient of [facility], presented to the emergency room with a complaint of right-sided lower chest pain, shortness of breath, cough and wheezing. HISTORY OF PRESENT ILLNESS: Mr. Anup Barbour is a 73-year-old male patient with severe illness of recurrent CHF. He has advanced ischemic cardiomyopathy with low EF in the 20s, AFib, diabetes mellitus, hypertension, coronary artery disease, anemia, watermelon stomach, gastritis, and gout. He was constipated. He was recently seen as outpatient, has had constipation and the patient had sudden onset of cough and shortness of breath. The patient was treated as outpatient for constipation. Today, the patient presented to the emergency room with complaint of right-sided lower abdominal pain, cough and shortness of breath. The patient was stating that he is taking his medications regularly. His only issue is how he got suddenly short of breath. ALLERGIES: NO KNOWN DRUG ALLERGIES. PAST MEDICAL HISTORY: Ischemic cardiomyopathy, coronary artery disease, diabetes mellitus, permanent pacemaker placement, stomach gastritis, osteoarthritis and anemia. PAST SURGICAL HISTORY: The patient has a pacemaker placement. The patient had toe amputation. The patient has AICD placement as a surgical history and urethral stricture dilatation was done and TURP was done. REVIEW OF SYSTEMS: Chest pain, shortness of breath, weakness, dizziness, constipation. PHYSICAL EXAMINATION GENERAL: He is an elderly male patient, lying in bed. He is in supine position, but head elevated. He is not in any distress. VITAL SIGNS: Temperature 99, pulse rate 88, respiration rate 19, blood pressure 110/70. HEENT: Normocephalic. NECK: JVD present. LUNGS: Bilateral basal rales present. Bilaterally diminished air entry. HEART: S1 and S2 regular. Systolic murmur present. ABDOMEN: Soft. Bowel sounds present. NEUROLOGICAL: No focal neurological deficit. ADMITTING IMPRESSION AND DIAGNOSES 1. Congestive heart failure. 2. Right lower lobe consolidation. 3. Pneumonia versus loculated effusion. 4. Coronary artery disease. 5. Gout. 6. Diabetes mellitus. 7. Hypertension. 8. Hyperlipidemia. PLAN: The patient will be admitted with the above diagnoses. Will diurese the patient and will obtain CT scan of the chest. Will do serial cardiac enzymes and EKG. Cardiology and pulmonary consultation. Treat the patient with antibiotics, IV Zithromax and Rocephin. Job#: [id number] GE
[2018-09-17] MEDS: TRAZODONE HCL 50 MG TAB PO SCH (21:31)
[2018-09-17] MEDS: INSULIN DETEMIR 100 UNIT/ML PEN SQ SCH (21:32)
[2018-09-17 22:45] VITALS: BP 118/84
--- NOTE | 2018-09-17 22:48 | Consultation ---
DATE OF CONSULTATION: PULMONARY CONSULTATION REASON FOR THE CONSULT: Chest pain, shortness of breath. HPI: Mr. Barbour is a 73-year-old male who presented to the emergency room with chest pain. The pain is on the right side and it is sharp and localized. It does not radiate and he said that it started 2 days ago, progressively got worse. He could not take it anymore, so he came to the emergency room. He has acid reflux and he reports choking on food off and on as well. He quit smoking 5 years ago, smoked for 20 years. He denies any nausea, vomiting, diarrhea. REVIEW OF SYSTEMS: GENERAL: Denies any fever or chills. HEAD: Denies any head trauma. ENT: Denies any earache. CVS: Chest pain. RESPIRATORY: Denies any shortness of breath. The rest of the review of systems is negative except as in HPI. PAST MEDICAL HISTORY: Congestive heart failure, CKD 4, diabetes, , peripheral arterial disease, pacemaker. FAMILY AND SOCIAL HISTORY: He quit smoking 5 years ago, smoked for 20 years. He denies any alcohol use. PHYSICAL EXAMINATION: VITAL SIGNS: Temperature 98.3, pulse of 87, blood pressure 117/77, respiratory rate of 18. O2 sat 98%. HEENT: Head atraumatic, normocephalic. NECK: Supple. CHEST: Clear to auscultation bilaterally. No wheezing, no crackles. HEART: S1 and S2 audible. ABDOMEN: Soft, nontender. EXTREMITIES: No pedal edema. NEUROLOGICAL: Awake and alert. LABS: White count of 13,000, hemoglobin 8.5, platelets 245,000. Chemistry: Sodium 139, potassium 3.8, chloride 103, bicarb 24, BUN 36, creatinine 1.65. In August, his creatinine was 1.69. His BNP is 2862. In the emergency room, patient received the antibiotics. CT of the chest, I have reviewed the images, it is showing evidence of pneumonia, possible aspiration with multifocal infiltrates, but nothing that can suggest the chest discomfort. ASSESSMENT/PLAN: Mr. Barbour is a 73-year-old male who probably has aspiration pneumonia versus community-acquired pneumonia. Continue the patient on Rocephin and azithromycin. Swallowing evaluation will be done. Oxygen as needed, nebulizer treatment as needed. Thank you for this consult. Job#: [id number]
[2018-09-18 00:09] VITALS: BP 118/84
[2018-09-18 04:48] LABS: BASOPHILS % 0.2 % (0.0-1.0); EOSINOPHILS # (AUTO) 0.1 (0.0-0.4); EOSINOPHILS % 0.6 % (0.0-6.0); HEMATOCRIT 24.9 % (38.2-49.6); HEMOGLOBIN 7.5 g/dL (14.0-18.0); LYMPHOCYTES # (AUTO) 1.1 (1.0-3.2); LYMPHOCYTES % 10.2 % (18.0-39.1); MEAN CORPUSCULAR HEMOGLOBIN 23.5 pg (28-32); MEAN CORPUSCULAR HGB CONC 30.1 g/dL (31-35); MEAN CORPUSCULAR VOLUME 78.1 fL (81-99); MONOCYTES % 9.9 % (4.4-11.3); NEUTROPHILS # (AUTO) 8.1 (2.1-6.9); NEUTROPHILS % 78.8 % (38.7-80.0); PLATELET COUNT 202 x10e3/uL (140-360); RED BLOOD COUNT 3.19 x10e6/uL (4.3-5.7)
[2018-09-18 05:17] LABS: ALBUMIN 2.7 g/dL (3.5-5.0); ALBUMIN/GLOBULIN RATIO 0.8 (0.8-2.0); ANION GAP 13.7 mmol/L (8-16); CALCIUM 8.9 mg/dL (8.4-10.2); CREATININE, SERUM 1.51 mg/dL (0.72-1.25); POTASSIUM 3.7 mmol/L (3.5-5.1)
[2018-09-18 05:29] VITALS: BP 137/63
[2018-09-18 05:50] LABS: CREATINE KINASE MB 1.1 ng/mL (0-5.0)
[2018-09-18] MEDS: FAMOTIDINE 20 MG TAB PO SCH ×2 (05:58→16:52)
[2018-09-18 06:07] LABS: CHOL/HDL RATIO 3.4 (3.9-4.7)
[2018-09-18] MEDS ORDERED: SODIUM CHLORIDE 0.9% 250ML 250 ML ONE (06:10)
--- NOTE | 2018-09-18 06:13 | Diagnostic Imaging Report ---
CHEST SINGLE (PORTABLE), 09/18/2018 6:00 AM Technique: CHEST SINGLE (PORTABLE) Comparison: 09/17/2018 Clinical history: Chest pain Findings: See Impression Impression: 1. Lines/Tubes: Stable left-sided ICD. 2. Stable enlarged cardiac silhouette. 3. Enlarged cardiac silhouette with central vascular congestion. 4. Focal right lung opacity and additional opacities in keeping with pneumonia better seen on CT. 5. No effusion or pneumothorax. Signed by: Dr Brenda Banks MD on 09/18/2018 6:09 AM
[2018-09-18] MEDS: CEFTRIAXONE SOD 1 GM/NS 50 ML 50 ML IV SCH ×2 (06:24→18:15)
[2018-09-18 07:26] LABS: ANISOCYTOSIS MODERATE; ELLIPTOCYTE, RBC SLIGHT; HYPOCHROMASIA MODERATE; PLATELET ESTIMATE ADEQUATE; RBC MORPHOLOGY COMMENT ABNORMAL
[2018-09-18 07:27] LABS: PLATELET MORPHOLOGY COMMENT FEW LARGE
[2018-09-18] MEDS: INSULIN REGULAR, HUMAN 100 UNIT/1 ML 3ML VIAL SQ SCH ×8 (07:30→21:00)
[2018-09-18 08:30] VITALS: BP 114/62
[2018-09-18] MEDS: GABAPENTIN 300 MG CAP PO SCH ×2 (08:40→21:00)
[2018-09-18] MEDS: PANTOPRAZOLE SOD 40 MG TABEC PO SCH (08:40)
[2018-09-18] MEDS: ASPIRIN 325 MG TAB EC PO SCH (08:41)
[2018-09-18] MEDS: SPIRONOLACTONE 25 MG TAB PO SCH ×2 (08:41→16:50)
[2018-09-18] MEDS: TAMSULOSIN HCL 0.4 MG CAP PO SCH (08:41)
[2018-09-18] MEDS: FUROSEMIDE 40 MG TAB PO SCH ×2 (08:41→16:50)
[2018-09-18] MEDS ORDERED: GABAPENTIN 300 MG CAP PO SCH (09:00)
--- NOTE | 2018-09-18 09:08 | NUR ---
CASE MANAGEMENT INITIAL ASSESSMENT Inspector Aligning to bedside to discuss plan of care with patient/family. CM/SW role and care transitions discussed. Anticipated discharge plan discussed along with duration of care. CM discussed patients right to make decisions in care. CM/SW work hours given. Patient lives: [place] [address] WITH SON BEL ROBERT Admit/Transfer: ED POA/Emergency contact: YOLANDA ROBERT [phone] Current/Previous Home Health: N/A PCP/Follow-up Care: DR. RODNEY KELLY Current/Previous DME: [facility] Other Services: N/A Employment Status: RETIRED Areas of Concerns: NONE AT THIS TIME Referral Needs: POSSIBLE HOME HEALTH Education Needs: NONE AT THIS TIME IMM/LANIER given and signed (if applicable): IMM Goal for discharge: GOAL IS TO DISCHARGE HOME WITH NO NEEDS CM left business card at the bedside with contact information. Name and number was also written on the patients whiteboard. Patient verbalized understanding of discussion. CM will follow-up with ongoing discharge and transition of care needs.
[2018-09-18 10:37] LABS: % IRON SATURATION 4 % (15-50); IRON 13 ug/dL (65-175); TOTAL IRON BINDING CAPACITY 290 ug/dL (261-478); TRANSFERRIN 207 mg/dL (174-364)
[2018-09-18 11:51] VITALS: BP 112/66
[2018-09-18] MEDS: BENZONATATE 100 MG CAP PO PRN (12:25)
[2018-09-18 12:40] LABS: CREATINE KINASE MB 1.2 ng/mL (0-5.0)
--- NOTE | 2018-09-18 13:00 | NUR ---
Patient's 3rd time requesting a laxative. His last BM was 09/16/18 but states " I don't want that to happen to me again". I explained the MD did not order one but I will page Dr. Carvajal. Dr. Carvajal paged, awaiting call back
--- NOTE | 2018-09-18 14:25 | Consultation ---
DATE OF CONSULTATION: September 18, 2018 REASON FOR CONSULTATION: Chest pain, dyspnea, and CHF. CONSULTING PHYSICIAN: Dr. Matt Carvajal. HPI: This is a pleasant 73-year-old male with history of multiple medical problems that presented with shortness of breath and chest pain. According to the patient, he stated that within the last 2 days he has been having severe shortness of breath, difficulty carrying out activities of daily living, that he presented to the emergency room for evaluation. He also stated that his sports book writer is Dr. Daniel. He had ICD placement. He also stated recently he was admitted at [facility] due to anemia and he received some blood transfusion. In the ER, he was found to have pneumonia and he was admitted for further evaluation. He denied any palpitations, any diaphoresis, any headache, any nausea or vomiting. Troponin x3 was negative. BNP showed 2,862. Chest x-ray showed focal right lung opacity and additional opacities in keeping with pneumonia. PAST MEDICAL HISTORY: Chronic systolic CHF, AFib, diabetes, hypertension, CAD, anemia, gastritis, gout, osteoarthritis, PAD, hyperlipidemia, BPH. PAST SURGICAL HISTORY: ICD placement, TURP, ureteral stricture dilatation, peripheral stains, and toe amputation. FAMILY HISTORY: Positive for hypertension and CAD. SOCIAL HISTORY: He used to smoke, but he quit 5 years ago. MEDICATIONS: He was on Lasix, gabapentin, insulin Lantus, insulin regular, omeprazole, spironolactone, Flomax, and trazodone. ALLERGIES: HE IS NOT ALLERGIC TO ANY MEDICATION. REVIEW OF SYSTEMS: Negative except those mentioned above. Is positive for shortness of breath. PHYSICAL EXAMINATION VITAL SIGNS: Temperature 97, heart rate 80, blood pressure 137/63, respirations 18, oxygen saturation 98% on 3 liters nasal cannula. GENERAL: He is awake, alert and oriented x3. HEENT: Mucous membranes are moist. NECK: Supple. LUNGS: Bilateral with decreased breath sounds. CARDIOVASCULAR: S1 and S2 present but irregular. ABDOMEN: Soft. NEUROLOGIC: Intact. EXTREMITIES: Bilateral lower with no edema. LABS: Sodium 139, potassium 3.7, chloride 104, CO2 25, BUN 40, creatinine 1.51, glucose 100. White blood cells 10.2, hemoglobin 7.5, hematocrit 24.9, platelets 202. PT 13.8, PTT 30.8, INR 0.97. IMPRESSIONS 1. Systolic congestive heart failure exacerbation. 2. Pneumonia. 3. Chest pain. 4. Anemia. 5. Diabetes. 6. Renal insufficiency. 7. History of peripheral artery disease with stent. PLANS 1. Is pending echo to reassess the LV and the valve function. 2. Will go ahead and put him on fluid restriction 1 liter. 3. Will put him on low-salt diet. 4. Will continue diuretic and put him on low-dose beta nina. 5. He stated that his ICD battery has been out. Will go ahead and interrogate the ICD. 6. No JUAN PABLO inhibitor due to the renal. 7. Troponin x3 was negative. Chest pain due to elevated BNP. Further cardiac workup pending clinical course. Thank you for this consultation. Dictated by Larisa Caruso NP Job#: [id number] TA
[2018-09-18] MEDS ORDERED: LACTULOSE SYRUP 20 GM/30 ML UDC PO PRN (15:00)
[2018-09-18 15:24] VITALS: BP 103/62
[2018-09-18] MEDS: METOPROLOL TARTRATE 25 MG TAB PO SCH (16:50)
--- NOTE | 2018-09-18 17:27 | NUR ---
Per Dr. Madison, place diuretics on hold for now.
[2018-09-18] MEDS: AZITHROMYCIN 500MG/NS 250 ML 250 ML IV SCH (18:46)
--- NOTE | 2018-09-18 19:00 | NUR ---
Received change of shift report from AM nurse. Walking rounds completed.
[2018-09-18] MEDS ORDERED: SODIUM CHLORIDE 0.9% 250ML 250 ML IV ONE (19:15)
[2018-09-18] MEDS ORDERED: FUROSEMIDE INJ 10 MG/ML 4 ML VIAL IV ONE (19:15)
[2018-09-18] MEDS ORDERED: DIPHENHYDRAMINE HCL INJ 25 MG in SODIUM CHLORIDE 0.9% 50ML 50 ML IV ONE ×4 (19:15)
[2018-09-18] MEDS ORDERED: IRON DEXTRAN INJ 500 MG in SODIUM CHLORIDE 0.9% 500ML 500 ML IV PRN (19:15)
[2018-09-18] MEDS ORDERED: IRON DEXTRAN INJ 50 MG in SODIUM CHLORIDE 0.9% 100 ML IV ONE (19:15)
[2018-09-18] MEDS ORDERED: FAMOTIDINE INJ 20 MG in SODIUM CHLORIDE 0.9% 50ML 50 ML IV ONE ×4 (19:15)
[2018-09-18] MEDS ORDERED: DEXAMETHASONE PHOS 10MG INJ 20 MG in SODIUM CHLORIDE 0.9% 50ML 50 ML IV ONE (19:15)
--- NOTE | 2018-09-18 20:04 | NUR ---
Dr Woodward on the floor to see patient. Orders given and received.
--- NOTE | 2018-09-18 20:15 | NUR ---
Dr Norwood on the floor to see patient.
[2018-09-18 20:22] VITALS: BP 106/55
[2018-09-18 20:28] LABS: CREATINE KINASE MB 1.5 ng/mL (0-5.0)
--- NOTE | 2018-09-18 20:49 | NUR ---
Received cardiac clearance from Dr Madison for Dr Norwood. Dr Norwood informed.
[2018-09-18] MEDS: TRAZODONE HCL 50 MG TAB PO SCH (21:00)
[2018-09-18] MEDS: INSULIN DETEMIR 100 UNIT/ML PEN SQ SCH (21:00)
--- NOTE | 2018-09-18 21:00 | NUR ---
Patient AAO x3. IV to left arm intact and patent. Patient to received Test meds for Iron infusion. Med started. Patient tolerating well. Continue monitor for reaction.
--- NOTE | 2018-09-19 00:28 | Consultation ---
DATE OF CONSULTATION: GI CONSULT NOTE REASON FOR CONSULTATION: Chronic anemia. HISTORY OF PRESENT ILLNESS: A 73-year-old white male with a host of comorbidities that includes coronary artery disease; cardiac dysrhythmia, status post AICD/defibrillator/pacemaker. His board certified music therapist is Dr. Daniel. He got admitted this time with chest pain, shortness of breath on minimal exertion. He was found to have pneumonia. Currently being treated with antibiotics. Cardiology is also following the patient as he has some component of congestive heart failure as well. He is being diuresed. On further questioning, patient stated that he has chronic anemia for almost 2 years. Patient is not a very good historian. He is not able to give me any detailed history regarding anemia. When I asked him whether he has had anemia evaluated by any upper endoscopy or colonoscopy, he could not recall. I reviewed the chart of my office. I found out his record. He was in [place] in 2014. He has had upper endoscopy performed by my associate, Dr. Gonzales. At that time, upper endoscopy was performed for reflux abdominal pain. 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 This was biopsied. Biopsy result is not available. It was advised that he should undergo endoscopic mucosal resection of the mass. However, patient never got followed in our office. On this admission, his blood work revealed anemia with hemoglobin of 8.5. Subsequent draw today showed a hemoglobin of 7.5. No gross GI bleeding. MCV remains low to 78.1. Iron profile showed serum iron 13, TIBC 290, and iron saturation 4%. Liver enzymes were noted normal. Patient normally has 1 or 2 soft bowel movements daily. Denies any dark stool. He is not on any NSAIDs chronically. No prior history of any peptic ulcer disease. He is not sure if she ever had a colonoscopy. I did not find any colonoscopy in our office record. REVIEW OF SYSTEMS: Twelve-point system reviewed, symptomatology is limited as per HPI. PAST MEDICAL HISTORY: Chronic congestive heart failure, atrial (not on any anticoagulants), type 2 diabetes, hypertension, coronary artery disease, chronic anemia, gout, osteoarthritis, peripheral arterial disease, hyperlipidemia, and benign prostatic hypertrophy. PAST SURGICAL HISTORY: ICD implant, TURP, ureteral stricture dilation, and toe amputation. FAMILY HISTORY: Noncontributory. Negative for any GI or SUPPLIER QUALITY malignancies. Positive for hypertension and coronary artery disease. SOCIAL HISTORY: Ex-smoker, quit smoking about 5 years ago. Seldom drinks alcohol. Never used any illicit drugs. HOME MEDICATIONS 1. Furosemide 40 mg twice daily. 2. Gabapentin 300 mg twice daily. 3. Insulin glargine 40 units subcutaneous at bedtime. 4. Insulin regular 8 units 3 times daily. 5. Omeprazole 20 mg daily. 6. Spironolactone 50 mg twice daily. 7. Tamsulosin 0.4 mg daily. 8. Trazodone 50 mg daily. Inpatient medication list reviewed. He has been put on antibiotic, ceftriaxone 1 g daily, along with other outpatient medications. PHYSICAL EXAMINATION VITAL SIGNS: Temperature 96.1, pulse 83, respirations 18, blood pressure 103/62 to 106/55, and oxygen saturation 93% on 2 L of nasal cannula. GENERAL: Not in any acute distress. Gross pallor. Oral mucosa is moist. Anicteric sclerae. CVS: S1 and S2 regular. LUNGS: Bilaterally grossly clear. AICD in left anterior chest wall. ABDOMEN: Soft, nondistended, nontender. No palpable mass or hernia. Positive bowel sounds. EXTREMITIES: Warm. No leg edema. LABS: Electrolytes normal. BUN 40, creatinine 1.51. Serum iron 13, TIBC 290, iron saturation 4%, and transferrin 207. WBC 10.25; hemoglobin 7.5, down from 8.5; hematocrit 24.9; MCV 78.1, and platelet count 202,000. PT 13.8, INR 0.97, PTT 30.8. Urinalysis showed protein 1+, glucose 2+, nitrite negative, leukocyte is trace negative. Chest x-ray showed large cardiac silhouette, focal right lung opacity and additional opacities consistent with pneumonia as better seen on CT. No effusion or pneumothorax. CT of the chest showed multifocal pneumonia. Recommend followup chest x-ray. IMPRESSIONS 1. Chronic anemia with microcytic indices. However, iron profile is not consistent with iron deficiency. 2. 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 3. Pneumonia. 4. Congestive heart failure. PLAN: Continue present medical management. Continue antibiotic for pneumonia. 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 Stool guaiac to check for any occult blood. If cardiology clears, then keep n.p.o. past midnight and we will perform upper endoscopy tomorrow. I thank Dr. Carvajal for allowing me to participate in the care of this patient. Job#: [id number] CF
[2018-09-19] MEDS ORDERED: SODIUM CHLORIDE 0.9% 250ML 250 ML ONE (03:19)
[2018-09-19] MEDS ORDERED: FUROSEMIDE INJ 10 MG/ML 4 ML VIAL ONE (03:21)
--- NOTE | 2018-09-19 04:00 | NUR ---
Iron infusion completed. Blood started. Consent discussed and signed. Order for 2 units of blood. Patient tolerating first unit of blood well. Continue monitor. Lasix 40mmg given prior to blood as requested by Dr. Woodward.
[2018-09-19 04:52] LABS: BASOPHILS % 0.2 % (0.0-1.0); HEMATOCRIT 27.8 % (38.2-49.6); HEMOGLOBIN 8.3 g/dL (14.0-18.0); LYMPHOCYTES # (AUTO) 0.3 (1.0-3.2); LYMPHOCYTES % 2.7 % (18.0-39.1); MEAN CORPUSCULAR HEMOGLOBIN 23.7 pg (28-32); MEAN CORPUSCULAR HGB CONC 29.9 g/dL (31-35); MEAN CORPUSCULAR VOLUME 79.4 fL (81-99); MONOCYTES # (AUTO) 0.1 (0.2-0.8); MONOCYTES % 0.9 % (4.4-11.3); NEUTROPHILS # (AUTO) 10.3 (2.1-6.9); NEUTROPHILS % 95.7 % (38.7-80.0); PLATELET COUNT 246 x10e3/uL (140-360); RED CELL DISTRIBUTION WIDTH 20.1 % (11.7-14.4)
[2018-09-19 05:05] LABS: ANION GAP 18.4 mmol/L (8-16); POTASSIUM 4.4 mmol/L (3.5-5.1)
[2018-09-19 05:20] VITALS: BP 153/81
[2018-09-19] MEDS: FAMOTIDINE 20 MG TAB PO SCH ×2 (06:45→18:46)
[2018-09-19] MEDS: ALBUTEROL/IPRATROPIUM 3 ML NEB NEB PRN (07:00)
[2018-09-19] MEDS: INSULIN REGULAR, HUMAN 100 UNIT/1 ML 3ML VIAL SQ SCH ×8 (07:30→21:37)
--- NOTE | 2018-09-19 08:05 | NUR ---
Call to Dr. Norwood to clear if patient will need EGD today per note on dictation and he called back and stated procedure will be done tomorrow per GI. Patient will have EGD tomorrow at 1:30pm
[2018-09-19 08:37] VITALS: BP 145/91
[2018-09-19] MEDS: TAMSULOSIN HCL 0.4 MG CAP PO SCH (08:49)
[2018-09-19] MEDS: METOPROLOL TARTRATE 25 MG TAB PO SCH ×2 (08:49→17:00)
[2018-09-19] MEDS: PANTOPRAZOLE SOD 40 MG TABEC PO SCH (08:49)
[2018-09-19] MEDS: ASPIRIN 325 MG TAB EC PO SCH (08:49)
[2018-09-19] MEDS: GABAPENTIN 300 MG CAP PO SCH ×2 (08:49→21:37)
--- NOTE | 2018-09-19 09:01 | NUR ---
Patient alert and responsive, ICD was interrogated yesterday and per [employer] for cardiology, patient is cleared for EGD and will have it tomorrow at 1:30pm. Tolerated all meds.
--- NOTE | 2018-09-19 09:45 | NUR ---
Visit made by the Spiritual Care Department Pastoral Visitor, Miguel Chu. PV provided pastoral presence, prayer, hospitality, and supportive listening. Pastoral Visitor informed pt/family of the scope of [employer] Director Services and availability. JUDD LAMAS Lead Java Programmer Spiritual Care Department O: [phone] Pager: [phone] ([phone] number calling from)
[2018-09-19 09:46] VITALS: BP 145/91
[2018-09-19] MEDS ORDERED: DIATRIZOATE MEGL/DIATRIZOA SOD 30 ML BTL PO ONE (10:24)
[2018-09-19] MEDS ORDERED: SODIUM CHLORIDE 0.9% 1000ML 1,000 ML IV ONE (10:45)
[2018-09-19] MEDS ORDERED: FUROSEMIDE INJ 10 MG/ML 2 ML VIAL IV NR (11:00)
--- NOTE | 2018-09-19 11:23 | NUR ---
Patient started blood transfusion at this time and tolerating well at this time, VSS, no side effects noted, will continue to monitor
--- NOTE | 2018-09-19 11:53 | NUR ---
Patient alert and responsive, MD aware of BS and to give schedule insulin and monitor.
[2018-09-19 13:24] VITALS: BP 125/71
--- NOTE | 2018-09-19 13:59 | NUR ---
Patient completed blood transfusion at this time and no side effects noted, call to CT for grain picker and to complete CT abd at this time
--- NOTE | 2018-09-19 15:49 | NUR ---
Nutrition Screen Note RD Recommendation for Physician: -If confirmed risk of aspiration, consider EN via PEG -Consult RD for TF rec -If PO is safe and feasible, rec ADA/ cardiac diet Plan of Care: RD following, monitoring for tolerance and adequacy Nutrition reason for involvement: Diagnosis Primary Diagnose(s): CHF and PNA PMH: Ischemic cardiomyopathy, coronary artery disease, diabetes mellitus, permanent pacemaker placement, stomach gastritis, osteoarthritis and anemia. Ht: 69in Wt: 181.56lb BMI: 26.8kg/m2 IBW: 160lb RD Assessment: (09/19/18) Chart reviewed. Labs and meds reviewed. 73yo M, who is admitted for chest pain and SOB. Pt was discussed during rounds. Per RN, swallow study yesterday revealed risk for silent aspiration. EGD is planned for tomorrow. Visited pt in the room. 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 Some complains of choking on food due to acid reflux. Pt reports choking on a piece of meat a week ago. However, the sx was resolved after going to sleep and taking pepcid. No other GI complains noted at this time. LBM 09/18, after laxatives were given. No recent weight loss reported given that his UBW ~155lbs. Will continue to monitor and follow. Current Diet: cardiac diet Malnutrition Evaluation (09/19/18) The patient does not meet criteria for a specified degree of malnutrition at this time. Will re-evaluate at follow-up as appropriate. Diet Education Needs Assessment: Diet education not indicated. Nutrition Care Level: low Signed: Michelle Buckley, MS, RD, LD
--- NOTE | 2018-09-19 16:04 | Diagnostic Imaging Report ---
EXAMINATION: CT of the abdomen and pelvis without contrast. TECHNIQUE: Spiral CT images of the abdomen and pelvis were performed from the lung bases to the lesser trochanters. No intravenous contrast was given per referring physician request. Coronal and sagittal reformatted images were obtained. COMPARISON: CT chest without contrast 09/17/2018, CT abdomen and pelvis 12/21/2016 CLINICAL HISTORY:Anemia DISCUSSION: ABSENCE OF INTRAVENOUS CONTRAST DECREASES SENSITIVITY FOR DETECTION OF FOCAL LESIONS AND VASCULAR PATHOLOGY. ABDOMEN/PELVIS: LOWER THORAX: Trace right pleural effusion. Patchy multifocal opacities/consolidations seen to better advantage on CT chest. HEPATOBILIARY:Unchanged 2.2 cm hypoattenuating lesion in segment 6, likely representing a cyst. 1.9 cm low-attenuation lesion in segment 8/7 is also unchanged. Scattered subcentimeter hypoattenuating foci scattered throughout the liver are also unchanged, and presumably represent additional small cysts. No intrahepatic biliary ductal dilatation. Gallbladder is unremarkable. SPLEEN: No splenomegaly. PANCREAS: No focal masses or ductal dilatation. ADRENALS: Unchanged bilateral adrenal fullness. KIDNEYS/URETERS: Atherosclerotic calcifications within the renal kusum. Unchanged 7 mm calculus right upper pole. Unchanged additional punctate bilateral calcification in the region of the calyces which may represent nonobstructing renal calculi or vascular calcifications. No hydronephrosis. No ureteral calculi. No gross renal mass lesion. Unchanged mild bilateral perinephric stranding. PELVIC ORGANS/BLADDER: Urinary bladder is unremarkable. Coarse prostatic calcifications and pelvic phleboliths are unchanged. PERITONEUM/RETROPERITONEUM: Trace pelvic ascites. No pneumoperitoneum. LYMPH NODES: No pelvic sidewall, retroperitoneal, or mesenteric lymphadenopathy. VESSELS: Limited evaluation without intravenous contrast. Extensive atherosclerotic calcification of the abdominal aorta and visceral branches, without aneurysmal dilatation. GI TRACT: The large bowel shows no gross distention or wall thickening. The appendix is unremarkable. Enteric contrast material reaches the large bowel. No small bowel dilatation. Prominence of the gastric rugal folds is unchanged and likely reflective of incomplete distention of the stomach BONES AND SOFT TISSUES: Bilateral fat-containing inguinal hernias. Otherwise no focal soft tissue abnormalities.. No osseous destructive lesions. Unchanged subchondral cyst of the right femoral head. Unchanged probable bone island superior left acetabulum. IMPRESSION: Interval development of trace right pleural effusion and trace pelvic ascites which may indicate fluid overload in this patient with reported history of congestive heart failure. No acute intra-abdominal or pelvic CT abnormalities. Unchanged questionable bilateral renal calculi. Atherosclerotic vascular disease. Partially visualized bilateral lower lobe and right middle lobe nodular opacities and consolidations. Refer to the report for CT scan of the chest 09/17/2018 for further details. Signed by: Dr. Riaz Hawkins M.D. on 09/19/2018 4:01 PM
--- NOTE | 2018-09-19 16:16 | NUR ---
CT scan completed and MBS also completed, concern for reflux aspiration but no normal swallowing aspiration observed per ST, Patient will be having EGD tomorrow.
[2018-09-19 16:43] VITALS: BP 127/77
--- NOTE | 2018-09-19 17:13 | Diagnostic Imaging Report ---
EXAM: Modified barium swallow INDICATION: Dysphagia COMPARISON: None FINDINGS: This examination was conducted in conjunction with speech pathologist. Patient was given, by mouth, liquids and solids of various consistencies. Examination showed premature spillage to the vallecula with mixed texture. No penetration or aspiration was noted. Moderate vallecular and piriform sinus residue was seen with puree texture and initial liquid trials. Minimal pharyngeal wall residue was noted with puree. Fluoro time: 1.5 minutes IMPRESSION: <No evidence of aspiration. Please see speech pathology report for detailed description and recommendations.> Signed by: Dr. Konrad Plascencia M.D. on 09/19/2018 5:10 PM
[2018-09-19 17:58] LABS: BASOPHILS % 0.1 % (0.0-1.0); HEMATOCRIT 32.6 % (38.2-49.6); HEMOGLOBIN 9.9 g/dL (14.0-18.0); LYMPHOCYTES # (AUTO) 0.5 (1.0-3.2); LYMPHOCYTES % 4.8 % (18.0-39.1); MEAN CORPUSCULAR HEMOGLOBIN 24.5 pg (28-32); MEAN CORPUSCULAR HGB CONC 30.4 g/dL (31-35); MEAN CORPUSCULAR VOLUME 80.7 fL (81-99); MONOCYTES # (AUTO) 0.7 (0.2-0.8); MONOCYTES % 7.2 % (4.4-11.3); NEUTROPHILS # (AUTO) 8.1 (2.1-6.9); NEUTROPHILS % 87.3 % (38.7-80.0); PLATELET COUNT 241 x10e3/uL (140-360); RED BLOOD COUNT 4.04 x10e6/uL (4.3-5.7); RED CELL DISTRIBUTION WIDTH 18.9 % (11.7-14.4)
[2018-09-19] MEDS: CEFTRIAXONE SOD 1 GM/NS 50 ML 50 ML IV SCH (18:46)
[2018-09-19] MEDS: AZITHROMYCIN 500MG/NS 250 ML 250 ML IV SCH (18:46)
[2018-09-19 20:00] VITALS: BP 102/66
[2018-09-19] MEDS: INSULIN DETEMIR 100 UNIT/ML PEN SQ SCH (21:37)
[2018-09-19] MEDS: TRAZODONE HCL 50 MG TAB PO SCH (21:37)
[2018-09-20] VITALS (7 sets, daily range): BP systolic 102–134; BP diastolic 60–98
[2018-09-20] MEDS: FAMOTIDINE 20 MG TAB PO SCH ×2 (06:31→18:10)
[2018-09-20] MEDS: PANTOPRAZOLE SOD 40 MG TABEC PO SCH (07:30)
[2018-09-20] MEDS: INSULIN REGULAR, HUMAN 100 UNIT/1 ML 3ML VIAL SQ SCH ×6 (07:30→21:00)
[2018-09-20] MEDS: METOPROLOL TARTRATE 25 MG TAB PO SCH ×2 (08:39→18:10)
[2018-09-20] MEDS: ASPIRIN 325 MG TAB EC PO SCH (09:00)
[2018-09-20] MEDS: ALBUTEROL/IPRATROPIUM 3 ML NEB NEB PRN (13:00)
--- NOTE | 2018-09-20 13:30 | NUR ---
ST Note: Attempted to see pt for f/u after modified barium swallow study. pt leaving floor for procedure. NA Cota, reported pt had been NPO for procedure and so no meals eaten this date. Will f/u later today time permitting.
[2018-09-20] MEDS ORDERED: DEXTROSE 5% 250ML 250 ML IV ONE (13:44)
[2018-09-20] MEDS: GABAPENTIN 300 MG CAP PO SCH ×2 (15:13→20:58)
[2018-09-20] MEDS: TAMSULOSIN HCL 0.4 MG CAP PO SCH (15:14)
[2018-09-20] MEDS: CEFTRIAXONE SOD 1 GM/NS 50 ML 50 ML IV SCH (18:04)
[2018-09-20] MEDS: SPIRONOLACTONE 25 MG TAB PO SCH (18:10)
[2018-09-20] MEDS: FUROSEMIDE 40 MG TAB PO SCH (18:10)
[2018-09-20] MEDS: AZITHROMYCIN 500MG/NS 250 ML 250 ML IV SCH (18:36)
[2018-09-20] MEDS: INSULIN DETEMIR 100 UNIT/ML PEN SQ SCH (20:58)
[2018-09-20] MEDS: TRAZODONE HCL 50 MG TAB PO SCH (20:58)
[2018-09-21] VITALS (7 sets, daily range): BP systolic 101–121; BP diastolic 54–77
[2018-09-21] MEDS: FAMOTIDINE 20 MG TAB PO SCH ×2 (06:04→17:40)
[2018-09-21] MEDS: INSULIN REGULAR, HUMAN 100 UNIT/1 ML 3ML VIAL SQ SCH ×7 (07:14→20:30)
--- NOTE | 2018-09-21 07:14 | NUR ---
Patient's blood glucose is 41 at this time. Patient given two cups of orange juice with sugar. Patient is asymptomatic.
[2018-09-21] MEDS: GABAPENTIN 300 MG CAP PO SCH ×2 (08:19→20:34)
[2018-09-21] MEDS: ASPIRIN 325 MG TAB EC PO SCH (08:19)
[2018-09-21] MEDS: SPIRONOLACTONE 25 MG TAB PO SCH ×2 (08:19→17:40)
[2018-09-21] MEDS: METOPROLOL TARTRATE 25 MG TAB PO SCH ×2 (08:19→17:40)
[2018-09-21] MEDS: PANTOPRAZOLE SOD 40 MG TABEC PO SCH (08:19)
[2018-09-21] MEDS: TAMSULOSIN HCL 0.4 MG CAP PO SCH (08:19)
[2018-09-21] MEDS: FUROSEMIDE 40 MG TAB PO SCH ×2 (08:19→17:40)
[2018-09-21] MEDS: ALBUTEROL/IPRATROPIUM 3 ML NEB NEB PRN ×2 (11:15→20:15)
--- NOTE | 2018-09-21 11:15 | NUR ---
Called Dr. Norwood, message for Dr. Cuevas, to inform of positive blood occult stool. Awaiting any new orders.
--- NOTE | 2018-09-21 11:38 | NUR ---
Dr. Cuevas rounding. No new orders received.
--- NOTE | 2018-09-21 17:16 | NUR ---
Discussed with nurse Cota that pt will benefit from a RW use for home to improve balance and prevent falling. Addendum: 09/21/18 at 1717 by Polo Singh PT Amended: Links added.
[2018-09-21] MEDS: CEFTRIAXONE SOD 1 GM/NS 50 ML 50 ML IV SCH (18:13)
[2018-09-21] MEDS: AZITHROMYCIN 500MG/NS 250 ML 250 ML IV SCH (18:43)
[2018-09-21] MEDS: INSULIN DETEMIR 100 UNIT/ML PEN SQ SCH (20:30)
[2018-09-21] MEDS: TRAZODONE HCL 50 MG TAB PO SCH (20:34)
[2018-09-22] VITALS (8 sets, daily range): BP systolic 111–141; BP diastolic 57–74
[2018-09-22 05:05] LABS: BASOPHILS % 0.4 % (0.0-1.0); EOSINOPHILS # (AUTO) 0.1 (0.0-0.4); EOSINOPHILS % 1.4 % (0.0-6.0); HEMATOCRIT 30.9 % (38.2-49.6); HEMOGLOBIN 9.4 g/dL (14.0-18.0); LYMPHOCYTES # (AUTO) 1.2 (1.0-3.2); LYMPHOCYTES % 13.8 % (18.0-39.1); MEAN CORPUSCULAR HEMOGLOBIN 24.8 pg (28-32); MEAN CORPUSCULAR HGB CONC 30.4 g/dL (31-35); MEAN CORPUSCULAR VOLUME 81.5 fL (81-99); MONOCYTES # (AUTO) 0.7 (0.2-0.8); MONOCYTES % 8.7 % (4.4-11.3); NEUTROPHILS # (AUTO) 6.3 (2.1-6.9); NEUTROPHILS % 74.9 % (38.7-80.0); PLATELET COUNT 254 x10e3/uL (140-360); RED BLOOD COUNT 3.79 x10e6/uL (4.3-5.7); RED CELL DISTRIBUTION WIDTH 20.7 % (11.7-14.4)
[2018-09-22 05:25] LABS: ANION GAP 14.2 mmol/L (8-16); CALCIUM 8.6 mg/dL (8.4-10.2); CREATININE, SERUM 1.51 mg/dL (0.72-1.25); POTASSIUM 4.2 mmol/L (3.5-5.1)
[2018-09-22 05:39] LABS: B-TYPE NATRIURETIC PEPTIDE2 2649.9 pg/mL (0-100)
[2018-09-22] MEDS: FAMOTIDINE 20 MG TAB PO SCH ×2 (06:38→17:33)
[2018-09-22] MEDS: ALBUTEROL/IPRATROPIUM 3 ML NEB NEB PRN ×2 (07:00→20:10)
[2018-09-22] MEDS: INSULIN REGULAR, HUMAN 100 UNIT/1 ML 3ML VIAL SQ SCH ×7 (07:46→20:39)
[2018-09-22] MEDS: PANTOPRAZOLE SOD 40 MG TABEC PO SCH (07:46)
[2018-09-22] MEDS: FUROSEMIDE 40 MG TAB PO SCH ×2 (08:37→17:33)
[2018-09-22] MEDS: TAMSULOSIN HCL 0.4 MG CAP PO SCH (08:37)
[2018-09-22] MEDS: SPIRONOLACTONE 25 MG TAB PO SCH ×2 (08:37→17:33)
[2018-09-22] MEDS: METOPROLOL TARTRATE 25 MG TAB PO SCH ×2 (08:37→17:33)
[2018-09-22] MEDS: ASPIRIN 325 MG TAB EC PO SCH (08:37)
[2018-09-22] MEDS: GABAPENTIN 300 MG CAP PO SCH ×2 (11:57→20:38)
[2018-09-22] MEDS: CEFTRIAXONE SOD 1 GM/NS 50 ML 50 ML IV SCH (18:50)
[2018-09-22] MEDS: AZITHROMYCIN 500MG/NS 250 ML 250 ML IV SCH (19:35)
[2018-09-22] MEDS: TRAZODONE HCL 50 MG TAB PO SCH (20:38)
[2018-09-22] MEDS: INSULIN DETEMIR 100 UNIT/ML PEN SQ SCH (20:39)
[2018-09-23] VITALS (7 sets, daily range): BP systolic 111–137; BP diastolic 60–72
[2018-09-23 04:42] LABS: BASOPHILS % 0.4 % (0.0-1.0); EOSINOPHILS # (AUTO) 0.2 (0.0-0.4); EOSINOPHILS % 1.7 % (0.0-6.0); HEMATOCRIT 30.1 % (38.2-49.6); HEMOGLOBIN 9.1 g/dL (14.0-18.0); LYMPHOCYTES # (AUTO) 1.3 (1.0-3.2); LYMPHOCYTES % 12.2 % (18.0-39.1); MEAN CORPUSCULAR HEMOGLOBIN 24.3 pg (28-32); MEAN CORPUSCULAR HGB CONC 30.2 g/dL (31-35); MEAN CORPUSCULAR VOLUME 80.3 fL (81-99); MONOCYTES # (AUTO) 0.7 (0.2-0.8); MONOCYTES % 6.6 % (4.4-11.3); NEUTROPHILS # (AUTO) 8.5 (2.1-6.9); NEUTROPHILS % 78.3 % (38.7-80.0); PLATELET COUNT 260 x10e3/uL (140-360); RED BLOOD COUNT 3.75 x10e6/uL (4.3-5.7)
[2018-09-23 04:59] LABS: ALBUMIN 2.6 g/dL (3.5-5.0); ALBUMIN/GLOBULIN RATIO 0.9 (0.8-2.0); ANION GAP 13.9 mmol/L (8-16); CALCIUM 8.7 mg/dL (8.4-10.2); CREATININE, SERUM 1.43 mg/dL (0.72-1.25); POTASSIUM 3.9 mmol/L (3.5-5.1)
[2018-09-23] MEDS: ALBUTEROL/IPRATROPIUM 3 ML NEB NEB PRN (06:39)
[2018-09-23] MEDS: FAMOTIDINE 20 MG TAB PO SCH ×2 (06:48→17:29)
--- NOTE | 2018-09-23 07:21 | NUR ---
REPORT GIVEN TO ONCOMING NURSE,WALKING ROUNDS MADE.PT RESTING IN BED WITH NO S/S OF DISTRESS.
[2018-09-23] MEDS: INSULIN REGULAR, HUMAN 100 UNIT/1 ML 3ML VIAL SQ SCH ×7 (07:30→20:49)
[2018-09-23] MEDS: PANTOPRAZOLE SOD 40 MG TABEC PO SCH (08:21)
[2018-09-23] MEDS: ASPIRIN 325 MG TAB EC PO SCH (08:22)
[2018-09-23] MEDS: METOPROLOL TARTRATE 25 MG TAB PO SCH ×2 (08:22→17:28)
[2018-09-23] MEDS: SPIRONOLACTONE 25 MG TAB PO SCH ×2 (08:22→17:28)
[2018-09-23] MEDS: TAMSULOSIN HCL 0.4 MG CAP PO SCH (08:22)
[2018-09-23] MEDS: FUROSEMIDE 40 MG TAB PO SCH ×2 (08:22→17:28)
--- NOTE | 2018-09-23 12:30 | Progress Note ---
DATE: September 23, 2018 SUBJECTIVE: Patient reports no abdominal pain. Tolerating oral diet. Regular bowel movements, soft brown stool. REVIEW OF SYSTEMS CVS: No chest pain, palpitation. GENERAL: No fever or chills. RESPIRATORY: No cough or expectoration. MEDICATIONS: Reviewed as per NOV. LABS: WBC 10.90, hemoglobin down from 9.4 to 9.1, hematocrit 30.1, platelet count 260. Electrolytes normal, BUN 33, creatinine 1.43 down from 1.51. Liver enzymes normal. ASSESSMENTS 1. Chronic anemia with macrocytic indices. Status post upper endoscopy. This showed medium size mass in the duodenal bulb. This was biopsied. Biopsy result is pending. 2. Pneumonia. 3. Coronary artery disease, congestive heart failure status post automatic implantable cardioverter-defibrillator/pacemaker. Patient has a poor cardiac reserve. PLAN: Patient can be discharged from GI standpoint. As discussed with Dr. Carvajal, patient likely will be referred to Dr. Ford in [facility] for endoscopy mucosal resection or endoscopic surgical dissection of the large mass/polyp in the duodenal bulb. This mass was biopsied during the upper endoscopy. Pathology is pending. Patient will also need a colonoscopy for evaluation of anemia and hemoccult positive stool. This can be done electively as an outpatient. I have given my business card to patient. I have explained everything to patient in layman's terms. I have instructed him to call my office to set up an appointment within 1 week. Patient agreed and he is going to call my office to set up an appointment after discharge. Job#: [id number] NANDO
[2018-09-23] MEDS: GABAPENTIN 300 MG CAP PO SCH ×2 (12:40→20:49)
[2018-09-23] MEDS: BENZONATATE 100 MG CAP PO PRN (12:46)
--- NOTE | 2018-09-23 15:09 | NUR ---
CM SPOKE TO MD REGARDING PATIENT PLAN OF CARE. MD STATES TO MONITOR PATIENT OVERNIGHT. PENDING MORNING LABS, MD WILL INITIATE DISCHARGE PLAN.
[2018-09-23] MEDS: AZITHROMYCIN 500MG/NS 250 ML 250 ML IV SCH (17:28)
[2018-09-23] MEDS: CEFTRIAXONE SOD 1 GM/NS 50 ML 50 ML IV SCH (17:28)
[2018-09-23] MEDS: TRAZODONE HCL 50 MG TAB PO SCH (20:48)
[2018-09-23] MEDS: INSULIN DETEMIR 100 UNIT/ML PEN SQ SCH (20:49)
[2018-09-24] VITALS: BP 111/60
[2018-09-24 04:00] VITALS: BP 111/56
[2018-09-24] MEDS: FAMOTIDINE 20 MG TAB PO SCH (06:47)
--- NOTE | 2018-09-24 06:52 | Diagnostic Imaging Report ---
EXAM: CHEST 2 VIEWS, PA and lateral INDICATION: Pneumonia COMPARISON: AP view of the chest September 18, 2018 FINDINGS: LINES/TUBES: Stable left approach cardiac device. LUNGS: Stable bilateral air space opacities. PLEURA: No effusions or pneumothorax. HEART AND MEDIASTINUM: Normal size and contour. BONES AND SOFT TISSUES: No acute findings. IMPRESSION: Stable findings of multifocal pneumonia. Signed by: Dr. Kelly Montana M.D. on 09/24/2018 6:49 AM
[2018-09-24] MEDS: ALBUTEROL/IPRATROPIUM 3 ML NEB NEB PRN (07:00)
[2018-09-24] MEDS: INSULIN REGULAR, HUMAN 100 UNIT/1 ML 3ML VIAL SQ SCH ×3 (07:30→12:24)
[2018-09-24 08:00] VITALS: BP 124/58
[2018-09-24] MEDS: TAMSULOSIN HCL 0.4 MG CAP PO SCH (08:00)
[2018-09-24] MEDS: SPIRONOLACTONE 25 MG TAB PO SCH (08:00)
[2018-09-24] MEDS: FUROSEMIDE 40 MG TAB PO SCH (08:00)
[2018-09-24] MEDS: ASPIRIN 325 MG TAB EC PO SCH (08:00)
[2018-09-24] MEDS: METOPROLOL TARTRATE 25 MG TAB PO SCH (08:00)
[2018-09-24] MEDS: PANTOPRAZOLE SOD 40 MG TABEC PO SCH (08:00)
[2018-09-24 09:29] VITALS: BP 124/58
[2018-09-24 12:10] VITALS: BP 118/67
[2018-09-24] MEDS ORDERED: AUGMENTIN 875-1 EACH PO (12:10)
[2018-09-24] MEDS ORDERED: FEOSOL325 MG PO (12:11)
[2018-09-24] MEDS ORDERED: PANTOPRAZOLE SO40 MG PO (12:11)
[2018-09-24] MEDS ORDERED: FOLIC ACID1 MG PO (12:11)
--- NOTE | 2018-09-24 12:14 | Discharge Summary ---
He is a 73-year-old male patient of mine, presented to the emergency room with a complaint of shortness of breath, cough and wheezing, was admitted with a left lower lobe consolidation and pneumonia and pleural effusion and CHF and patient has a multilobar pneumonia. Coronary artery disease, diabetes mellitus, hypertension, heart disease, and hyperlipidemia. Patient was admitted with above diagnoses and patient also has anemia. Patient had a CT scan of the chest done, was found to have multilobar pneumonia. So pulmonary and cardiology consult was done. Aspiration possibility was entertained. Patient had a speech evaluation that was done and modified barium swallow was done which was negative. Cultures were sent which did not show any growth. Patient was also given diuretics. The patient was treated with IV antibiotics, ceftriaxone and Zithromax. Patient developed severe anemia during the hospital course and patient's hemoglobin dropped down to 7.7 7.5. Patient had a CT scan of the abdomen done. Patient received blood transfusion. Patient had a hematology consultation. Patient received IV iron and transfusion. Patient had upper endoscopy done. Patient was found to have duodenal mass in the first component and it looks like benign, so patient will require outpatient colonoscopy as well as patient will require endoscopic surgical evaluation. Patient's final cultures were negative. Pathology was not available. PLAN: Patient will be discharged home on Augmentin antibiotic for 10 days and patient will be given iron, folic acid, and Protonix. Patient needs to follow up as outpatient with GI, Dr. Norwood, for possible colonoscopy and duodenal surgical evaluation for the duodenal mass additionally after and patient will need IV iron as outpatient. RODNEY KELLY MD Job#: [id number] TA
[2018-09-24] MEDS: GABAPENTIN 300 MG CAP PO SCH (12:25)
--- NOTE | 2018-09-24 13:13 | Consultation ---
DATE OF CONSULTATION: September 18, 2018 Mr. Barbour is a 74-year-old white male who has been referred to me for evaluation of anemia. No history of hematochezia, melena, hematuria, hematemesis, hemoptysis. History of congestive heart failure, history of coronary artery disease, history of gout, history of hypertension, history of hyperlipidemia, history of PAD with stenting. SOCIAL HISTORY: History of excessive smoking. FAMILY HISTORY: Noncontributory. ALLERGIES: REPORTED NONE. MEDICATIONS: At this time: 1. Albuterol. 2. Ceftriaxone. 3. Insulin. 4. Lasix. 5. Nitroglycerin. 6. Pepcid. 7. Trazodone. 8. Gabapentin. 9. Morphine. 10. Aldactone. 11. Flomax. 12. Protonix. 13. Benzonate. 14. Metoprolol. REVIEW OF SYSTEMS HEENT: Normal. CARDIAC: History of coronary artery disease. History of hypertension. History of congestive heart failure. RESPIRATORY: History of congestive heart failure. At the present time, bilateral bronchial pneumonia. GI: Normal. : History of BPH. MUSCULOSKELETAL: Normal. NEUROENDOCRINE: History of diabetes mellitus. PHYSICAL EXAMINATION GENERAL: A rather thin-built male, very anemic. No palpable adenopathy. HEART: Within normal limits. LUNGS: Coarse crepitations. ABDOMEN: Soft. RECTAL: Deferred. CENTRAL NERVOUS SYSTEM: Essentially normal. EXTREMITIES: Essentially normal. LABS: Shows a hemoglobin of 7.7, hematocrit 24.9 with low MCV and low MCHC. White count of 10,200 and platelets 202,000. Sodium 139, potassium 3.7, chloride 74, CO2 of 25, BUN 40, creatinine 1.5, bilirubin 0.6, SGOT 9, SGPT 8, alkaline phosphatase 102. As part of workup of iron deficiency anemia, stool for occult blood was done, which was positive. The patient subsequently had a CT scan of the abdomen and pelvis, which was reported essentially normal. However, an EGD was done, which showed a submucosal duodenal mass, pathology of which is still pending. The patient is being referred to a different physician [place] for resection of this duodenal mass. IMPRESSION 1. Iron deficiency anemia. 2. Congestive heart failure. 3. Bronchial pneumonia, multifocal. 4. Coronary artery disease. 5. History of gout. 6. History of hypertension. 7. Hyperlipidemia. 8. Peripheral arterial disease with stenting. 9. Leukocytosis. 10. Chronic renal failure. 11. Diabetes mellitus. 12. Hypoalbuminemia. 13. Hyperglobulinemia. PLAN, COMMENTS AND SUGGESTIONS: Suggest blood as he is symptomatic. Suggest Infed. Continue the antibiotics. Quantitation of immunoglobulins becomes essential since the patient has globulins. This was done. However, the results are still pending. The total proteins were repeated again on September 23, 2018, which showed a drop in the total protein to 5.5 and albumin to 2.6 and globulins normal. This possibly was because of dehydration as the creatinine also dropped to 1.43. The patient's indices even after transfusion still remains extremely low. The MCV being 79.4, MCHC being 29.9. RDW being 20.1 on September 19, 2018. The patient will receive Infed as an outpatient once discharged. Thank you very much for allowing me to participate in the management of this patient during this hospitalization. Job#: [id number] RI cc:RODNEY KELLY MD
== END 2018-09-24 13:46 | disposition home or self-care (01) | DRG 178 ==
LOC: ER 13:08 → ERHOLD 18:16 → MED/SURG2 22:00
PROVIDERS: ADMIT Internal Medicine; ATTEND Internal Medicine
PROC: 0DB98ZX Excision of Duodenum, Via Natural or Artificial Opening Endoscopic, Diagnostic (ICD-10-PCS; principal; 2018-09-17)
PROC: 0DB68ZX Excision of Stomach, Via Natural or Artificial Opening Endoscopic, Diagnostic (ICD-10-PCS; 2018-09-17)
PROC: 30233N1 Transfusion of Nonautologous Red Blood Cells into Peripheral Vein, Percutaneous Approach (ICD-10-PCS; 2018-09-18)
DX: J69.0 Pneumonitis due to inhalation of food and vomit (principal); I50.22 Chronic systolic (congestive) heart failure; D62 Acute posthemorrhagic anemia; J18.1 Lobar pneumonia, unspecified organism; I11.0 Hypertensive heart disease with heart failure; I25.5 Ischemic cardiomyopathy; I25.10 Atherosclerotic heart disease of native coronary artery without angina pectoris; E11.22 Type 2 diabetes mellitus with diabetic chronic kidney disease; K21.9 Gastro-esophageal reflux disease without esophagitis; M10.9 Gout, unspecified; D50.9 Iron deficiency anemia, unspecified; Z95.820 Peripheral vascular angioplasty status with implants and grafts; E88.09 Other disorders of plasma-protein metabolism, not elsewhere classified; R77.1 Abnormality of globulin; Z95.810 Presence of automatic (implantable) cardiac defibrillator; N40.0 Benign prostatic hyperplasia without lower urinary tract symptoms; K63.5 Polyp of colon; M19.90 Unspecified osteoarthritis, unspecified site; Z87.891 Personal history of nicotine dependence; D13.2 Benign neoplasm of duodenum; K29.70 Gastritis, unspecified, without bleeding; K44.9 Diaphragmatic hernia without obstruction or gangrene
CPT/HCPCS: 36415; 43239; 71045; 71046; 71250; 74176; 74230; 80048; 80051; 80053; 80061; 81001; 82270; 82550; 82553; 82948; 83036; 83540; 83735; 83880; 84443; 84466; 84484; 85014; 85025; 85610; 85730; 86850; 86900; 86920; 87040; 87086; 88305; 88312; 93005; 93306; 94640; 97139; 99285; J0456; J0696; J1100; J1200; J1750; J1940; J2001; J7030; J7040; J7050; J7070; P9016